=== PATIENT | male | born 1955 | race Two or more races ===

== ENCOUNTER 2017-04-28 11:39 | Inpatient (IN) | payer MEDICAID ==
[~2017-04-28] VITALS: Ht 180.3 cm; Wt 109.8 kg
--- NOTE | 2017-04-28 11:40 | NUR ---
PT BIBRA FROM BOARD AND CARE TO ER BED 11 FOR POSSIBLE FOOT ULCER INFECTION. PT IS C/O MIONIMAL PAIN. STATES DRESSING WOUND ON ITS OWN. 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 PER PARAMEDICS, OVER 300+ GOWNED AND PLACED ON MONITOR. NAD NOTED. AWAITING MD CARBAJAL.
--- NOTE | 2017-04-28 11:57 | NUR ---
DR RUGGIERO AT BEDSIDE FOR EVAL.
[2017-04-28] MEDS ORDERED: IV NS 0.9% 1,000 ML BAG IV ONE (12:00)
--- NOTE | 2017-04-28 12:07 | NUR ---
IV LINE STARTED BLOOD DRAWN AND SENT TO LAB.
[2017-04-28 12:10] LABS: EOSINOPHILS # (AUTO) 0.2 /CMM (0.0-0.7)
[2017-04-28 12:13] LABS: BASOPHILS # (AUTO) 0.4 /CMM (0.0-0.2); BASOPHILS % (AUTO) 1.5 % (0.0-2.0); EOSINOPHILS % (AUTO) 0.8 % (0.0-6.0); HEMATOCRIT 37 % (39-51); HEMOGLOBIN 12.4 g/dL (13.5-17.5); LYMPHOCYTES # (AUTO) 1.7 /CMM (0.8-4.8); LYMPHOCYTES % (AUTO) 6.6 % (20.0-44.0); MEAN CORPUSCULAR HEMOGLOBIN 28 PG (26.0-33.0); MEAN CORPUSCULAR HGB CONC 33 g/dl (31.0-36.0); MEAN CORPUSCULAR VOLUME 85 fL (80-96); MONOCYTES # (AUTO) 0.5 /CMM (0.1-1.30); MONOCYTES % (AUTO) 1.9 % (2.0-12.0); NEUTROPHILS # (AUTO) 22.2 /CMM (1.8-8.9); NEUTROPHILS % (AUTO) 89.2 % (43.0-81.0); PLATELET COUNT (AUTO) 593 /CMM (150-450); RDW COEFFICIENT OF VARIATION 12.9 (11.5-15.0)
--- NOTE | 2017-04-28 12:13 | NUR ---
RADIOLOGY AT BEDSIDE FOR CHEST AND L FOOT XRAY.
[2017-04-28 12:24] LABS: INR 1.1 (0.87-1.13); PROTHROMBIN TIME 11.5 SECS (9.5-12.7)
[2017-04-28 12:26] LABS: ALANINE AMINOTRANSFERASE 13 U/L (12-78); ALKALINE PHOSPHATASE 179 U/L (46-116); ASPARTATE AMINOTRANSFERASE 11 U/L (15-37); BILIRUBIN,DIRECT 0.3 mg/dL (0.0-0.2); BILIRUBIN,TOTAL 0.6 mg/dL (0.2-1.0); CALCIUM, SERUM 8.6 mg/dL (8.5-10.1); CARBON DIOXIDE 23 mmol/L (21-32); CHLORIDE 97 mmol/L (98-107); CREATININE 1.1 mg/dL (0.6-1.3); POTASSIUM 3.8 mmol/L (3.5-5.1); SODIUM SERUM 132 mmol/L (136-145); TOTAL PROTEIN, SERUM 8.8 g/dL (6.4-8.2); UREA NITROGEN, BLOOD 12 mg/dL (7-18)
[2017-04-28 12:28] LABS: GLUCOSE 387 mg/dL (74-106); TROPONIN I 0.395 ng/mL (0.00-0.056)
--- NOTE | 2017-04-28 12:29 | NUR ---
PAGED DR HANNA FOR ADMISSION.
[2017-04-28] MEDS ORDERED: VANCOMYCIN 1 GM in IV D5W 250 ML IV ONE (12:30)
[2017-04-28] MEDS ORDERED: CEFTRIAXONE 1GM BAG (ER ONLY) 50 ML IV ONE ×2 (12:30→12:40)
[2017-04-28] MEDS ORDERED: INSULIN REGULAR, HUMAN 100 UNIT/ML 10 ML VIAL ONE (12:40)
[2017-04-28] MEDS ORDERED: INSULIN REGULAR, HUMAN 100 UNIT/ML 10 ML VIAL IV ONE (13:00)
[2017-04-28] MEDS ORDERED: ASPIRIN 325 MG TABLET PO ONE (13:00)
[2017-04-28 13:19] LABS: BAND % (MANUAL) 1 % (0.0-5.0); EOSINOPHILS % (MANUAL) 1 % (0-4); LYMPHOCYTES % (MANUAL) 8 % (16-48); MONOCYTES % (MANUAL) 4 % (0-11.0); NEUTROPHILS % (MANUAL) 86 (42-76)
--- NOTE | 2017-04-28 13:39 | NUR ---
REPORT GIVEN TO YISSEL. PT AWAITING TRANSFER TO FLOOR.
[2017-04-28] MEDS ORDERED: METF500T4 PO (13:41)
[2017-04-28] MEDS ORDERED: HYDR12.5 PO (13:41)
--- NOTE | 2017-04-28 13:50 | NUR ---
CASH APPLICATIONS COORDINATOR NOTES RECEIVED PT FROM E.R. STAFF, PT AWAKE, ALERT AND ORIENTED, NO COMPLAINT OF PAIN, ASSISTED TO BED, MADE COMFORTABLE, ROOM SET UP ORIENTATION PROVIDED TO PT, VERBALIZED UNDERSTANDING, CALL LIGHT PLACED WITHIN REACH, WITH LEFT FOOT WOUND, DRESSING DRY AND INTACT, VITAL SIGNS TAKEN AND RECORDED, AWAITING ADMITTING ORDERS FROM MD.
[2017-04-28 14:00] VITALS: BP 150/92
[2017-04-28] MEDS ORDERED: IV 1/2NS 1000 ML 1,000 ML IV PRN (14:32)
[2017-04-28] MEDS ORDERED: ONDANSETRON HCL/PF 4 MG/2 ML VIAL IVP PRN (15:00)
[2017-04-28] MEDS ORDERED: HYDROCODONE/APAP 5/325MG 1 EACH TABLET PO PRN (15:00)
[2017-04-28] MEDS ORDERED: ZOLPIDEM TARTRATE 5 MG TABLET PO PRN (15:00)
[2017-04-28] MEDS ORDERED: MAG HYDROX/AL HYDROX/SIMETH 30 ML UDC PO PRN (15:00)
[2017-04-28] MEDS ORDERED: Z GUARD REMEDY 2 OZ OINT TP PRN (15:00)
[2017-04-28] MEDS ORDERED: DEXTROSE 50%-WATER 50 ML DISP.SYRIN IV PRN (15:00)
[2017-04-28] MEDS: BLOOD SUGAR DIAGNOSTIC 1 EACH STRIP IN SCH ×3 (15:09→21:03)
[2017-04-28] MEDS ORDERED: FEE PK DOSING 1 MIN EA MC ONE (15:36)
[2017-04-28 16:00] VITALS: BP 151/73
[2017-04-28] MEDS: DOCUSATE SODIUM 100 MG CAPSULE PO SCH ×2 (17:18→17:39)
[2017-04-28] MEDS: METFORMIN 500 MG TABLET PO SCH (17:19)
[2017-04-28] MEDS: IV 1/2NS 1000 ML 1,000 ML IV PRN (17:28)
[2017-04-28] MEDS: METOPROLOL TARTRATE 25 MG TABLET PO SCH ×2 (17:48→20:47)
[2017-04-28] MEDS: ASPIRIN 81 MG TAB.CHEW PO SCH (17:49)
--- NOTE | 2017-04-28 19:03 | NUR ---
DIRECT CARE STAFFER NOTES PT IN BED, AWAKE, ALERT AND ORIENTED, NO COMPLAINT OF PAIN OR ANY DISCOMFORT, BREATHING PATTERN NORMAL, SEEN BY DR. HANNA, PLAN OF CARE DISCUSSED WITH PT, DRESSING CHANGE DONE TO LEFT FOOT, NOTED WITH ELEVATED TROPONIN LEVEL THIS AFTERNOON, DR. HANNA INFORMED, ORDERS GIVEN AND CARRIED OUT, PT TO BE SEEN BY COSTUME DRAPER, PT COOPERATIVE AND COMPLIANT WITH CARE, NEEDS ATTENDED.
--- NOTE | 2017-04-28 19:50 | NUR ---
RN INITIAL NOTES: RECEIVED REPORT FROM YISSEL RIOS. PT IN BED, AWAKE, A/O X3 COOPERATIVE ON RA RESPIRATION EVEN AND UNLABORED, DENIES ANY PAIN OR DISCOMFORT AT THIS TIME. PT HAS RIGHT AC ANAYA ACCESS PATENT AND FLUSHING WELL, INFUSING WITH 1/2 NS AT 125ML/HR, IV ACCESS FREE FROM REDNESS OR INFILTRATION, LEFT FOOT DRESSING IN PLACED, OFFLOADED ON PILLOWS, HAS FOUL SMELLING ODOR, CURRENTLY ON SINUS RHYTHM WITH 1ST DEGREE AV BLOCK AND BBB HR 76, PT DENIES ANY CHEST PAIN OR DISCOMFORT. SAFETY PRECAUTIONS FOR FALL INITAITED CALL LIGHT IN REACH, WILL CONTINUE TO MONITOR
[2017-04-28 20:00] VITALS: BP 146/76
--- NOTE | 2017-04-28 20:00 | NUR ---
LEFT FOOT ASSESSMENT: PT DENIES ANY NUMBNESS OR TINGLING SENSATION ON LEFT LEG, DRESSING C/D/I, BUT WITH VERY FOUL SMELLING ODOR. OFFLOADED ON PILLOWS. PEDAL PULSES PALPABLE.
[2017-04-28] MEDS: ENOXAPARIN SODIUM 60 MG/0.6 ML DISP.SYRIN SQ SCH (20:48)
[2017-04-28] MEDS: *INSULIN REGULAR(HUMULIN R)HUM 100 UNIT/ML VIAL SQ PRN (21:04)
--- NOTE | 2017-04-28 21:04 | NUR ---
BLOOD SUGAR CHECK: CHECKED PT'S BLOOD SUGAR AND REVEAL 71, NO INSULIN GIVEN PER SLIDING SCALE. GIVEN PT SNACK SUCH JELLO AND CRANBERRY JUICE. WILL MONITOR PT FOR ANY S/S OF HYPO GLYCEMIA OR HYPERGLYCEMIA
--- NOTE | 2017-04-28 22:10 | NUR ---
RN NOTES: RELAYED TO DR CRANDALL REGARDING RESULT OF STAT EKG, PT'S ASYMPTOMATIC, DENIES ANY CHEST PAIN VSS, PER MD TO CONTINUE MONITORING THE PT.
[2017-04-29] VITALS: BP 132/75
[2017-04-29] MEDS: PIPERACILLIN /TAZOBACTAM 3.375 G in IV D5W 50 ML IV SCH ×5 (00:12→23:26)
[2017-04-29] MEDS: VANCOMYCIN 1.25 GM in IV D5W 500 ML IV SCH ×2 (01:23→14:22)
[2017-04-29] MEDS: IV 1/2NS 1000 ML 1,000 ML IV PRN (03:46)
[2017-04-29 04:00] VITALS: BP 139/72
--- NOTE | 2017-04-29 05:03 | NUR ---
WOUND CARE: NOTED BLOOD ON PT'S LEFT FOOT DRESSING, PT USED THE BATHROOM AND PUT PRESSURE ON LEFT FOOT, LEFT FOOT WOUND CLEANSED WITH NS PAT DRY OIL EMULSION APPLIED SO IT;S NOT GI=OING TO STICK IN THE DRESSING, COVERED WITH KERLIX, OFFLOADED ON PILLOW, AND ENCOURAGE PT NOT TO PUT WEIGHT ON LEFT FOOT, OR MUCH POSSIBLE USE URINAL, PT AGREE
[2017-04-29] MEDS: BLOOD SUGAR DIAGNOSTIC 1 EACH STRIP IN SCH ×4 (06:40→21:43)
[2017-04-29] MEDS: INSULIN REGULAR, HUMAN 100 UNIT/ML 3 ML VIAL SQ PRN (06:42)
--- NOTE | 2017-04-29 06:43 | NUR ---
ACCU CHECK: BLOOD SUGAR CHECK AT 0600AM AND REVEAL 198, HOWEVER PT REQUESTED TO CHECK THE BLOOD SUGAR AGAIN AT THIS TIME, IT REVEALS 181, 4UNITS OF INSULIN GIVEN PER SLIDING SCALE, WILL MONITOR PT FOR ANY S/S OF HYPOGLYCEMIA
--- NOTE | 2017-04-29 06:52 | NUR ---
RN CLOSING NOTES: PT IN BED, AWAKE, REMAINS ON RA RESPIRATION EVEN AND UNLABORED, REMAINS ON SINUS RHYTHM WITH 1ST DEGREE AV BLOCK, BBB AND INVERTED T WAVE HR 69 DENIES ANY PAIN OR DISCOMFORT. RIGHT AC IV ACCESS REMAINS PATENT AND FLUSHING WELL, INFUSING WITH 1/2 NS AT 125ML/HR. ALSO LEFT FOOT WOUND COVERED WITH DRESSING, DRESSING C/D/I, OFFLOADED ON PILLOWS. PT DENIES ANY NUMBNESS TINGLING SENSATION ON LEFT FOOT. PEDAL PULSES PATENT AND PALPABLE. OFFLOADED ON PILLOWS. VS REMAINS STABLE, NEEDS ATTENDED, SAFETY PRECAUTIONS FOR FALL REMAINS ENGAGED, CALL LIGHT IN REACH, WILL ENDORSE TO DAY RN FOR KRISTIE.
[2017-04-29 07:10] VITALS: BP 143/76
[2017-04-29 07:52] LABS: BASOPHILS # (AUTO) 0.2 /CMM (0.0-0.2); BASOPHILS % (AUTO) 0.8 % (0.0-2.0); EOSINOPHILS # (AUTO) 0.3 /CMM (0.0-0.7); EOSINOPHILS % (AUTO) 1.2 % (0.0-6.0); HEMATOCRIT 36 % (39-51); HEMOGLOBIN 11.7 g/dL (13.5-17.5); LYMPHOCYTES # (AUTO) 2.1 /CMM (0.8-4.8); LYMPHOCYTES % (AUTO) 9.1 % (20.0-44.0); MEAN CORPUSCULAR HEMOGLOBIN 28 PG (26.0-33.0); MEAN CORPUSCULAR HGB CONC 33 g/dl (31.0-36.0); MEAN CORPUSCULAR VOLUME 86 fL (80-96); MONOCYTES # (AUTO) 0.8 /CMM (0.1-1.30); MONOCYTES % (AUTO) 3.6 % (2.0-12.0); NEUTROPHILS % (AUTO) 85.3 % (43.0-81.0); PLATELET COUNT (AUTO) 557 /CMM (150-450); RDW COEFFICIENT OF VARIATION 14.1 (11.5-15.0); RED BLOOD CELL COUNT(AUTO) 4.14 MIL/uL (4.5-6.0); WHITE BLOOD COUNT (AUTO) 23.5 K/uL (4.3-11.0)
--- NOTE | 2017-04-29 08:20 | NUR ---
ms rn received on bed,awake,alert,oriented x4,not in any form of distress, respiration even and unlabored,no sob noted.denies pain at this time,all needs attended.
[2017-04-29 08:37] LABS: ALBUMIN 1.8 g/dL (3.4-5.0); BILIRUBIN,TOTAL 0.5 mg/dL (0.2-1.0); CALCIUM, SERUM 8.7 mg/dL (8.5-10.1); CREATININE 0.9 mg/dL (0.6-1.3); PHOSPHORUS 2.7 mg/dL (2.5-4.9); POTASSIUM 4.1 mmol/L (3.5-5.1); TOTAL PROTEIN, SERUM 7.9 g/dL (6.4-8.2)
[2017-04-29] MEDS ORDERED: METOPROLOL TARTRATE 25 MG TABLET PO SCH (09:00)
--- NOTE | 2017-04-29 10:00 | NUR ---
ms rn was seen by wound doctor, did bedside left foot debridement, tolerated well. will monitor patient.
[2017-04-29] MEDS: METFORMIN 500 MG TABLET PO SCH ×2 (10:05→17:03)
[2017-04-29] MEDS: ASPIRIN 81 MG TAB.CHEW PO SCH (10:06)
[2017-04-29] MEDS: METOPROLOL TARTRATE 25 MG TABLET PO SCH ×2 (10:06→21:44)
[2017-04-29] MEDS: DOCUSATE SODIUM 100 MG CAPSULE PO SCH ×2 (10:06→17:03)
[2017-04-29] MEDS: ENOXAPARIN SODIUM 60 MG/0.6 ML DISP.SYRIN SQ SCH ×2 (10:08→21:45)
--- NOTE | 2017-04-29 10:56 | NUR ---
WOUND CARE CONSULT: PT BEING SEEN BY MACHINE OPERATOR HAY STACKER AT THIS TIME. DEFER TO MACHINE OPERATOR HAY STACKER FOR WOUND TREATMENT PLAN. CURRENT KARI SCORE IS 21. PT STATES IS AMBULATORY AND CONTINENT. WILL SEE PRN.
[2017-04-29] MEDS ORDERED: CEFTRIAXONE 1 G in IV D5W 50 ML IV SCH (12:00)
--- NOTE | 2017-04-29 12:00 | NUR ---
ms rn blood sugar-163 - refused coverage (2 units), will monitor bs.
--- NOTE | 2017-04-29 14:30 | NUR ---
ms rn was seen by dr. dakotah driver/ orders made and carried out.
[2017-04-29 16:00] VITALS: BP 140/70
[2017-04-29] MEDS ORDERED: FUROSEMIDE 20 MG/2 ML VIAL IV ONE (16:00)
--- NOTE | 2017-04-29 17:50 | NUR ---
ms rn bs - 168 - refused coverage,claiming he already took metformin.
--- NOTE | 2017-04-29 18:16 | NUR ---
ms rn on bed,no distress noted, will endorse to specialty sales representative for continuity of care.
--- NOTE | 2017-04-29 19:33 | NUR ---
RN INITIAL NOTES: RECEIVED REPORT FROM SHILPI RIOS. PT IN BED, AWAKE, A/O X3 COOPERATIVE ON RA RESPIRATION EVEN AND UNLABORED, DENIES ANY PAIN OR DISCOMFORT AT THIS TIME. PT HAS RIGHT AC IV ACCESS PATENT AND FLUSHING WELL, INFUSING WITH VANCOMYCIN AT 250ML/HR, IV ACCESS FREE FROM REDNESS OR INFILTRATION, S/P LEFT FOOT WOUND DEBRIDEMENT 04/[address] ANDERSON. LEFT FOOT DRESSING IN PLACED, C/D/I, OFFLOADED ON PILLOWS, TROPONIN STILL ELEVATED DR MANCILLA AWARE, PT DENIES ANY CHEST PAIN OR DISCOMFORT AT THIS TIME. SAFETY PRECAUTIONS FOR FALL INITIATED CALL LIGHT IN REACH, WILL CONTINUE TO MONITOR
[2017-04-29 20:00] VITALS: BP 154/83
--- NOTE | 2017-04-29 20:07 | NUR ---
RN NOTES: MRI CHECKLIST COMPLETED, PT HAS ORDER FOR MRI LEFT FOOT
[2017-04-29 21:00] VITALS: BP 148/77
[2017-04-29] MEDS: ACETAMINOPHEN 325 MG TABLET PO PRN (21:43)
[2017-04-29] MEDS: ATORVASTATIN 40 MG TABLET PO SCH (21:44)
[2017-04-29] MEDS: *INSULIN REGULAR(HUMULIN R)HUM 100 UNIT/ML VIAL SQ PRN (21:44)
--- NOTE | 2017-04-29 21:46 | NUR ---
ACCU CHECK AND TYLENOL: CHECKED PT'S BLOOD SUGAR AND REVEAL 148, PT REFUSED FOR INSULIN HE STATED HE DOESNT WANT IT, ALSO PT C/O 3/10 PAIN ON HIS LEFT FOOT REQUESTING FOR TYLENOL, PRN TYLENOL 650 MG TAB PO ADMINISTERED TOP THE PT AT THIS TIME. WILL CONTINUE TO MONITOR
[2017-04-30] MEDS: VANCOMYCIN 1.25 GM in IV D5W 500 ML IV SCH ×2 (01:02→14:20)
[2017-04-30] MEDS: PIPERACILLIN /TAZOBACTAM 3.375 G in IV D5W 50 ML IV SCH ×3 (05:10→19:07)
[2017-04-30] MEDS: BLOOD SUGAR DIAGNOSTIC 1 EACH STRIP IN SCH ×4 (06:09→22:13)
[2017-04-30] MEDS: ACETAMINOPHEN 325 MG TABLET PO PRN (06:09)
[2017-04-30] MEDS: INSULIN REGULAR, HUMAN 100 UNIT/ML 3 ML VIAL SQ PRN ×3 (06:10→22:20)
--- NOTE | 2017-04-30 06:11 | NUR ---
ACCU CHECK: PT INSISTED ON CHECKING BLOOD SUGAR NOW BECAUSE HE STATED HE WILL TAKE MEDICATION AND WILL EAT SOME SNACK BECAUSE HE'S HUNGRY, BLOOD SUGAR IS 149, HE ALSO REFUSED FOR INSULIN COVERAGE, EDUCATION PROVIDED TO THE PT
--- NOTE | 2017-04-30 06:12 | NUR ---
PRN TYLENOL: TYLENOL 650 MG TAB PO ADMINISTERED TO THE PT FOR C/O OF 3/10 FOOT PAIN, PT REQUESTED TYLENOL FOR PAIN MANAGEMENT
--- NOTE | 2017-04-30 06:50 | NUR ---
RN CLOSING NOTES: PT IN BED, AWAKE, REMAINS ON RA RESPIRATION EVEN AND UNLABORED, DENIES ANY PAIN OR DISCOMFORT. RIGHT AC IV ACCESS REMAINS PATENT AND FLUSHING WELL,ON HL. LEFT FOOT WOUND COVERED WITH DRESSING, DRESSING WITH SOME BLOOD STAINED, OFFLOADED ON PILLOWS. PT DENIES ANY NUMBNESS TINGLING SENSATION ON LEFT FOOT. VS REMAINS STABLE, NEEDS ATTENDED, SAFETY PRECAUTIONS FOR FALL REMAINS ENGAGED, CALL LIGHT IN REACH, WILL ENDORSE TO DAY RN FOR KRISTIE.
--- NOTE | 2017-04-30 07:05 | NUR ---
RN MS NOTES PATIENT ALERT AND ORIENTED, BREATHING EVEN AND UNLABORED, DENIES PAIN AT THIS TIME, NO S/SX OF HYPO OR HYPERGLYCEMIA NOTED, LEFT FOOT WOUND DRESSING C/D/I, NEEDS ATTENDED AND ANTICIPATED, SAFETY MEASURES IN PLACED, CALL LIGHT WITHIN REACH, WILL CONTINUE TO MONITOR.
[2017-04-30 07:23] LABS: CALCIUM, SERUM 8.8 mg/dL (8.5-10.1); POTASSIUM 4.1 mmol/L (3.5-5.1)
[2017-04-30 08:00] VITALS: BP 166/90
--- NOTE | 2017-04-30 09:00 | NUR ---
RN MS NOTES TREATMENT RENDERED ORDERED, DRESSING CHANGED BY DR. ANDERSON. AM CARE RENDERED.
[2017-04-30] MEDS: METFORMIN 500 MG TABLET PO SCH ×2 (09:15→17:38)
[2017-04-30] MEDS: ASPIRIN 81 MG TAB.CHEW PO SCH (09:15)
[2017-04-30] MEDS: METOPROLOL TARTRATE 25 MG TABLET PO SCH ×2 (09:15→21:22)
[2017-04-30] MEDS: DOCUSATE SODIUM 100 MG CAPSULE PO SCH ×2 (09:15→17:38)
[2017-04-30] MEDS: DAKINS HALF STRENGTH (0.25%) 480 ML BOTTLE TOP SCH (09:19)
[2017-04-30] MEDS: ENOXAPARIN SODIUM 60 MG/0.6 ML DISP.SYRIN SQ SCH ×2 (09:23→21:25)
[2017-04-30] MEDS: LISINOPRIL (10MG) 10 MG TABLET PO SCH (14:24)
[2017-04-30 16:00] VITALS: BP 158/89
[2017-04-30] MEDS: LACTOBACILLUS RHAMNOSUS GG 1 EACH CAP.SPRINK PO SCH (17:38)
--- NOTE | 2017-04-30 19:57 | NUR ---
RN MS NOTES PATIENT ALERT AND ORIENTED X4, IN NO DISTRESS, WOUND TREATMENT DONE, DRESSING C/D/I, PATIENT ABLE TO TRANSFER HIMSELF FROM BED TO CHAIR, ALL DUE MEDICATIONS PROVIDED, DENIES PAIN AND DISCOMFORT, ALL NEEDS ATTENDED AND MET, NO S/SX OF HYPO/HYPERGLYCEMIA, CALL LIGHT WITHIN REACH, SAFETY MEASURES IN PLACED, WILL ENDORSE TO PATHOLOGIST FOR KRISTIE.
[2017-04-30 20:00] VITALS: BP 147/80
--- NOTE | 2017-04-30 20:00 | NUR ---
RN NOTES RECEIVED PATIENT IN BED, ALERT AND ORIENTED X4, CALM, NO SOB, ON ROOM AIR, SPO2 94%, DENIES ANY PAIN AT THIS TIME, RIGHT AC SALINE LOCK IS ON KVO, LEFT FOOT ULCER SECURED WITH DRESSING, NOTED MODERATE BLEEDING, DRESSING WILL NEED TO BE CHANGED, NEEDS ATTENDED, CALL LIGHT WITHIN REACH.
[2017-04-30] MEDS: ATORVASTATIN 40 MG TABLET PO SCH (22:13)
--- NOTE | 2017-04-30 22:49 | NUR ---
RN NOTES WOUND CARE PERFORMED TO LEFT FOOT, TOLERATED WELL, OFFLOADED. GIVEN NORCO 5/325 MG PO FOR PAIN OF 6/10. NEEDS ATTENDED, CALL LIGHT WITHIN REACH,
[2017-05-01] MEDS: PIPERACILLIN /TAZOBACTAM 3.375 G in IV D5W 50 ML IV SCH ×3 (00:36→12:07)
[2017-05-01] MEDS: VANCOMYCIN 1.25 GM in IV D5W 500 ML IV SCH ×2 (02:18→15:05)
--- NOTE | 2017-05-01 06:30 | NUR ---
RN NOTES PATIENT IN BED, AWAKE AND ALERT, NO SOB, NO RESPIRATORY DISTRESS, NO COMPLAIN OF PAIN, LEFT AC PERIPHERAL LINE IS PATENT AND INFUSING WELL, NO ADVERSE SIDE EFFECTS TO MEDICATION, COMPLIANT WITH TREATMENT AND MEDICATIONS, CHANGED DRESSING TO LEFT FOOT WOUND, OFFLOADED, ALL DUE MEDICATIONS GIVEN, CALL LIGHT WITHIN REACH.
[2017-05-01] MEDS: BLOOD SUGAR DIAGNOSTIC 1 EACH STRIP IN SCH ×4 (06:44→21:58)
[2017-05-01] MEDS: INSULIN REGULAR, HUMAN 100 UNIT/ML 3 ML VIAL SQ PRN ×3 (06:50→17:29)
[2017-05-01 07:57] LABS: BASOPHILS # (AUTO) 0.1 /CMM (0.0-0.2); BASOPHILS % (AUTO) 0.5 % (0.0-2.0); EOSINOPHILS # (AUTO) 0.5 /CMM (0.0-0.7); EOSINOPHILS % (AUTO) 2.8 % (0.0-6.0); HEMATOCRIT 39 % (39-51); HEMOGLOBIN 12.9 g/dL (13.5-17.5); LYMPHOCYTES # (AUTO) 3.1 /CMM (0.8-4.8); LYMPHOCYTES % (AUTO) 17.5 % (20.0-44.0); MEAN CORPUSCULAR HEMOGLOBIN 28 PG (26.0-33.0); MEAN CORPUSCULAR HGB CONC 33 g/dl (31.0-36.0); MEAN CORPUSCULAR VOLUME 85 fL (80-96); MONOCYTES # (AUTO) 0.7 /CMM (0.1-1.30); MONOCYTES % (AUTO) 3.7 % (2.0-12.0); NEUTROPHILS # (AUTO) 13.5 /CMM (1.8-8.9); NEUTROPHILS % (AUTO) 75.5 % (43.0-81.0); PLATELET COUNT (AUTO) 651 /CMM (150-450); RDW COEFFICIENT OF VARIATION 14.1 (11.5-15.0); RED BLOOD CELL COUNT(AUTO) 4.53 MIL/uL (4.5-6.0); WHITE BLOOD COUNT (AUTO) 17.9 K/uL (4.3-11.0)
[2017-05-01 08:00] VITALS: BP 152/81
[2017-05-01 08:18] LABS: CALCIUM, SERUM 9.3 mg/dL (8.5-10.1); MAGNESIUM 2.1 mg/dL (1.8-2.4); PHOSPHORUS 3.4 mg/dL (2.5-4.9); POTASSIUM 4.7 mmol/L (3.5-5.1)
[2017-05-01] MEDS: METFORMIN 500 MG TABLET PO SCH ×2 (08:36→17:13)
[2017-05-01] MEDS: ASPIRIN 81 MG TAB.CHEW PO SCH (08:36)
[2017-05-01] MEDS: METOPROLOL TARTRATE 25 MG TABLET PO SCH ×2 (08:37→21:58)
[2017-05-01] MEDS: LACTOBACILLUS RHAMNOSUS GG 1 EACH CAP.SPRINK PO SCH ×2 (08:37→17:13)
[2017-05-01] MEDS: LISINOPRIL (10MG) 10 MG TABLET PO SCH (08:37)
[2017-05-01] MEDS: DOCUSATE SODIUM 100 MG CAPSULE PO SCH ×2 (08:37→17:13)
[2017-05-01] MEDS: ENOXAPARIN SODIUM 60 MG/0.6 ML DISP.SYRIN SQ SCH (08:40)
--- NOTE | 2017-05-01 09:30 | NUR ---
m/s process checker: dpm f/u seen and tx done to left foot wound by dr. jimenez at this time, shane. well. instructed to call for assistance. will continue to monitor.
[2017-05-01] MEDS: DAKINS HALF STRENGTH (0.25%) 480 ML BOTTLE TOP SCH (09:57)
[2017-05-01] MEDS: CLOPIDOGREL BISULFATE 75 MG TABLET PO SCH (11:45)
--- NOTE | 2017-05-01 11:45 | NUR ---
m/s chef's assistant: md visit seen and examined by dr. claire at this time and updated plan of care. for picc line placement before d'c per md and pt verbalized understanding.
[2017-05-01 16:00] VITALS: BP 144/74
--- NOTE | 2017-05-01 18:45 | NUR ---
m/s truck crane operator: notes pt resting comfortable in bed with no distress noted. needs attended. awaiting for ampicillin ivpb med, f/u made and spoke to enio (pharmacist) about it. instructed to call for assistance. will continue to monitor.
--- NOTE | 2017-05-01 19:20 | NUR ---
RN OPEN NOTES RECEIVED PATIENT AWAKE IN BED. A/O X4. NO SIGNS OF DISTRESS OR DISCOMFORT. BREATHING EVEN AND UNLABORED. IV ACCESS IN L HAND WITH VANCO CURRENTLY INFUSING, PATENT AND INTACT, NO SIGNS OF REDNESS OR INFILTRATION. DRESSING ON L FOOT C/D/I. DENIES ANY PAIN AT THIS TIME. BED IN LOW LOCKED POSITION WITH SIDE RAILS X2. CALL LIGHT WITHIN REACH. WILL CONTINUE TO MONITOR.
[2017-05-01 20:00] VITALS: BP 154/74
[2017-05-01] MEDS: AMPICILLIN SODIUM 2 GM in IV NS 0.9% 100 ML IV SCH (20:00)
[2017-05-01 20:20] VITALS: BP 154/74
[2017-05-01] MEDS: METRONIDAZOLE 500 MG TABLET PO SCH (21:57)
[2017-05-01] MEDS: ATORVASTATIN 40 MG TABLET PO SCH (21:59)
[2017-05-02] MEDS: AMPICILLIN SODIUM 2 GM in IV NS 0.9% 100 ML IV SCH ×5 (00:33→23:43)
[2017-05-02] MEDS: METRONIDAZOLE 500 MG TABLET PO SCH ×3 (05:56→21:07)
[2017-05-02] MEDS: BLOOD SUGAR DIAGNOSTIC 1 EACH STRIP IN SCH ×4 (06:37→18:13)
[2017-05-02] MEDS: INSULIN REGULAR, HUMAN 100 UNIT/ML 3 ML VIAL SQ PRN ×3 (06:40→18:14)
--- NOTE | 2017-05-02 07:43 | NUR ---
RN CLOSING NOTES PATIENT AWAKE IN BED. A/O X4. NO SIGNS OF DISTRESS OR DISCOMFORT. BREATHING EVEN AND UNLABORED. IV ACCESS IN L HAND PATENT AND INTACT, NO SIGNS OF REDNESS OR INFILTRATION. DRESSING ON L FOOT C/D/I. DENIES ANY PAIN AT THIS TIME. ALL NEEDS MET. NO SIGNIFICANT CHANGES THROUGH THE NIGHT. BED IN LOW LOCKED POSITION WITH SIDE RAILS X2. CALL LIGHT WITHIN REACH. ENDORSED TO AM SHIFT FOR KRISTIE.
[2017-05-02 07:47] LABS: CALCIUM, SERUM 8.9 mg/dL (8.5-10.1); POTASSIUM 4.2 mmol/L (3.5-5.1)
--- NOTE | 2017-05-02 07:53 | NUR ---
RN NOTES RECEIVED PT. PT IS AWAKE AND RESTING IN BED, A/OX4. NO S/S OF DISTRESS OR SOB. NO C/O PAIN AT THIS TIME. IV ACCESS LOCATED ON LEFT HAND 22G, CURRENTLY SL. SAFETY MEASURES IN PLACE, CALL LIGHT WITHIN REACH. WILL CONTINUE TO MONITOR.
[2017-05-02 08:00] VITALS: BP 155/87
[2017-05-02] MEDS: CLOPIDOGREL BISULFATE 75 MG TABLET PO SCH (08:40)
[2017-05-02] MEDS: ASPIRIN 81 MG TAB.CHEW PO SCH (08:40)
[2017-05-02] MEDS: DOCUSATE SODIUM 100 MG CAPSULE PO SCH ×2 (08:40→17:15)
[2017-05-02] MEDS: LACTOBACILLUS RHAMNOSUS GG 1 EACH CAP.SPRINK PO SCH ×2 (08:40→17:13)
[2017-05-02] MEDS: METFORMIN 500 MG TABLET PO SCH ×2 (08:40→17:13)
[2017-05-02] MEDS: LISINOPRIL (10MG) 10 MG TABLET PO SCH ×2 (08:41→17:15)
[2017-05-02] MEDS: METOPROLOL TARTRATE 25 MG TABLET PO SCH ×2 (08:41→21:07)
[2017-05-02] MEDS: DAKINS HALF STRENGTH (0.25%) 480 ML BOTTLE TOP SCH (09:00)
[2017-05-02 16:00] VITALS: BP 162/80
--- NOTE | 2017-05-02 19:25 | NUR ---
MS RN OPENING NOTES: RECEIVED PT IN BED AND IS SLEEPING AT THIS TIME. NO S/S OF DISTRESS OR SOB NOTED. CALL LIGHT WITHIN PT'S REACH. PT HAS IV ON L HAND 22G AND IS PATENT AND INTACT. BED KEPT IN LOW, LOCKED POSITION, AND SIDE RAILS X 2UP. WILL CONTINUE TO MONITOR PT.
--- NOTE | 2017-05-02 19:52 | NUR ---
RN CLOSING NOTES PATIENT IN BED SLEEPING. NO S/S OF DISTRESS OR SOB. DRESSING CHANGED PERFORMED FOR LEFT LOWER EXTREMITY. ALL NEEDS ANTICIPATED AND MET. SAFETY MEASURES IN PLACE, CALL LIGHT IN REACH. WILL ENDORSE TO BELL TIER FOR KRISTIE.
[2017-05-02 20:00] VITALS: BP 172/82
[2017-05-02] MEDS: ATORVASTATIN 40 MG TABLET PO SCH (21:07)
[2017-05-02 22:12] VITALS: BP 124/80
[2017-05-03] MEDS: METRONIDAZOLE 500 MG TABLET PO SCH ×3 (04:56→20:04)
[2017-05-03] MEDS: AMPICILLIN SODIUM 2 GM in IV NS 0.9% 100 ML IV SCH ×4 (05:00→23:02)
[2017-05-03] MEDS: BLOOD SUGAR DIAGNOSTIC 1 EACH STRIP IN SCH ×4 (06:15→21:53)
[2017-05-03] MEDS: INSULIN REGULAR, HUMAN 100 UNIT/ML 3 ML VIAL SQ PRN (07:06)
--- NOTE | 2017-05-03 07:10 | NUR ---
MS RN NOTES: BLOOD SUGAR WAS 165 THIS AM. 4 UNITS OF INSULIN WAS COVERED. WILL CONTINUE TO MONITOR PT.
--- NOTE | 2017-05-03 07:30 | NUR ---
MS RN CLOSING NOTES: ALL NEEDS WERE ATTENDED AND ANTICIPATED FOR. PT DID NOT WANT DRESSING CHANGED. HE VERBALIZED THAT IT IS STILL CLEAN AND PREFERS TO HAVE IT DONE AT A LATER TIME. NO S/S OF DISTRESS OR SOB NOTED AT THIS TIME. CALL LIGHT WITHIN PT'S REACH. PT HAS IV ON L HAND 22G AND IS PATENT AND INTACT. PT IS CURRENTLY H/L. WAS ABLE TO GET PT'S SIGNATURE TO CONSENT TO GET MEDICAL RECORDS FROM OTHER HOSPITAL. ENDORSED TO AM NURSE TO FAX IT OVER. BED KEPT IN LOW, LOCKED POSITION, AND SIDE RAILS X 2UP. ENDORSED TO AM NURSE FOR KRISTIE.
[2017-05-03 08:00] VITALS: BP 173/80
--- NOTE | 2017-05-03 08:17 | NUR ---
RN NOTES RECEIVED PT. PT IS STABLE AND AWAKE IN BEDSIDE CHAIR. A/OX3. NO S/S OF DISTRESS OR SOB. NO C/O PAIN AT THIS TIME. LEFT LE WOUND DRESSING APPEARS CLEAN. PT IS ON RA WITH O2 SAT ABOVE 95%. IV ACCESS ON LEFT HAND 22G, SL. WILL ADDRESS ALL PT NEEDS. SAFETY MEASURES IN PLACE, CALL LIGHT WITHIN REACH. WILL CONTINUE TO MONITOR.
[2017-05-03 08:22] LABS: CALCIUM, SERUM 9.3 mg/dL (8.5-10.1); CREATININE 0.9 mg/dL (0.6-1.3); POTASSIUM 4.3 mmol/L (3.5-5.1)
[2017-05-03] MEDS: LACTOBACILLUS RHAMNOSUS GG 1 EACH CAP.SPRINK PO SCH ×2 (08:57→17:25)
[2017-05-03] MEDS: CLOPIDOGREL BISULFATE 75 MG TABLET PO SCH (08:57)
[2017-05-03] MEDS: DOCUSATE SODIUM 100 MG CAPSULE PO SCH ×2 (08:57→17:24)
[2017-05-03] MEDS: DAKINS HALF STRENGTH (0.25%) 480 ML BOTTLE TOP SCH (08:57)
[2017-05-03] MEDS: ASPIRIN 81 MG TAB.CHEW PO SCH (08:57)
[2017-05-03] MEDS: METFORMIN 500 MG TABLET PO SCH ×2 (08:57→17:24)
[2017-05-03] MEDS: METOPROLOL TARTRATE 25 MG TABLET PO SCH ×2 (09:01→20:04)
[2017-05-03] MEDS: LISINOPRIL (10MG) 10 MG TABLET PO SCH ×2 (09:01→17:24)
[2017-05-03] MEDS: *INSULIN REGULAR(HUMULIN R)HUM 100 UNIT/ML VIAL SQ PRN ×3 (11:37→22:11)
[2017-05-03 16:00] VITALS: BP 142/78
--- NOTE | 2017-05-03 18:41 | NUR ---
RN CLOSING NOTES PT IN BED RESTING. A/OX3. NO S/S OF DISTRESS OR SOB AT THIS TIME. LE WOUND DRESSING CHANGE PERFORMED. RECEIVED CALL FROM DAUGHTER, JOSEF, REQUESTING TO SPEAK WITH MD AND FOR PSYCH CONSULT. DAUGHTER INSISTS THAT PT IS NON COMPLIANT WITH MEDICATION REGIMEN WHEN AT HOME, LEADING TO EXACERBATION OF SCHIZOPHRENIA SYMPTOMS. ANTICIPATED AND MET ALL PT NEEDS. SAFETY MEASURES IN PLACE. CALL LIGHT WITHIN REACH. WILL ENDORSE TO HEAT TREAT SUPERVISOR FOR KRISTIE. Addendum: 05/03/17 at 1846 by BLUE HARRISON DAUGHTER: JOSEF SCHROEDER
--- NOTE | 2017-05-03 19:05 | NUR ---
MS RN OPENING NOTES: RECEIVED PT SITTING UP IN CHAIR. PT IS A/OX 3-4. PT HAS IV ON L HAND #22G AND IS PATENT AND INTACT. PT IS CURRENTLY H/L. NO S/S OF DISTRESS NOTED AT THIS TIME. NO SOB OR PAIN VERBALIZED. CALL LIGHT WITHIN PT'S REACH. BED KEPT IN LOW, LOCKED POSITION, AND SIDE RAILS X 2 UP. BED KEPT IN LOW, LOCKED POSITION, AND SIDE RAILS X 2 UP. WILL CONTINUE TO MONITOR PT.
[2017-05-03 20:00] VITALS: BP 141/73
[2017-05-03] MEDS: ATORVASTATIN 40 MG TABLET PO SCH (21:53)
--- NOTE | 2017-05-03 22:14 | NUR ---
MS RN NOTES: BLOOD SUGAR WAS 134. 2 UNITS OF INSULIN WAS ADMINISTERED. WILL CONTINUE TO MONITOR PT.
[2017-05-04] MEDS: METRONIDAZOLE 500 MG TABLET PO SCH ×3 (05:05→20:09)
[2017-05-04] MEDS: AMPICILLIN SODIUM 2 GM in IV NS 0.9% 100 ML IV SCH ×4 (05:05→23:00)
[2017-05-04] MEDS: BLOOD SUGAR DIAGNOSTIC 1 EACH STRIP IN SCH ×4 (06:33→21:32)
[2017-05-04] MEDS: INSULIN REGULAR, HUMAN 100 UNIT/ML 3 ML VIAL SQ PRN ×2 (06:45→11:55)
--- NOTE | 2017-05-04 06:48 | NUR ---
MS RN NOTES: BLOOD SUGAR THIS AM WAS 157. 2 UNITS OF INSULIN WAS COVERED. WILL CONTINUE TO MONITOR PT.
--- NOTE | 2017-05-04 07:05 | NUR ---
MS RN CLOSING NOTES: ALL NEEDS WERE ATTENDED AND ANTICIPATED FOR .DRESSING ON L FOOT PERFORMED THIS AM. PT IS RESTING IN BED. PS IS A/OX3-4. PT HAS IV ON L HAND #22G AND IS PATENT AND INTACT. PT IS CURRENTLY H/L. NO S/S OF DISTRESS NOTED AT THIS TIME. NO SOB OR PAIN VERBALIZED. CALL LIGHT WITHIN PT'S REACH. BED KEPT IN LOW, LOCKED POSITION, AND SIDE RAILS X 2 UP. BED KEPT IN LOW, LOCKED POSITION, AND SIDE RAILS X 2 UP. ENDORSED TO AM NURSE FOR KRISTIE.
[2017-05-04 07:16] LABS: MAGNESIUM 1.8 mg/dL (1.8-2.4); PHOSPHORUS 3.2 mg/dL (2.5-4.9); POTASSIUM 4.7 mmol/L (3.5-5.1)
[2017-05-04 07:54] LABS: BASOPHILS % (AUTO) 0.2 % (0.0-2.0); EOSINOPHILS # (AUTO) 0.3 /CMM (0.0-0.7); EOSINOPHILS % (AUTO) 1.8 % (0.0-6.0); HEMATOCRIT 39 % (39-51); HEMOGLOBIN 12.9 g/dL (13.5-17.5); LYMPHOCYTES # (AUTO) 3.2 /CMM (0.8-4.8); LYMPHOCYTES % (AUTO) 20.2 % (20.0-44.0); MEAN CORPUSCULAR HEMOGLOBIN 28 PG (26.0-33.0); MEAN CORPUSCULAR HGB CONC 33 g/dl (31.0-36.0); MEAN CORPUSCULAR VOLUME 86 fL (80-96); MONOCYTES # (AUTO) 0.7 /CMM (0.1-1.30); MONOCYTES % (AUTO) 4.2 % (2.0-12.0); NEUTROPHILS # (AUTO) 11.5 /CMM (1.8-8.9); NEUTROPHILS % (AUTO) 73.6 % (43.0-81.0); PLATELET COUNT (AUTO) 578 /CMM (150-450); RDW COEFFICIENT OF VARIATION 14.8 (11.5-15.0); RED BLOOD CELL COUNT(AUTO) 4.57 MIL/uL (4.5-6.0); WHITE BLOOD COUNT (AUTO) 15.7 K/uL (4.3-11.0)
[2017-05-04 08:00] VITALS: BP 155/82
[2017-05-04] MEDS: LACTOBACILLUS RHAMNOSUS GG 1 EACH CAP.SPRINK PO SCH ×2 (08:24→16:38)
[2017-05-04] MEDS: METOPROLOL TARTRATE 25 MG TABLET PO SCH ×2 (08:25→20:09)
[2017-05-04] MEDS: LISINOPRIL (10MG) 10 MG TABLET PO SCH ×2 (08:25→16:38)
[2017-05-04] MEDS: ASPIRIN 81 MG TAB.CHEW PO SCH (08:25)
[2017-05-04] MEDS: METFORMIN 500 MG TABLET PO SCH ×2 (08:25→16:37)
[2017-05-04] MEDS: CLOPIDOGREL BISULFATE 75 MG TABLET PO SCH (08:25)
[2017-05-04] MEDS: DOCUSATE SODIUM 100 MG CAPSULE PO SCH ×2 (08:27→16:38)
[2017-05-04] MEDS: DAKINS HALF STRENGTH (0.25%) 480 ML BOTTLE TOP SCH (08:27)
--- NOTE | 2017-05-04 08:30 | NUR ---
MS RN OPENING NOTE PATIENT IS ALERT AND ORIENTED x4. NO PAIN AT THIS TIME. NO SOB OR DISTRESS NOTED. ON ROOM AIR, O2 SAT AT 97%. CALL LIGHT WITHIN REACH. SAFETY MEASURES IMPLEMENTED. ABLE TO COMMUNICATE. BRP AMBULATES WITH ASSISTANCE. HAS LEFT FOOT WOUND THAT WILL REQUIRE TREATMENT ON MY SHIFT. DIABETIC DIET. COMPLIANT WITH MEDICATIONS AND TREATMENT. PER RNFA NURSE WILL REQUIRE PICC LINE INSERTION FOR 6 WEEK COURSE ANTIBIOTICS. PATIENT DECLINES CARDIAC CATH. BLOOD SUGAR MONITORING TO BE DONE. WILL CONTINUE TO MONITOR THROUGHOUT SHIFT
--- NOTE | 2017-05-04 12:17 | NUR ---
MS RN NOTE BLOOD SUGAR CHECKED- 194. INSULIN GIVEN -4 UNITS.
[2017-05-04 16:00] VITALS: BP 140/79
--- NOTE | 2017-05-04 18:48 | NUR ---
MS RN CLOSING NOTE PATIENT IS ALERT AND ORIENTED x4. NO PAIN AT THIS TIME. NO SOB OR DISTRESS NOTED. CALL LIGHT WITHIN REACH AT ALL TIMES. SAFETY MEASURES IMPLEMENTED. ABLE TO COMMUNICATE NEEDS. WOUND TREATMENT DONE. ALL DUE MEDICATIONS GIVEN ORDERED. ALL NURSING CARE NEEDS ATTENDED TO. BLOOD SUGAR MONITORED THROUGHOUT SHIFT, LAST SUGAR 105 NO INSULIN NEEDED. AWAITING PSYCH CONSULT WITH DR. FLOYD. WILL ENDORSE TO AED TRAINER FOR KRISTIE
--- NOTE | 2017-05-04 19:22 | NUR ---
MS RN OPENING NOTES: RECEIVED PT AND IS A/OX4. PAIN DENIES ANY PAIN AT THIS TIME. NO SOB/DISTRESS NOTED AT THIS TIME. CALL LIGHT WITHIN PT'S REACH. CANE AT REACH WELL. PT RESTING COMFORTABLY. PT HAS IV ON R HAND #22G AND IS PATENT AND INTACT. ENDORSED THAT PT WILL HAVE PSYCH CONSULT TOMORROW. WILL CONTINUE TO MONITOR PT.
[2017-05-04 20:00] VITALS: BP 144/99
[2017-05-04] MEDS: *INSULIN REGULAR(HUMULIN R)HUM 100 UNIT/ML VIAL SQ PRN (21:37)
[2017-05-04] MEDS: ATORVASTATIN 40 MG TABLET PO SCH (21:38)
--- NOTE | 2017-05-04 21:38 | NUR ---
MS RN NOTES: HAD TO MANUALLY ENTER BARCODE SINCE PART OF BARCODE FROM MEDICATION WAS PEELED OFF AND BAR GUN WOULD NOT SCAN FOR LIPITOR 40MG.
--- NOTE | 2017-05-04 21:38 | NUR ---
MS RN NOTES: BLOOD SUGAR WAS 151. 2 UNITS OF INSULIN WAS ADMINISTERED. WILL CONTINUE TO MONITOR PT.
[2017-05-04 22:47] VITALS: BP 147/85
[2017-05-05] MEDS: AMPICILLIN SODIUM 2 GM in IV NS 0.9% 100 ML IV SCH ×4 (05:01→23:10)
[2017-05-05] MEDS: METRONIDAZOLE 500 MG TABLET PO SCH ×3 (05:01→21:04)
[2017-05-05] MEDS: BLOOD SUGAR DIAGNOSTIC 1 EACH STRIP IN SCH ×4 (06:02→21:02)
--- NOTE | 2017-05-05 06:29 | NUR ---
MS RN CLOSING NOTES: ALL NEEDS WERE ATTENDED AND ANTICIPATED FOR. DRESSING ON L WOUND TREATMENT PERFORMED THIS AM. PT IS A/OX 4. PT IS SITTING UP IN BED. PT DENIES ANY PAIN AT THIS TIME. NO S/S OF DISTRESS NOTED AT THIS TIME. NO SOB NOTED AT THIS TIME. CANE AT BEDSIDE WELL. PT HAS IV ON R HAND #22G AND IS PATENT AND INTACT. PT CURRENTLY H/L. BLOOD SUGAR THIS AM WAS 153. 2 UNITS OF INSULIN TO BE ADMINISTERED. CALL LIGHT WITHIN PT'S REACH. BED KEPT IN LOW, LOCKED POSITION, AND SIDE RAILS X 2 UP. WILL ENDORSE TO AM NURSE FOR KRISTIE.
[2017-05-05] MEDS: INSULIN REGULAR, HUMAN 100 UNIT/ML 3 ML VIAL SQ PRN ×3 (06:59→17:16)
--- NOTE | 2017-05-05 07:30 | NUR ---
AM RN NOTE Received patient awake, A/O X3 verbally responsive. No acute distress noted. Resp even and non-labored. IV site intact and patent. Dressing intact on left foot. Will continue to monitor. Call light with in reach.
[2017-05-05 08:00] VITALS: BP 111/77
[2017-05-05] MEDS: LACTOBACILLUS RHAMNOSUS GG 1 EACH CAP.SPRINK PO SCH ×2 (08:30→17:11)
[2017-05-05] MEDS: DOCUSATE SODIUM 100 MG CAPSULE PO SCH ×2 (08:30→17:11)
[2017-05-05] MEDS: CLOPIDOGREL BISULFATE 75 MG TABLET PO SCH (08:30)
[2017-05-05] MEDS: ASPIRIN 81 MG TAB.CHEW PO SCH (08:31)
[2017-05-05] MEDS: LISINOPRIL (10MG) 10 MG TABLET PO SCH ×2 (08:31→17:12)
[2017-05-05] MEDS: METFORMIN 500 MG TABLET PO SCH ×2 (08:31→17:11)
[2017-05-05] MEDS: METOPROLOL TARTRATE 25 MG TABLET PO SCH ×2 (08:31→21:03)
[2017-05-05] MEDS: DAKINS HALF STRENGTH (0.25%) 480 ML BOTTLE TOP SCH (08:32)
--- NOTE | 2017-05-05 15:48 | NUR ---
AM RN NOTE Patient IV site noted with leakage, re-inserted new site on right hand #22 x1 attempt.
[2017-05-05 16:00] VITALS: BP 154/90
--- NOTE | 2017-05-05 18:56 | NUR ---
AM RN NOTE Patient awake, denies any pain or discomfort at this time. All needs met and attended in timely manner. IV site intact and patent. Will endorse care to next shift.
--- NOTE | 2017-05-05 19:35 | NUR ---
MS RN INITIAL NOTES PT IS SITTING UP IN THE CHAIR, A/O X3. NO SIGNS OF SOB OR DISTRESS. BREATHING EVENLY AND UNLABORED ON ROOM AIR. DENIES PAIN AT THIS TIME. DRESSING IN FOOT IS INTACT. CALL LIGHT WITHIN REACH. WILL CONTINUE TO MONITOR.
[2017-05-05 20:00] VITALS: BP 143/73
[2017-05-05] MEDS: ATORVASTATIN 40 MG TABLET PO SCH (21:03)
[2017-05-06] MEDS: METRONIDAZOLE 500 MG TABLET PO SCH ×2 (04:55→12:40)
[2017-05-06] MEDS: AMPICILLIN SODIUM 2 GM in IV NS 0.9% 100 ML IV SCH ×2 (05:00→12:40)
[2017-05-06] MEDS: INSULIN REGULAR, HUMAN 100 UNIT/ML 3 ML VIAL SQ PRN ×2 (06:06→12:42)
[2017-05-06] MEDS: BLOOD SUGAR DIAGNOSTIC 1 EACH STRIP IN SCH ×2 (06:06→12:40)
--- NOTE | 2017-05-06 06:25 | NUR ---
MS RN CLOSING NOTES PT IS IN BED A/O X3 ABLE TO MAKE NEEDS KNOWN. NO SIGNS OF SOB OR DISTRESS. WOUND CARE RENDERED. ALL NEEDS WERE ANTICIPATED AND MET. BED IS IN LOW AND LOCKED POSITION, CALL LIGHT WITHIN REACH. WILL ENDORSE TO DAY SHIFT
--- NOTE | 2017-05-06 07:25 | NUR ---
RN NOTES REPORT RECEIVED AT THE BEDSIDE. PATIENT IS RESTING COMFORTABLY IN BED. NO SOB OR DISTRESS NOTED AT THIS TIME. PATIENT DENIES PAIN. BED IN A LOW POSITION, CALL LIGHT WITHIN PATIENT REACH. WILL CONTINUE TO MONITOR.
[2017-05-06 08:00] VITALS: BP 156/86
[2017-05-06] MEDS: LACTOBACILLUS RHAMNOSUS GG 1 EACH CAP.SPRINK PO SCH ×2 (08:31→16:48)
[2017-05-06] MEDS: METFORMIN 500 MG TABLET PO SCH ×2 (08:31→16:48)
[2017-05-06] MEDS: LISINOPRIL (10MG) 10 MG TABLET PO SCH ×2 (08:32→16:48)
[2017-05-06] MEDS: DOCUSATE SODIUM 100 MG CAPSULE PO SCH ×2 (08:33→16:48)
[2017-05-06] MEDS: METOPROLOL TARTRATE 25 MG TABLET PO SCH (08:33)
[2017-05-06] MEDS: ASPIRIN 81 MG TAB.CHEW PO SCH (08:33)
[2017-05-06] MEDS: CLOPIDOGREL BISULFATE 75 MG TABLET PO SCH (08:33)
[2017-05-06] MEDS: DAKINS HALF STRENGTH (0.25%) 480 ML BOTTLE TOP SCH (08:34)
[2017-05-06 12:35] LABS: BASOPHILS # (AUTO) 0.1 /CMM (0.0-0.2); BASOPHILS % (AUTO) 0.4 % (0.0-2.0); EOSINOPHILS # (AUTO) 0.2 /CMM (0.0-0.7); EOSINOPHILS % (AUTO) 1.1 % (0.0-6.0); HEMATOCRIT 37 % (39-51); HEMOGLOBIN 12.1 g/dL (13.5-17.5); LYMPHOCYTES # (AUTO) 2.6 /CMM (0.8-4.8); LYMPHOCYTES % (AUTO) 15.4 % (20.0-44.0); MEAN CORPUSCULAR HEMOGLOBIN 28 PG (26.0-33.0); MEAN CORPUSCULAR HGB CONC 33 g/dl (31.0-36.0); MEAN CORPUSCULAR VOLUME 87 fL (80-96); MONOCYTES # (AUTO) 0.8 /CMM (0.1-1.30); MONOCYTES % (AUTO) 4.6 % (2.0-12.0); NEUTROPHILS # (AUTO) 13.3 /CMM (1.8-8.9); NEUTROPHILS % (AUTO) 78.5 % (43.0-81.0); PLATELET COUNT (AUTO) 586 /CMM (150-450); RDW COEFFICIENT OF VARIATION 14.5 (11.5-15.0); RED BLOOD CELL COUNT(AUTO) 4.28 MIL/uL (4.5-6.0); WHITE BLOOD COUNT (AUTO) 16.9 K/uL (4.3-11.0)
[2017-05-06 16:00] VITALS: BP 149/76
[2017-05-06 16:48] VITALS: BP 149/76
--- NOTE | 2017-05-06 17:05 | NUR ---
RN NOTES PATIENT TOOK 1700 MEDS, BUT IS REFUSING ACCUCHECK. PATIENT IS DUE FOR DISCHARGE WITHIN THE NEXT HALF HOUR AND STATES HE WILL CHECK HIS SUGAR WHEN HE GETS HOME.
--- NOTE | 2017-05-06 17:44 | NUR ---
LAUNDRY CLERK DISCHARGE INSTRUCTIONS GIVEN TO THE PATIENT AND ABLE TO UNDERSTAND. ALL PAPERWORK SIGNED AND BELONGINGS ACCOUNTED FOR. LIST OF CLINICS PROVIDED TO THE PATIENT FOR FOLLOWUP CARE. PRESCRIPTION GIVEN TO THE PATIENT WITH INSTRUCTIONS ON DOSAGES AND TIMING. PATIENT REFUSED DISCHARGE PICTURES THE DOCTOR CHANGED THE DRESSINGS THIS MORNING AND HE DOES NOT WISH THEM TO BE CHANGED AGAIN. PATIENT REFUSES FLU AND PNEUMONIA VACCINES ON DC. PATIENT LEFT IN STABLE CONDITION, VIA WHEELCHAIR, WITH VAN ATTENDANT TO ASSISTED LIVING. NO SOB OR DISTRESS NOTED AT THIS TIME. PATIENT DENIES PAIN. IV DISCONNECTED AND PRESSURE APPLIED, NO BLEEDING NOTED AT THE SITE.
== END 2017-05-06 17:40 | DRG 710 ==
LOC: ER 11:42 → EDSEX 11:42 → TELE 13:35 → MED 04-29 08:21
PROVIDERS: ADMIT Internal Medicine; ATTEND Internal Medicine
PROC: 0QBP0ZZ Excision of Left Metatarsal, Open Approach (ICD-10-PCS; principal; 2017-04-29)
DX: A41.9 Sepsis, unspecified organism (principal); I21.4 Non-ST elevation (NSTEMI) myocardial infarction; I50.31 Acute diastolic (congestive) heart failure; A48.0 Gas gangrene; I45.3 Trifascicular block; E11.42 Type 2 diabetes mellitus with diabetic polyneuropathy; M86.172 Other acute osteomyelitis, left ankle and foot; E11.69 Type 2 diabetes mellitus with other specified complication; E11.621 Type 2 diabetes mellitus with foot ulcer; E11.65 Type 2 diabetes mellitus with hyperglycemia; E66.01 Morbid (severe) obesity due to excess calories; E78.5 Hyperlipidemia, unspecified; F20.9 Schizophrenia, unspecified; I25.10 Atherosclerotic heart disease of native coronary artery without angina pectoris; Z91.19 Patient's noncompliance with other medical treatment and regimen; L97.529 Non-pressure chronic ulcer of other part of left foot with unspecified severity; Z68.33 Body mass index [BMI] 33.0-33.9, adult; M89.772 Major osseous defect, left ankle and foot; I11.0 Hypertensive heart disease with heart failure; Z79.84 Long term (current) use of oral hypoglycemic drugs
CPT/HCPCS: 36415; 71010-TC; 73630-TC; 73718-TC; 80048-TC; 80053-TC; 80061-TC; 80076-TC; 80202-TC; 82962-TC; 83605-TC; 83735-TC; 84100-TC; 84484-TC; 85025-TC; 85730-TC; 87040-TC; 87070-TC; 87081-TC; 87186-TC; 93307-TC; A4217; A4606; A6253; A6402; A6403; A6407; J0290; J0696; J1650; J1815; J1940; J2543; J3370; J3490; J7030; J7050; J7060; Z7610

== ENCOUNTER 2017-07-14 17:34 | Inpatient (IN) | payer MEDICAID, OTHER ==
[~2017-07-14] VITALS: Ht 180.3 cm; Wt 112.2 kg
[~2017-07-14 17:34] MED LIST: HYDR12.5 PO; METF500T4 PO
[2017-07-14 18:12] LABS: BASOPHILS # (AUTO) 0.3 /CMM (0.0-0.2); BASOPHILS % (AUTO) 1.6 % (0.0-2.0); EOSINOPHILS # (AUTO) 0.1 /CMM (0.0-0.7); EOSINOPHILS % (AUTO) 0.7 % (0.0-6.0); HEMATOCRIT 38 % (39-51); HEMOGLOBIN 12.5 g/dL (13.5-17.5); LYMPHOCYTES # (AUTO) 2.8 /CMM (0.8-4.8); LYMPHOCYTES % (AUTO) 17.4 % (20.0-44.0); MEAN CORPUSCULAR HEMOGLOBIN 28 PG (26.0-33.0); MEAN CORPUSCULAR HGB CONC 33 g/dl (31.0-36.0); MEAN CORPUSCULAR VOLUME 84 fL (80-96); MONOCYTES # (AUTO) 0.9 /CMM (0.1-1.30); MONOCYTES % (AUTO) 5.4 % (2.0-12.0); NEUTROPHILS # (AUTO) 11.9 /CMM (1.8-8.9); NEUTROPHILS % (AUTO) 74.9 % (43.0-81.0); PLATELET COUNT (AUTO) 441 /CMM (150-450); RDW COEFFICIENT OF VARIATION 13.2 (11.5-15.0); RED BLOOD CELL COUNT(AUTO) 4.53 MIL/uL (4.5-6.0)
[2017-07-14 18:26] LABS: CALCIUM, SERUM 8.7 mg/dL (8.5-10.1); CREATININE 1.1 mg/dL (0.6-1.3); INR 1.09 (0.87-1.13); POTASSIUM 4.1 mmol/L (3.5-5.1); PROTHROMBIN TIME 11.3 SECS (9.5-12.7)
[2017-07-14] MEDS ORDERED: IV NS 0.9% 1,000 ML BAG IV ONE (18:30)
[2017-07-14] MEDS ORDERED: VANCOMYCIN 1 GM in IV D5W 250 ML IV ONE (18:30)
[2017-07-14] MEDS ORDERED: PIPERACILLIN /TAZOBACTAM 3.375 G in IV D5W 50 ML IV ONE (18:30)
[2017-07-14] MEDS ORDERED: INSULIN REGULAR, HUMAN 100 UNIT/ML 10 ML VIAL SQ ONE (18:30)
[2017-07-14 18:35] LABS: C-REACTIVE PROTEIN 8.2 mg/dL (0.0-0.9)
[2017-07-14] MEDS ORDERED: INSULIN REGULAR, HUMAN 100 UNIT/ML 10 ML VIAL ONE (18:37)
[2017-07-14 19:06] LABS: TROPONIN I 0.034 ng/mL (0.00-0.056)
[2017-07-14 20:00] VITALS: BP 156/96
[2017-07-14 20:35] VITALS: BP 156/96
[2017-07-14] MEDS ORDERED: DEXTROSE 50%-WATER 50 ML DISP.SYRIN IV PRN (21:00)
[2017-07-14] MEDS ORDERED: ACETAMINOPHEN 325 MG TABLET PO PRN (21:00)
[2017-07-14] MEDS ORDERED: ONDANSETRON HCL/PF 4 MG/2 ML VIAL IVP PRN (21:00)
[2017-07-14] MEDS ORDERED: Z GUARD REMEDY 2 OZ OINT TP PRN (21:00)
[2017-07-14] MEDS ORDERED: MAG HYDROX/AL HYDROX/SIMETH 30 ML UDC PO PRN (21:00)
[2017-07-14] MEDS ORDERED: HYDROCODONE/APAP 5/325MG 1 EACH TABLET PO PRN (21:00)
[2017-07-14] MEDS ORDERED: MAGNESIUM HYDROXIDE 30 ML UDC PO PRN (21:00)
[2017-07-14] MEDS ORDERED: FEE PK DOSING 1 MIN EA MC ONE (21:07)
[2017-07-14] MEDS: BLOOD SUGAR DIAGNOSTIC 1 EACH STRIP IN SCH (22:13)
[2017-07-14] MEDS: INSULIN REGULAR, HUMAN 100 UNIT/ML 3 ML VIAL SQ PRN (22:13)
[2017-07-14] MEDS: IV NS 0.9% 1,000 ML IV PRN (22:21)
[2017-07-14] MEDS: PIPERACILLIN /TAZOBACTAM 3.375 G in IV D5W 50 ML IV SCH (23:48)
[2017-07-15] MEDS: PIPERACILLIN /TAZOBACTAM 3.375 G in IV D5W 50 ML IV SCH ×3 (06:10→17:20)
[2017-07-15] MEDS: BLOOD SUGAR DIAGNOSTIC 1 EACH STRIP IN SCH ×4 (06:31→22:20)
[2017-07-15] MEDS: INSULIN REGULAR, HUMAN 100 UNIT/ML 3 ML VIAL SQ PRN ×3 (06:32→22:22)
[2017-07-15] MEDS ORDERED: VANCOMYCIN 1.25 GM in IV D5W 500 ML IV SCH (07:00)
[2017-07-15 07:18] LABS: BASOPHILS # (AUTO) 0.1 /CMM (0.0-0.2); BASOPHILS % (AUTO) 0.4 % (0.0-2.0); EOSINOPHILS # (AUTO) 0.3 /CMM (0.0-0.7); EOSINOPHILS % (AUTO) 2.3 % (0.0-6.0); HEMATOCRIT 34 % (39-51); HEMOGLOBIN 11.4 g/dL (13.5-17.5); LYMPHOCYTES # (AUTO) 2.8 /CMM (0.8-4.8); LYMPHOCYTES % (AUTO) 20.6 % (20.0-44.0); MEAN CORPUSCULAR HEMOGLOBIN 28 PG (26.0-33.0); MEAN CORPUSCULAR HGB CONC 33 g/dl (31.0-36.0); MEAN CORPUSCULAR VOLUME 85 fL (80-96); MONOCYTES # (AUTO) 0.9 /CMM (0.1-1.30); MONOCYTES % (AUTO) 6.6 % (2.0-12.0); NEUTROPHILS # (AUTO) 9.4 /CMM (1.8-8.9); NEUTROPHILS % (AUTO) 70.1 % (43.0-81.0); PLATELET COUNT (AUTO) 374 /CMM (150-450); RDW COEFFICIENT OF VARIATION 14.3 (11.5-15.0); RED BLOOD CELL COUNT(AUTO) 4.06 MIL/uL (4.5-6.0); WHITE BLOOD COUNT (AUTO) 13.4 K/uL (4.3-11.0)
[2017-07-15 07:47] LABS: TROPONIN I 0.044 ng/mL (0.00-0.056)
[2017-07-15 07:56] LABS: ALBUMIN 2.3 g/dL (3.4-5.0); BILIRUBIN,TOTAL 0.4 mg/dL (0.2-1.0); CALCIUM, SERUM 8.7 mg/dL (8.5-10.1); CREATININE 0.9 mg/dL (0.6-1.3); MAGNESIUM 1.8 mg/dL (1.8-2.4); PHOSPHORUS 3.2 mg/dL (2.5-4.9); POTASSIUM 3.5 mmol/L (3.5-5.1); TOTAL PROTEIN, SERUM 7.3 g/dL (6.4-8.2)
[2017-07-15 08:00] VITALS: BP_SYST 156; BP_SYST 164; BP_DIAS 96; BP_DIAS 97
[2017-07-15 08:04] LABS: THYROID STIMULATING HORMONE 2.556 uIU/mL (0.358-3.74)
[2017-07-15] MEDS: METFORMIN 500 MG TABLET PO SCH ×2 (09:56→17:17)
[2017-07-15 10:14] VITALS: BP 162/97
[2017-07-15 16:00] VITALS: BP_SYST 144; BP_SYST 167; BP_DIAS 81; BP_DIAS 97
[2017-07-15] MEDS: LACTOBACILLUS RHAMNOSUS GG 1 EACH CAP.SPRINK PO SCH (17:17)
[2017-07-15] MEDS: VANCOMYCIN 1.25 GM in IV D5W 500 ML IV SCH (18:09)
[2017-07-15 20:00] VITALS: BP_SYST 157; BP_SYST 158; BP_DIAS 88; BP_DIAS 91
[2017-07-16] MEDS: PIPERACILLIN /TAZOBACTAM 3.375 G in IV D5W 50 ML IV SCH ×5 (00:01→23:39)
[2017-07-16] MEDS: IV NS 0.9% 1,000 ML IV PRN (05:27)
[2017-07-16] MEDS: VANCOMYCIN 1.25 GM in IV D5W 500 ML IV SCH ×2 (06:06→18:20)
[2017-07-16] MEDS: BLOOD SUGAR DIAGNOSTIC 1 EACH STRIP IN SCH ×4 (06:16→21:06)
[2017-07-16] MEDS: INSULIN REGULAR, HUMAN 100 UNIT/ML 3 ML VIAL SQ PRN ×4 (06:18→21:13)
[2017-07-16 07:17] LABS: BASOPHILS # (AUTO) 0.1 /CMM (0.0-0.2); BASOPHILS % (AUTO) 0.5 % (0.0-2.0); EOSINOPHILS # (AUTO) 0.4 /CMM (0.0-0.7); EOSINOPHILS % (AUTO) 3.9 % (0.0-6.0); HEMATOCRIT 34 % (39-51); HEMOGLOBIN 11.2 g/dL (13.5-17.5); LYMPHOCYTES # (AUTO) 2.8 /CMM (0.8-4.8); LYMPHOCYTES % (AUTO) 25.4 % (20.0-44.0); MEAN CORPUSCULAR HEMOGLOBIN 28 PG (26.0-33.0); MEAN CORPUSCULAR HGB CONC 33 g/dl (31.0-36.0); MEAN CORPUSCULAR VOLUME 85 fL (80-96); MONOCYTES # (AUTO) 0.6 /CMM (0.1-1.30); MONOCYTES % (AUTO) 5.2 % (2.0-12.0); NEUTROPHILS # (AUTO) 7.1 /CMM (1.8-8.9); PLATELET COUNT (AUTO) 397 /CMM (150-450); RDW COEFFICIENT OF VARIATION 14.1 (11.5-15.0); RED BLOOD CELL COUNT(AUTO) 4.02 MIL/uL (4.5-6.0)
[2017-07-16 07:18] LABS: CALCIUM, SERUM 8.7 mg/dL (8.5-10.1); POTASSIUM 3.9 mmol/L (3.5-5.1)
[2017-07-16 07:59] VITALS: BP 158/95
[2017-07-16 08:00] VITALS: BP 117/69
[2017-07-16] MEDS: LACTOBACILLUS RHAMNOSUS GG 1 EACH CAP.SPRINK PO SCH ×2 (08:40→17:27)
[2017-07-16] MEDS: METFORMIN 500 MG TABLET PO SCH ×2 (08:40→17:27)
[2017-07-16] MEDS: DAKINS HALF STRENGTH (0.25%) 480 ML BOTTLE TOP SCH (08:41)
[2017-07-16] MEDS: HYDROCHLOROTHIAZIDE 25 MG TABLET PO SCH (10:22)
[2017-07-16 16:00] VITALS: BP 157/90
[2017-07-16 20:00] VITALS: BP 145/79
[2017-07-16] MEDS: INSULIN DETEMIR 100 UNIT/ML CARTRIDGE SQ SCH (21:14)
[2017-07-16] MEDS ORDERED: INSULIN DETEMIR 100 UNIT/ML CARTRIDGE SQ SCH (22:00)
[2017-07-17] MEDS: IV NS 0.9% 1,000 ML IV PRN ×2 (03:11→21:16)
[2017-07-17] MEDS: PIPERACILLIN /TAZOBACTAM 3.375 G in IV D5W 50 ML IV SCH ×4 (05:23→23:33)
[2017-07-17] MEDS: BLOOD SUGAR DIAGNOSTIC 1 EACH STRIP IN SCH ×4 (06:09→21:20)
[2017-07-17] MEDS: VANCOMYCIN 1.25 GM in IV D5W 500 ML IV SCH ×2 (06:09→19:43)
[2017-07-17] MEDS: INSULIN REGULAR, HUMAN 100 UNIT/ML 3 ML VIAL SQ PRN ×4 (06:44→21:26)
[2017-07-17 07:54] LABS: BASOPHILS % (AUTO) 0.3 % (0.0-2.0); EOSINOPHILS # (AUTO) 0.4 /CMM (0.0-0.7); EOSINOPHILS % (AUTO) 3.4 % (0.0-6.0); HEMATOCRIT 38 % (39-51); HEMOGLOBIN 12.4 g/dL (13.5-17.5); LYMPHOCYTES # (AUTO) 2.9 /CMM (0.8-4.8); LYMPHOCYTES % (AUTO) 25.8 % (20.0-44.0); MEAN CORPUSCULAR HEMOGLOBIN 28 PG (26.0-33.0); MEAN CORPUSCULAR HGB CONC 33 g/dl (31.0-36.0); MEAN CORPUSCULAR VOLUME 85 fL (80-96); MONOCYTES # (AUTO) 0.5 /CMM (0.1-1.30); MONOCYTES % (AUTO) 4.5 % (2.0-12.0); NEUTROPHILS # (AUTO) 7.5 /CMM (1.8-8.9); PLATELET COUNT (AUTO) 444 /CMM (150-450); RDW COEFFICIENT OF VARIATION 14.3 (11.5-15.0); WHITE BLOOD COUNT (AUTO) 11.4 K/uL (4.3-11.0)
[2017-07-17 08:00] VITALS: BP 161/98
[2017-07-17 08:22] LABS: CALCIUM, SERUM 9.3 mg/dL (8.5-10.1)
[2017-07-17] MEDS: HYDROCHLOROTHIAZIDE 25 MG TABLET PO SCH (08:44)
[2017-07-17] MEDS: LACTOBACILLUS RHAMNOSUS GG 1 EACH CAP.SPRINK PO SCH ×2 (08:44→17:26)
[2017-07-17] MEDS: METFORMIN 500 MG TABLET PO SCH ×2 (08:44→17:26)
[2017-07-17] MEDS: DAKINS HALF STRENGTH (0.25%) 480 ML BOTTLE TOP SCH (13:16)
[2017-07-17 16:00] VITALS: BP 147/96
[2017-07-17 20:00] VITALS: BP 152/96
[2017-07-17 20:11] VITALS: BP 152/96
[2017-07-17] MEDS: INSULIN DETEMIR 100 UNIT/ML CARTRIDGE SQ SCH (21:24)
[2017-07-18] MEDS: PIPERACILLIN /TAZOBACTAM 3.375 G in IV D5W 50 ML IV SCH (05:56)
[2017-07-18] MEDS: VANCOMYCIN 1.25 GM in IV D5W 500 ML IV SCH (06:50)
[2017-07-18] MEDS: BLOOD SUGAR DIAGNOSTIC 1 EACH STRIP IN SCH ×4 (06:50→21:15)
[2017-07-18] MEDS: INSULIN REGULAR, HUMAN 100 UNIT/ML 3 ML VIAL SQ PRN ×4 (06:52→21:39)
[2017-07-18 07:16] LABS: CALCIUM, SERUM 9.2 mg/dL (8.5-10.1); CREATININE 1.1 mg/dL (0.6-1.3)
[2017-07-18 08:00] VITALS: BP 176/100
[2017-07-18] MEDS: METFORMIN 500 MG TABLET PO SCH ×2 (08:10→17:34)
[2017-07-18] MEDS: LACTOBACILLUS RHAMNOSUS GG 1 EACH CAP.SPRINK PO SCH ×2 (08:11→17:34)
[2017-07-18] MEDS: HYDROCHLOROTHIAZIDE 25 MG TABLET PO SCH (08:11)
[2017-07-18] MEDS: DAKINS HALF STRENGTH (0.25%) 480 ML BOTTLE TOP SCH (08:12)
[2017-07-18] MEDS: VITAMIN E 56.7 GM JAR TP SCH (12:12)
[2017-07-18] MEDS: CEFTRIAXONE 1 G in IV D5W 50 ML IV SCH (13:00)
[2017-07-18 20:00] VITALS: BP 150/78
[2017-07-18] MEDS: IV NS 0.9% 1,000 ML IV PRN (21:16)
[2017-07-18] MEDS: INSULIN DETEMIR 100 UNIT/ML CARTRIDGE SQ SCH (21:35)
[2017-07-18] MEDS ORDERED: INSULIN REGULAR, HUMAN 100 UNIT/ML 10 ML VIAL ONE (22:51)
[2017-07-19] MEDS: BLOOD SUGAR DIAGNOSTIC 1 EACH STRIP IN SCH ×4 (06:11→21:01)
[2017-07-19] MEDS: INSULIN REGULAR, HUMAN 100 UNIT/ML 3 ML VIAL SQ PRN ×4 (06:14→21:05)
[2017-07-19 07:33] LABS: CALCIUM, SERUM 9.6 mg/dL (8.5-10.1)
[2017-07-19 08:00] VITALS: BP 153/97
[2017-07-19] MEDS: HYDROCHLOROTHIAZIDE 25 MG TABLET PO SCH (08:47)
[2017-07-19] MEDS: METFORMIN 500 MG TABLET PO SCH ×2 (08:47→16:24)
[2017-07-19] MEDS: VITAMIN E 56.7 GM JAR TP SCH (08:47)
[2017-07-19] MEDS: LACTOBACILLUS RHAMNOSUS GG 1 EACH CAP.SPRINK PO SCH ×2 (08:47→16:24)
[2017-07-19] MEDS: DAKINS HALF STRENGTH (0.25%) 480 ML BOTTLE TOP SCH (08:48)
[2017-07-19] MEDS: CEFTRIAXONE 1 G in IV D5W 50 ML IV SCH (12:27)
[2017-07-19 16:00] VITALS: BP 148/90
[2017-07-19 20:00] VITALS: BP 141/72
[2017-07-19 20:09] VITALS: BP 141/72
[2017-07-19] MEDS: INSULIN DETEMIR 100 UNIT/ML CARTRIDGE SQ SCH (21:03)
[2017-07-19] MEDS: IV NS 0.9% 1,000 ML IV PRN (21:05)
[2017-07-20] MEDS: BLOOD SUGAR DIAGNOSTIC 1 EACH STRIP IN SCH ×3 (06:35→18:06)
[2017-07-20] MEDS: INSULIN REGULAR, HUMAN 100 UNIT/ML 3 ML VIAL SQ PRN ×3 (06:36→18:08)
[2017-07-20 06:42] LABS: CALCIUM, SERUM 9.2 mg/dL (8.5-10.1); POTASSIUM 3.8 mmol/L (3.5-5.1)
[2017-07-20 08:00] VITALS: BP 166/96
[2017-07-20] MEDS: VITAMIN E 56.7 GM JAR TP SCH (09:00)
[2017-07-20] MEDS: METFORMIN 500 MG TABLET PO SCH ×2 (09:38→18:06)
[2017-07-20] MEDS: LACTOBACILLUS RHAMNOSUS GG 1 EACH CAP.SPRINK PO SCH ×2 (09:38→18:06)
[2017-07-20 09:39] VITALS: BP 166/96
[2017-07-20] MEDS: HYDROCHLOROTHIAZIDE 25 MG TABLET PO SCH (09:39)
[2017-07-20] MEDS: DAKINS HALF STRENGTH (0.25%) 480 ML BOTTLE TOP SCH (09:41)
[2017-07-20] MEDS: CEFTRIAXONE 1 G in IV D5W 50 ML IV SCH (13:55)
[2017-07-20] MEDS: IV NS 0.9% 1,000 ML IV PRN (13:56)
== END 2017-07-20 18:45 | DRG 710 ==
LOC: ER 17:40 → MED 19:07
PROVIDERS: ADMIT Nurse Practitioner Acute Care; ATTEND Nurse Practitioner Acute Care
PROC: 0QBP0ZZ Excision of Left Metatarsal, Open Approach (ICD-10-PCS; principal; 2017-07-15)
PROC: 05H633Z Insertion of Infusion Device into Left Subclavian Vein, Percutaneous Approach (ICD-10-PCS; 2017-07-20)
DX: A41.9 Sepsis, unspecified organism (principal); I11.0 Hypertensive heart disease with heart failure; E11.42 Type 2 diabetes mellitus with diabetic polyneuropathy; I50.32 Chronic diastolic (congestive) heart failure; E11.621 Type 2 diabetes mellitus with foot ulcer; E11.65 Type 2 diabetes mellitus with hyperglycemia; E11.69 Type 2 diabetes mellitus with other specified complication; D63.8 Anemia in other chronic diseases classified elsewhere; E78.5 Hyperlipidemia, unspecified; I25.10 Atherosclerotic heart disease of native coronary artery without angina pectoris; D72.829 Elevated white blood cell count, unspecified; E66.9 Obesity, unspecified; Z68.34 Body mass index [BMI] 34.0-34.9, adult; E11.51 Type 2 diabetes mellitus with diabetic peripheral angiopathy without gangrene; Z79.84 Long term (current) use of oral hypoglycemic drugs; L97.528 Non-pressure chronic ulcer of other part of left foot with other specified severity; M86.8X7 Other osteomyelitis, ankle and foot; L60.8 Other nail disorders; L60.3 Nail dystrophy; E87.1 Hypo-osmolality and hyponatremia; B96.4 Proteus (mirabilis) (morganii) as the cause of diseases classified elsewhere; B95.1 Streptococcus, group B, as the cause of diseases classified elsewhere; I25.2 Old myocardial infarction
CPT/HCPCS: 36415; 71010-TC; 73630-TC; 80048-TC; 80053-TC; 80061-TC; 80202-TC; 82962-TC; 83605-TC; 83735-TC; 84100-TC; 84443-TC; 84484-TC; 85025-TC; 85730-TC; 86140-TC; 87040-TC; 87070-TC; 87186-TC; A4217; A4606; A6402; A6403; J0696; J1815; J2543; J3370; J7030; J7060; Z7610

== ENCOUNTER 2017-07-23 13:07 | Inpatient (IN) | payer OTHER ==
[~2017-07-23] VITALS: Ht 180.3 cm; Wt 100.2 kg
[2017-07-23] MEDS ORDERED: GELATIN SPONGE,ABSORBABLE 1 EA SPONGE TP ONE (13:09)
[2017-07-23] MEDS ORDERED: THROMBIN (BOVINE) 5,000 UNITS VIAL TP ONE (13:09)
--- NOTE | 2017-07-23 13:45 | NUR ---
BIB SELF C/O BLEEDING TO R LOWER EXTREMITY WHILE SITTING ON THE PATIO, DENIES ANY INJURY, NAD NOTED, VSS, RESP EVEN AND UNLABORED, PT PUT ON MONITOR, WAITING FOR MD SOLOMON.
--- NOTE | 2017-07-23 14:16 | NUR ---
CALLED NURSING SUP REQUESTING A MS BED.
[2017-07-23] MEDS ORDERED: CEFT1VIA15 IV (14:44)
[2017-07-23] MEDS ORDERED: HYDR-552 PO (14:44)
[2017-07-23 15:01] LABS: BASOPHILS # (AUTO) 0.1 /CMM (0.0-0.2); BASOPHILS % (AUTO) 0.8 % (0.0-2.0); EOSINOPHILS # (AUTO) 0.1 /CMM (0.0-0.7); EOSINOPHILS % (AUTO) 0.7 % (0.0-6.0); HEMATOCRIT 37 % (39-51); HEMOGLOBIN 11.9 g/dL (13.5-17.5); LYMPHOCYTES # (AUTO) 2.5 /CMM (0.8-4.8); LYMPHOCYTES % (AUTO) 17.8 % (20.0-44.0); MEAN CORPUSCULAR HEMOGLOBIN 27 PG (26.0-33.0); MEAN CORPUSCULAR HGB CONC 33 g/dl (31.0-36.0); MEAN CORPUSCULAR VOLUME 85 fL (80-96); MONOCYTES # (AUTO) 0.6 /CMM (0.1-1.30); MONOCYTES % (AUTO) 4.7 % (2.0-12.0); NEUTROPHILS # (AUTO) 10.6 /CMM (1.8-8.9); PLATELET COUNT (AUTO) 420 /CMM (150-450); RDW COEFFICIENT OF VARIATION 14.6 (11.5-15.0); RED BLOOD CELL COUNT(AUTO) 4.33 MIL/uL (4.5-6.0); WHITE BLOOD COUNT (AUTO) 13.9 K/uL (4.3-11.0)
--- NOTE | 2017-07-23 15:07 | NUR ---
WOUND CULTURE SENT TO LAB
--- NOTE | 2017-07-23 15:10 | NUR ---
CALLED [employer], PREFORM MACHINE OPERATOR WAS PAGED.
[2017-07-23 15:12] LABS: CALCIUM, SERUM 9.1 mg/dL (8.5-10.1); CREATININE 1.1 mg/dL (0.6-1.3); POTASSIUM 3.9 mmol/L (3.5-5.1)
--- NOTE | 2017-07-23 15:15 | NUR ---
UPDATED BED 312-1 MS
[2017-07-23 15:17] LABS: BILIRUBIN,DIRECT 0.2 mg/dL (0.0-0.2); BILIRUBIN,TOTAL 0.5 mg/dL (0.2-1.0); TOTAL PROTEIN, SERUM 8.5 g/dL (6.4-8.2)
[2017-07-23 15:20] LABS: INR 1.03 (0.87-1.13); PROTHROMBIN TIME 10.7 SECS (9.5-12.7)
--- NOTE | 2017-07-23 15:32 | NUR ---
REPORT GIVEN TO JYOTI
[2017-07-23 16:30] VITALS: BP 170/105
--- NOTE | 2017-07-23 16:30 | NUR ---
COMMERCIAL MANAGER RECEIVED PT. IN BED, A&OX4. REPORT WAS GIVEN VIA PHONE BY BLANCA LOONEY. PT. HAS NO S/S OF ACUTE DISTRESS. PT.'S BP WAS HIGH AND MD WAS NOTIFIED. BLOOD PRESSURE MEDICATION WAS ORDERED. WILL CONTINUE TO ASSESS AND MONITOR.
[2017-07-23] MEDS ORDERED: CEFTRIAXONE SODIUM 1 GM IV SCH (17:30)
[2017-07-23] MEDS ORDERED: HYDROCODONE/APAP 5/325MG 1 EACH TABLET PO PRN ×2 (17:30)
[2017-07-23] MEDS ORDERED: ACETAMINOPHEN 325 MG TABLET PO PRN (17:30)
[2017-07-23] MEDS ORDERED: LINEZOLID RTU BAG 600 MG in PREMIX 1 EA IV SCH (17:30)
[2017-07-23] MEDS ORDERED: ONDANSETRON HCL/PF 4 MG/2 ML VIAL IVP PRN (17:30)
[2017-07-23] MEDS ORDERED: MAGNESIUM HYDROXIDE 30 ML UDC PO PRN (17:30)
[2017-07-23] MEDS ORDERED: MAG HYDROX/AL HYDROX/SIMETH 30 ML UDC PO PRN (17:30)
[2017-07-23] MEDS ORDERED: Z GUARD REMEDY 2 OZ OINT TP PRN (17:30)
[2017-07-23] MEDS: METFORMIN 500 MG TABLET PO SCH (18:09)
[2017-07-23] MEDS: IV NS 0.9% 1,000 ML IV PRN (18:13)
--- NOTE | 2017-07-23 19:00 | NUR ---
PT.'S BP WAS HIGH, MD WAS NOTIFIED, AND AN ORDER FOR BLOOD PRESSURE MEDICATION WAS GIVEN.
[2017-07-23] MEDS: CEFTRIAXONE 1 G in IV D5W 50 ML IV SCH (19:17)
[2017-07-23] MEDS: HYDROCHLOROTHIAZIDE 25 MG TABLET PO SCH (19:18)
--- NOTE | 2017-07-23 19:40 | NUR ---
MS RN OPENING NOTES RECEIVED PATIENT RESTING IN BED, A & O X 4. NO SOB,NO C/O PAIN, NO ACUTE CHANGES NOTED. HAS DRESSING TO LLE DUE TO DIABETIC FOOT ULCER. MIDLINE TO YUNIOR, INTACT PATENT, RUNNING WITH 75ML/HR. BED IN LOW LOCKED POSITION, CALL LIGHT WITHIN REACH. INFORMED PT TO CALL FOR HELP WHENEVER NEEDED, VERBALIZED UNDERSTANDING. WILL MONITOR CLOSELY.
--- NOTE | 2017-07-23 19:45 | NUR ---
RN CLOSING NOTES PT. IS IN BED AWAKE, A&OX4. BREATHING UNLABORED AND EVENLY ON ROOM AIR. NO S/S OF ACUTE DISTRESS. IV ANTIBIOTICS RUNNING AT 100 ML/HR. PICTURES WERE TAKEN OF PT.'S WOUNDS AND PLACED IN CHART. PT.'S S/P LEFT FOOT GREAT TOE DEBRIDEMENT FROM EMERGENCY DEPT. PT. DENIES PAIN. BED IS IN LOWEST AND LOCKED POSITION. 2 SIDE RAILS UP, AND INSTRUCTED PT. TO USE CALL LIGHT FOR ASSISTANCE. WILL ENDORSE REPORT TO NURSE.
[2017-07-23] MEDS ORDERED: LEVOFLOXACIN 500 MG /D5W 100ML 500 MG in PREMIX 1 EA IV SCH (20:00)
[2017-07-23 20:10] VITALS: BP 164/97
[2017-07-23 20:20] VITALS: BP 142/89
[2017-07-23] MEDS ORDERED: ZOLPIDEM TARTRATE 5 MG TABLET PO PRN (22:00)
--- NOTE | 2017-07-24 01:00 | NUR ---
MS RN NOTES PT HAS BEEN SLEEPING COMFORTABLY, NO C/O PAIN NOTED TO LOWER EXTREMITIES OR ANY OTHER PART OF THE BODY. MONITORING CLOSELY.
[2017-07-24 05:31] VITALS: BP 142/89
[2017-07-24] MEDS: IV NS 0.9% 1,000 ML IV PRN ×2 (06:14→23:55)
--- NOTE | 2017-07-24 06:42 | NUR ---
MS RN CLOSING NOTES PATIENT SLEPT INTERMITTENTLY @ NIGHT. NO C/O PAIN, NO SOB, NO ACUTE DISTRESS NOTED. AMBULATORY WITH WALKER/CANE FOR BRP. MIDLINE ACCESS TO YUNIOR RUNNING WITH NS @ 75 ML/HR, INTACT PATENT. SLIGHT BLEEDING NOTED ON LEFT FOOT DRESSING, REINFORCED THE DRESSING. HAD SNACK @ NIGHT. LEFT FOOT DEBRIDEMENT CONSENT OBTAINED & PLACED IN CHART. SAFETY MEASURES IN PLACE. BED IN LOW, LOCKED POSITION. CALL LIGHT WITHIN REACH. WILL ENDORSE TO AM RN FOR CONTINUITY OF CARE.
[2017-07-24 06:46] LABS: BASOPHILS % (AUTO) 0.4 % (0.0-2.0); EOSINOPHILS # (AUTO) 0.3 /CMM (0.0-0.7); EOSINOPHILS % (AUTO) 3.1 % (0.0-6.0); HEMATOCRIT 34 % (39-51); HEMOGLOBIN 11.1 g/dL (13.5-17.5); LYMPHOCYTES # (AUTO) 2.8 /CMM (0.8-4.8); LYMPHOCYTES % (AUTO) 26.4 % (20.0-44.0); MEAN CORPUSCULAR HEMOGLOBIN 28 PG (26.0-33.0); MEAN CORPUSCULAR HGB CONC 33 g/dl (31.0-36.0); MEAN CORPUSCULAR VOLUME 84 fL (80-96); MONOCYTES # (AUTO) 0.8 /CMM (0.1-1.30); MONOCYTES % (AUTO) 7.2 % (2.0-12.0); NEUTROPHILS # (AUTO) 6.7 /CMM (1.8-8.9); NEUTROPHILS % (AUTO) 62.9 % (43.0-81.0); PLATELET COUNT (AUTO) 374 /CMM (150-450); RDW COEFFICIENT OF VARIATION 13.9 (11.5-15.0); RED BLOOD CELL COUNT(AUTO) 4.01 MIL/uL (4.5-6.0); WHITE BLOOD COUNT (AUTO) 10.6 K/uL (4.3-11.0)
[2017-07-24 07:01] LABS: CALCIUM, SERUM 8.9 mg/dL (8.5-10.1); MAGNESIUM 1.9 mg/dL (1.8-2.4); PHOSPHORUS 2.5 mg/dL (2.5-4.9); POTASSIUM 3.7 mmol/L (3.5-5.1)
--- NOTE | 2017-07-24 07:30 | NUR ---
MS RN OPENING NOTES RECEIVED PATIENT AWAKE IN BED IN NO ACUTE SIGNS OF DISTRESS. A /O X 4. VERBALLY RESPONSIVE, NO C/O PAIN OR DISCOMFORTS AT THIS TIME. ON ROOM AIR, RESPIRATIONS EVEN AND UNLABORED. DRESSING TO LLE INTACT, DRY AND CLEAN. MIDLINE TO YUNIOR, INTACT PATENT WITH NS @75ML/HR INFUSING WELL. BED IN LOW AND LOCKED POSITION. CALL LIGHT WITHIN REACH. WILL CONTINUE TO MONITOR PT ACCORDINGLY.
[2017-07-24 08:00] VITALS: BP 149/106
[2017-07-24] MEDS: METFORMIN 500 MG TABLET PO SCH ×2 (08:19→16:45)
[2017-07-24] MEDS: DAKINS HALF STRENGTH (0.25%) 480 ML BOTTLE TOP SCH (08:22)
[2017-07-24] MEDS: HYDROCHLOROTHIAZIDE 25 MG TABLET PO SCH (08:22)
[2017-07-24] MEDS ORDERED: HYDROCHLOROTHIAZIDE 25 MG TABLET PO SCH (09:00)
[2017-07-24] MEDS ORDERED: HYDROGEN PEROXIDE 480 ML BOTTLE TP PRN (09:00)
[2017-07-24] MEDS ORDERED: DEXTROSE 50%-WATER 50 ML DISP.SYRIN IV PRN (12:00)
[2017-07-24] MEDS: INSULIN REGULAR, HUMAN 100 UNIT/ML 3 ML VIAL SQ PRN ×2 (12:21→17:34)
[2017-07-24] MEDS: BLOOD SUGAR DIAGNOSTIC 1 EACH STRIP IN SCH ×3 (12:22→21:25)
[2017-07-24 16:00] VITALS: BP 152/98
[2017-07-24] MEDS: CEFTRIAXONE 1 G in IV D5W 50 ML IV SCH (17:34)
--- NOTE | 2017-07-24 18:57 | NUR ---
MS RN CLOSING NOTES PATIENT AWAKE AND RESTING @ MODERATE HIGH BACKREST IN BED. A /O X 4, SAME ABLE TO MAKE NEEDS KNOWN. DIABETIC STATUS CLOSELY MONITORED DURING THE DAY, NO S/S OF HYPO/HYPERGLYCEMIA . ON ROOM AIR, BREATHING EVEN WITH NO SOB NOTED. MIDLINE TO YUNIOR, INTACT PATENT WITH NS @75ML/HR INFUSING WELL. DRESSING TO LLE INTACT, DRY AND CLEAN. KEPT BED IN LOW AND LOCKED POSITION. CALL LIGHT WITHIN REACH. ALL NEEDS AND CARE ATTENDED WELL. WILL ENDORSED TO MOLDER MACHINE TENDER NURSE FOR KRISTIE. .
--- NOTE | 2017-07-24 19:05 | NUR ---
MS RN OPENING NOTES: RECEIVED PT AND IS ASLEEP IN BED AT THIS TIME. PT IS EASILY AROUSABLE TO NAME AND TOUCH. PT IS A/OX4. PT HAS YUNIOR MIDLINE AND IS CURRENTLY BEING INFUSED WITH NS AT 75ML/HR. CALL LIGHT WITHIN PT'S REACH. BED KEPT IN LOW, LOCKED POSITION, AND SIDE RAILS X2 UP. NOTED DRESSINGON LLE AND IS CLEAN AND DRY. WILL CONTINUE TO MONITOR PT.
[2017-07-24 20:00] VITALS: BP 148/104
[2017-07-24] MEDS: *INSULIN REGULAR(HUMULIN R)HUM 100 UNIT/ML VIAL SQ PRN (21:29)
--- NOTE | 2017-07-24 21:30 | NUR ---
MS RN NOTES: PT DENIES ANY PAIN AT THIS TIME. INFORMED PT THAT HIS BP WAS ELEVATED BUT STILL DENIES ANY PAIN. WILL CONTINUE TO MONITOR PT.
--- NOTE | 2017-07-24 21:30 | NUR ---
MS RN NOTES: BLOOD SUGAR WAS 119. NO INSULIN COVERAGE. WILL CONTINUE TO MONITOR.
--- NOTE | 2017-07-25 05:54 | NUR ---
MS RN NOTES: PT WAS OFFERED TO HAVE HIS L FOOT WOUND TREATMENT. PT IS SAYING THAT IT IS NOT SOILED FROM THE LOOKS OF IT. NO BLEEDING NOTED THROUGH BANDAGE. PT WOULD LIKE IT TO BE DONE LATER ON DURING THE DAY.
[2017-07-25] MEDS: BLOOD SUGAR DIAGNOSTIC 1 EACH STRIP IN SCH ×4 (06:05→20:57)
[2017-07-25] MEDS: INSULIN REGULAR, HUMAN 100 UNIT/ML 3 ML VIAL SQ PRN ×3 (06:30→17:40)
--- NOTE | 2017-07-25 06:31 | NUR ---
MS RN NOTES: BLOOD SUGAR THIS AM WAS 200. 4 UNITS OF INSULIN REGULAR IS TO BE ADMINISTERED. WILL CONTINUE TO MONITOR PT.
--- NOTE | 2017-07-25 06:40 | NUR ---
MS RN CLOSING NOTES: ALL NEEDS WERE ATTENDED AND ANTICIPATED FOR. PT IS ASLEEP IN BED AT THIS TIME. PT IS A/OX4. PT IS EASILY AROUSABLE TO NAME AND TOUCH. PT HAS YUNIOR MIDLINE AND IS CURRENTLY BEING INFUSED WITH NS AT 75ML/HR. CALL LIGHT WITHIN PT'S REACH. BED KEPT IN LOW, LOCKED POSITION, AND SIDE RAILS X2 UP. NOTED DRESSING ON LLE AND IS CLEAN AND DRY. PT DOES NOT WANT IT TO BE CHANGED AT THIS TIME. WILL ENDORSE TO AM NURSE FOR KRISTIE.
--- NOTE | 2017-07-25 07:35 | NUR ---
RN OPENING NOTES RECEIVED PT. IN BED AWAKE, A&OX4. BREATHING UNLABORED, AND EVENLY ON ROOM AIR. NO S/S OF ACUTE DISTRESS. PT. DENIES PAIN. IV FLUIDS RUNNING AT 75 ML/HR. URINAL AT BEDSIDE HAS CLEAR AND YELLOW URINE WITH 480 CC OUTPUT. BED IS IN LOWEST, AND LOCKED POSITION. 2 SIDE RAILS UP, AND INSTRUCTED PT. TO USE CALL LIGHT WITHIN REACH FOR ASSISTANCE. ALL NEEDS MET. WILL CONTINUE TO ASSESS AND MONITOR.
[2017-07-25 08:00] VITALS: BP 173/106
[2017-07-25] MEDS: HYDROCHLOROTHIAZIDE 25 MG TABLET PO SCH (08:21)
[2017-07-25] MEDS: METFORMIN 500 MG TABLET PO SCH ×2 (08:21→16:57)
[2017-07-25] MEDS: DAKINS HALF STRENGTH (0.25%) 480 ML BOTTLE TOP SCH (08:22)
[2017-07-25 16:00] VITALS: BP 154/84
--- NOTE | 2017-07-25 16:29 | NUR ---
RN NOTES CHANGED LEFT FOOT WOUND DRESSING WITHOUT COMPLICATIONS PER MD WOUND CARE ORDERS. PT. TOLERATED PROCEDURE WELL.
[2017-07-25] MEDS: CEFTRIAXONE 1 G in IV D5W 50 ML IV SCH (17:18)
[2017-07-25] MEDS: IV NS 0.9% 1,000 ML IV PRN (17:18)
--- NOTE | 2017-07-25 19:38 | NUR ---
RN CLOSING NOTES PT. SITTING UP IN CHAIR, AWAKE, A&OX4. BREATHING UNLABORED, AND EVENLY ON ROOM AIR. NO S/S OF ACUTE DISTRESS. IV FLUIDS RUNNING AT 75 ML/HR. URINAL AT BEDSIDE HAS CLEAR AND YELLOW URINE WITH 400 CC OUTPUT. BED IS IN LOWEST, AND LOCKED POSITION. 2 SIDE RAILS UP, AND INSTRUCTED PT. TO USE CALL LIGHT WITHIN REACH FOR ASSISTANCE. ALL NEEDS MET. WILL ENDORSE REPORT TO NURSE.
[2017-07-25 20:00] VITALS: BP 152/88
--- NOTE | 2017-07-25 20:00 | NUR ---
ms/rn opening notes patient sitting in the chair, iv on YUNIOR patent w/ no s/s of infiltration, IV NS running at 75 ml/hr. Alert, oriented x3, able to verbalize needs, cooperative to care, denies any pain. call lights within reach, bed in lock position, provide fluids, received endoresement form am rn for scar.
[2017-07-25] MEDS: *INSULIN REGULAR(HUMULIN R)HUM 100 UNIT/ML VIAL SQ PRN (22:15)
[2017-07-26] MEDS: IV NS 0.9% 1,000 ML IV PRN (04:59)
[2017-07-26] MEDS: BLOOD SUGAR DIAGNOSTIC 1 EACH STRIP IN SCH ×4 (06:29→22:12)
[2017-07-26] MEDS: INSULIN REGULAR, HUMAN 100 UNIT/ML 3 ML VIAL SQ PRN ×2 (06:32→12:48)
--- NOTE | 2017-07-26 07:08 | NUR ---
312-1 MS/RN NOTES PATIENT ALERT, ORIENTED X3, ABLE TO VERBALIZE NEEDS, COOPERATIVE TO CARE, RESPIRATIONS EVEN AND UNLABORED, INDEPENDENT TO CARE WITH SUPERVISION, MONITORING FOR HYPO/HYPERGLYCEMIA, DENIES PAIN, IV HYDRATION AND IV SITE W/ NO S/S OF INFILTRATION IN THE YUNIOR MIDLINE. WILL ENDORSE TO AM RN FOR KRISTIE.
--- NOTE | 2017-07-26 07:35 | NUR ---
RN OPENING NOTES RECEIVED PT. SITTING UP IN CHAIR, A&OX4. BREATHING UNLABORED, AND EVENLY ON ROOM AIR. NO S/S OF ACUTE DISTRESS. PT. DENIES PAIN. IV FLUIDS RUNNING AT 75 ML/HR. URINAL AT BEDSIDE. CANE NEAR BEDSIDE. BED IS IN LOWEST, AND LOCKED POSITION. 2 SIDE RAILS UP, AND INSTRUCTED PT. TO USE CALL LIGHT WITHIN REACH FOR ASSISTANCE. ALL NEEDS MET. WILL CONTINUE TO ASSESS AND MONITOR.
[2017-07-26 08:00] VITALS: BP 163/94
[2017-07-26] MEDS: HYDROCHLOROTHIAZIDE 25 MG TABLET PO SCH (08:35)
[2017-07-26] MEDS: METFORMIN 500 MG TABLET PO SCH ×2 (08:35→16:54)
[2017-07-26] MEDS: DAKINS HALF STRENGTH (0.25%) 480 ML BOTTLE TOP SCH (08:37)
[2017-07-26 16:00] VITALS: BP 136/71
[2017-07-26] MEDS: CEFTRIAXONE 1 G in IV D5W 50 ML IV SCH (17:35)
--- NOTE | 2017-07-26 19:52 | NUR ---
RN CLOSING NOTES PT. SITTING UP IN CHAIR, A&OX4. BREATHING UNLABORED, AND EVENLY ON ROOM AIR. NO S/S OF ACUTE DISTRESS. IV FLUIDS RUNNING AT 75 ML/HR. URINAL AT BEDSIDE. CANE NEAR BEDSIDE. BED IS IN LOWEST, AND LOCKED POSITION. 2 SIDE RAILS UP, AND INSTRUCTED PT. TO USE CALL LIGHT WITHIN REACH FOR ASSISTANCE. ALL NEEDS MET. WILL ENDORSE REPORT TO NURSE.
[2017-07-26 20:00] VITALS: BP_SYST 146; BP_SYST 165; BP_DIAS 79; BP_DIAS 87
--- NOTE | 2017-07-26 21:00 | NUR ---
RN NOTES RECEIVE REPORT FROM NIGHT RN, A/O X4, IN BED RESTING COMFORTABLY PT IN STABLE CONDITION, NO S/S OF DISTRESS. SAFETY MEASURES ARE IN PLACE, CALL LIGHT IS IN REACH. WILL CONTINUE TO MONITOR.
[2017-07-26] MEDS: *INSULIN REGULAR(HUMULIN R)HUM 100 UNIT/ML VIAL SQ PRN (22:16)
[2017-07-27] MEDS: IV NS 0.9% 1,000 ML IV PRN (03:41)
[2017-07-27] MEDS: BLOOD SUGAR DIAGNOSTIC 1 EACH STRIP IN SCH ×3 (05:28→16:51)
[2017-07-27] MEDS: INSULIN REGULAR, HUMAN 100 UNIT/ML 3 ML VIAL SQ PRN ×3 (05:29→16:53)
--- NOTE | 2017-07-27 06:31 | NUR ---
MS RN CLOSING NOTES COMFORTABLY ASLEEP IN BED AND EASILY AWAKEN, TOLERATING ROOM AIR 97% RESPIRATIONS EVEN AND UNLABORED. NOT IN S/S DISTRESS. KEPT CLEAN AND DRY AND COMFORTABLE, GOOD SKIN CARE PROVIDED. ALL NURSING CARE RENDERED. NEEDS ATTENDED AND ANTICIPATED, FREQUENT VISUAL CHECK DONE FOR SAFETY EVERY 2 HOURS. ON LOW BED AT ALL TIMES TO ENSURE SAFETY. SAFE HAZARD FREE ENVIRONMENT PROVIDED. CALL LIGHT WITHIN EASY TO REACH. WILL ENDORSE NEXT SHIFT CONTINUITY OF CARE. NO COMPLAINS OF PAIN
--- NOTE | 2017-07-27 07:34 | NUR ---
MS RN: OPENING NOTE RECEIVED PT A/OX4. ON MS. NO DISTRESS NOTED. NO SOB NOTED. ON ROOM AIR SATING AT 97%. AMBULATES WITH ASSISTANCE. USES URINAL. L FOOT DIABETIC WOUND DRESSING INTACT. ON CCHO DIET. YUNIOR MIDLINE RUNNING NS AT 75ML/HR. SITE CLEAR AND PATENT. DRESSING INTACT. RESTING COMFORTABLY IN BED. CALL LIGHT WITHIN REACH.
[2017-07-27 08:00] VITALS: BP 170/89
[2017-07-27] MEDS: METFORMIN 500 MG TABLET PO SCH ×2 (08:19→16:51)
[2017-07-27] MEDS: HYDROCHLOROTHIAZIDE 25 MG TABLET PO SCH (08:19)
[2017-07-27] MEDS: DAKINS HALF STRENGTH (0.25%) 480 ML BOTTLE TOP SCH (08:20)
[2017-07-27 08:58] VITALS: BP 170/84
[2017-07-27] MEDS ORDERED: LOSARTAN POTASSIUM 25 MG TABLET PO SCH (09:00)
[2017-07-27] MEDS ORDERED: AMLODIPINE BESYLATE 10 MG TABLET PO SCH (09:00)
[2017-07-27] MEDS: CEFTRIAXONE 1 G in IV D5W 50 ML IV SCH (17:00)
--- NOTE | 2017-07-27 18:56 | NUR ---
MS RN: DISCHARGE NOTE PT TOOK ALL MEDICATIONS ON TIME. NO ADVERSE REACTIONS NOTED. NO PAIN NOTED. NO SOB NOTED. WOUND DRESSING CHANGED. DRESSING INTACT. L UA MIDLINE INTACT. LEAVING FACILITY TO [facility] FOR HOME HEALTH AND IV ATB INFUSION. MIDLINE PATENT. INSULIN GIVEN PER SLIDING SCALE. ALL DISCHARGE INFORMATION PROVIDED TO PT. ALL DISCHARGE INSTRUCTIONS SIGNED BY PT. ALL VALUABLES ACCOUNTED FOR. EFT FACILITY VIA TAXI.
== END 2017-07-27 18:45 | disposition home health service (06) | DRG 314 ==
LOC: ER 13:08 → MEDSG2 14:41 → MED 15:17
PROVIDERS: ADMIT Internal Medicine; ATTEND Internal Medicine
PROC: 0QBP0ZZ Excision of Left Metatarsal, Open Approach (ICD-10-PCS; principal; 2017-07-23)
DX: E11.69 Type 2 diabetes mellitus with other specified complication (principal); M86.8X7 Other osteomyelitis, ankle and foot; E11.621 Type 2 diabetes mellitus with foot ulcer; I11.0 Hypertensive heart disease with heart failure; I50.32 Chronic diastolic (congestive) heart failure; E11.42 Type 2 diabetes mellitus with diabetic polyneuropathy; E11.65 Type 2 diabetes mellitus with hyperglycemia; D63.8 Anemia in other chronic diseases classified elsewhere; I25.10 Atherosclerotic heart disease of native coronary artery without angina pectoris; L97.529 Non-pressure chronic ulcer of other part of left foot with unspecified severity; Z79.84 Long term (current) use of oral hypoglycemic drugs; I25.2 Old myocardial infarction; L60.3 Nail dystrophy; E78.5 Hyperlipidemia, unspecified; E11.51 Type 2 diabetes mellitus with diabetic peripheral angiopathy without gangrene; E66.9 Obesity, unspecified; Z68.30 Body mass index [BMI] 30.0-30.9, adult; L60.8 Other nail disorders; M84.475A Pathological fracture, left foot, initial encounter for fracture
CPT/HCPCS: 36415; 71010-TC; 73630-TC; 80048-TC; 80076-TC; 82962-TC; 83605-TC; 83735-TC; 84100-TC; 85025-TC; 85730-TC; 87040-TC; 87070-TC; 87081-TC; A4216; A4606; A6402; A6403; J0696; J1815; J1956; J2020; J7030; J7060; Z7610

== ENCOUNTER 2017-10-07 16:33 | Emergency (ER) | payer OTHER ==
[~2017-10-07] VITALS: Ht 180.3 cm; Wt 113.4 kg
[~2017-10-07 16:33] MED LIST changes: +CEFT1VIA15 IV; +HYDR-552 PO
--- NOTE | 2017-10-07 17:40 | NUR ---
PT CAME IN WITH C/O CONSTIPATION X 2 DAYS AND OPEN WOUNDS ON BLE. SEEN BY PA FOR EVAL. SAFETY AND COMFORT MEASURES PROVIDED. WILL MONITOR.
[2017-10-07] MEDS ORDERED: SORBITOL SOLUTION 30 ML ONE (17:49)
--- NOTE | 2017-10-07 17:51 | NUR ---
SCREEN ROOM OPERATOR AT FOR BLOOD DRAW.
[2017-10-07 17:58] LABS: BASOPHILS # (AUTO) 0.6 /CMM (0.0-0.2); BASOPHILS % (AUTO) 4.4 % (0.0-2.0); EOSINOPHILS # (AUTO) 0.1 /CMM (0.0-0.7); EOSINOPHILS % (AUTO) 0.7 % (0.0-6.0); HEMATOCRIT 43 % (39-51); HEMOGLOBIN 13.6 g/dL (13.5-17.5); LYMPHOCYTES # (AUTO) 1.6 /CMM (0.8-4.8); LYMPHOCYTES % (AUTO) 11.9 % (20.0-44.0); MEAN CORPUSCULAR HEMOGLOBIN 25 PG (26.0-33.0); MEAN CORPUSCULAR HGB CONC 32 g/dl (31.0-36.0); MEAN CORPUSCULAR VOLUME 78 fL (80-96); MONOCYTES % (AUTO) 7.1 % (2.0-12.0); NEUTROPHILS # (AUTO) 10.1 /CMM (1.8-8.9); NEUTROPHILS % (AUTO) 75.9 % (43.0-81.0); PLATELET COUNT (AUTO) 335 /CMM (150-450); RDW COEFFICIENT OF VARIATION 15.4 (11.5-15.0); WHITE BLOOD COUNT (AUTO) 13.4 K/uL (4.3-11.0)
[2017-10-07] MEDS ORDERED: SORBITOL SOLUTION 30 ML PO ONE (18:00)
[2017-10-07 18:13] LABS: CALCIUM, SERUM 8.4 mg/dL (8.5-10.1); CREATININE 1.4 mg/dL (0.6-1.3); POTASSIUM 4.2 mmol/L (3.5-5.1)
--- NOTE | 2017-10-07 18:25 | NUR ---
MICHELLE SALAZAR DAUGHTER JOSEF
[2017-10-07 18:29] LABS: ALBUMIN 2.3 g/dL (3.4-5.0); BILIRUBIN,TOTAL 0.4 mg/dL (0.2-1.0)
--- NOTE | 2017-10-07 18:50 | NUR ---
CREATININE 1.4, CT ABDOMEN WITH CONTRAST CANCELLED VERBALLY BY DR CAIN, RADIOLOGY AND LIN TORRES INFORMED
[2017-10-07] MEDS ORDERED: FUROSEMIDE 40 MG/4 ML VIAL ONE (18:54)
[2017-10-07] MEDS ORDERED: ASPIRIN 81 MG TAB.CHEW ONE (18:54)
[2017-10-07] MEDS ORDERED: FUROSEMIDE 40 MG/4 ML VIAL IV ONE (19:00)
[2017-10-07] MEDS ORDERED: ASPIRIN 81 MG TAB.CHEW PO ONE (19:00)
--- NOTE | 2017-10-07 19:03 | NUR ---
RECEIVED REPORT FROM BLANCA GANDHI FOR KRISTIE.
--- NOTE | 2017-10-07 19:03 | NUR ---
CALLED , TRANSFERRED CALL TO BRIAN CEBALLOS.
--- NOTE | 2017-10-07 19:15 | NUR ---
IV ACCESS STARTED. MEDICATED ORDERED.
[2017-10-07] MEDS ORDERED: LOSA25TA13 PO (19:17)
[2017-10-07] MEDS ORDERED: ATEN25TA PO (19:17)
[2017-10-07] MEDS ORDERED: SIMV20TA6 PO (19:17)
[2017-10-07] MEDS ORDERED: ASPI-1152 PO (19:17)
[2017-10-07] MEDS ORDERED: GLIM4TAB2 PO (19:20)
--- NOTE | 2017-10-07 19:38 | NUR ---
URINE COLLECTED. CALLED LAB FOR VISUAL EFFECTS EDITOR.
--- NOTE | 2017-10-07 19:55 | NUR ---
TELE 327-2 FOR NEW ONSET CHF, ADMITTING.
[2017-10-07 19:56] LABS: APPEARANCE,URINE Cloudy (CLEAR); BILIRUBIN,URINE Negative (NEGATIVE); BLOOD, URINE Moderate Ery/uL (NEGATIVE); COLOR,URINE Yellow (YELLOW); KETONES,URINE Negative (NEGATIVE); LEUKOCYTE ESTERASE ,URINE Small (NEGATIVE); NITRITE, URINE Negative (NEGATIVE); PROTEIN,URINE >=300 mg/dl (NEGATIVE); UGLUCOSE 100 MG/DL mg/dL (NEGATIVE); UROBILINOGEN,URINE 0.2 EU/dL (0.2)
--- NOTE | 2017-10-07 19:59 | NUR ---
REPORT GIVEN TO BLANCA AVILES FOR KRISTIE.
--- NOTE | 2017-10-07 19:59 | NUR ---
Salvador wilkinson in ED - 10/07/17 at 1959 by BERNABE REPORT GIVEN TO BLANCA AVILES FOR KRISTIE.
[2017-10-07 20:01] LABS: BACTERIA,URINE Few /HPF (None Seen); WBC,URINE 51-80 /HPF (0-3)
[2017-10-07 20:02] LABS: SQUAMOUS EPITHELIAL CELL,UR Few /HPF (None Seen); URINE AMORPHOUS URATE Moderate /HPF (None Seen)
[2017-10-07 20:03] LABS: MUCUS,URINE Few /LPF (None Seen)
[2017-10-07] MEDS ORDERED: CIPROFLOXACIN HCL 500 MG TABLET ONE (20:14)
[2017-10-07] MEDS ORDERED: CIPROFLOXACIN HCL 500 MG TABLET PO ONE (20:30)
--- NOTE | 2017-10-07 20:35 | NUR ---
PT TRANSFERRED PER ACLS PROTOCOL. OKAY PER PAC PRUSHA TO TRANSFER PT TO ADMITTING UNIT
--- NOTE | 2017-10-07 21:11 | NUR ---
PT TO ER BED 2. CONNECTED TO MONITOR. PENDING TRANSFER COURT WILKINSON CM.
--- NOTE | 2017-10-07 22:42 | NUR ---
TRANSFER TO [facility] 223-A [phone] ETA PENDING
--- NOTE | 2017-10-07 22:48 | NUR ---
REPORT GIVEN STEVE FROM [facility] FOR BED 223-A
--- NOTE | 2017-10-08 | NUR ---
HORSE GROOMER LIN AWARE PT WITH EPIDOSE OF BM
--- NOTE | 2017-10-08 00:11 | NUR ---
INFORMED PT CURRENTY BP. NNO AT THIS TIME.
[2017-10-08] MEDS ORDERED: ATENOLOL 50 MG TABLET PO ONE (00:30)
[2017-10-08] MEDS ORDERED: ATENOLOL 50 MG TABLET ONE (00:50)
--- NOTE | 2017-10-08 02:35 | NUR ---
ETA 4AM VIA AMBULANCE.
--- NOTE | 2017-10-08 02:46 | NUR ---
PT AWARE OF AMBULANZ CONDUCTOR SLEEPING CAR TIME. INFORMED RN FROM [facility] ETA FOR TRANSFER
[2017-10-08 03:22] VITALS: BP 153/94
--- NOTE | 2017-10-08 03:23 | NUR ---
REPORT GIVEN TO EMT FROM [facility]. EMT WITH ALL TRANSFER DOC. IV INTACT AND PATENT. NO S/S INFECTION OR INFILTRATION NOTED. PT AWARE OF TRANSFER. VSS. PT WITH ALL PERSONAL BELONGINGS. PT TO BE TRANSFERRED VIA [facility] TO [facility]. PER EMT TOOK OVER CARE.
== END 2017-10-08 03:58 | disposition other institution (70) ==
LOC: ER 16:52
DX: I11.0 Hypertensive heart disease with heart failure (principal); I50.9 Heart failure, unspecified; E11.621 Type 2 diabetes mellitus with foot ulcer; K59.00 Constipation, unspecified; N39.0 Urinary tract infection, site not specified; I87.8 Other specified disorders of veins; Z88.6 Allergy status to analgesic agent; Z79.82 Long term (current) use of aspirin; Z79.84 Long term (current) use of oral hypoglycemic drugs
CPT/HCPCS: 36415; 71045; 80053; 81001; 83690; 83880; 84484; 85025; 87040; 87081; 87086; 93005; 96374; 99285; A4606; A6402; A6403; J1940; Z7610; 81000-TC

== ENCOUNTER 2017-11-05 14:30 | Emergency (ER) | payer OTHER ==
[~2017-11-05] VITALS: Ht 180.3 cm; Wt 146.5 kg
[~2017-11-05 14:30] MED LIST changes: +ASPI-1152 PO; +ATEN25TA PO; -CEFT1VIA15 IV; +GLIM4TAB2 PO; -HYDR-552 PO; -HYDR12.5 PO; +LOSA25TA13 PO; -METF500T4 PO; +SIMV20TA6 PO
--- NOTE | 2017-11-05 14:45 | NUR ---
PT BB SELF FROM HOME C/O ABDOMINAL DISTENSION, CONSTIPATION X 2 DAYS. ABD TENDERNESS AND DISTENTION NOTED. PT STATES LAST BM IN THE MORNING WITH "VERY LITTLE CAME OUT". PT STATES HES ABLE TO URINATE, -PAIN OR BURNING SENSATION. PT DENIES PAIN. PT IS AAOX4. RESP EVEN AND UNLABORED. NO S/S OF ACUTE DISTRESS NOTED. VSS. PT SAFETY AND COMFORT MEASURES IN PLACE. PT PLACED ON MONITOR AND POX. BRIAN QUIROZ BEDSIDE FOR EVAL.
[2017-11-05 15:23] LABS: BASOPHILS # (AUTO) 0.1 /CMM (0.0-0.2); HEMOGLOBIN 13.6 g/dL (13.5-17.5); WHITE BLOOD COUNT (AUTO) 10.1 K/uL (4.3-11.0)
[2017-11-05 15:25] LABS: BASOPHILS % (AUTO) 1.3 % (0.0-2.0); EOSINOPHILS % (AUTO) 1.3 % (0.0-6.0); HEMATOCRIT 43 % (39-51); LYMPHOCYTES # (AUTO) 1.5 /CMM (0.8-4.8); LYMPHOCYTES % (AUTO) 14.8 % (20.0-44.0); MEAN CORPUSCULAR HGB CONC 31 g/dl (31.0-36.0); MEAN CORPUSCULAR VOLUME 76 fL (80-96); MONOCYTES # (AUTO) 0.7 /CMM (0.1-1.30); MONOCYTES % (AUTO) 7.2 % (2.0-12.0); NEUTROPHILS # (AUTO) 7.7 /CMM (1.8-8.9); NEUTROPHILS % (AUTO) 75.4 % (43.0-81.0); PLATELET COUNT (AUTO) 334 /CMM (150-450); RDW COEFFICIENT OF VARIATION 16.6 (11.5-15.0); RED BLOOD CELL COUNT(AUTO) 5.73 MIL/uL (4.5-6.0)
[2017-11-05 15:33] LABS: CALCIUM, SERUM 8.7 mg/dL (8.5-10.1); CREATININE 1.2 mg/dL (0.6-1.3); POTASSIUM 4.5 mmol/L (3.5-5.1)
[2017-11-05 15:36] LABS: INR 1.18 (0.85-1.15)
[2017-11-05 15:42] LABS: TROPONIN I 0.027 ng/mL (0.00-0.056)
[2017-11-05 15:50] LABS: ALBUMIN 2.4 g/dL (3.4-5.0); BILIRUBIN,DIRECT 0.3 mg/dL (0.0-0.2); BILIRUBIN,TOTAL 0.6 mg/dL (0.2-1.0); TOTAL PROTEIN, SERUM 7.4 g/dL (6.4-8.2)
--- NOTE | 2017-11-05 15:54 | NUR ---
URINAL GIVEN TO PT TO COLLECT URINE SAMPLE.
[2017-11-05 16:34] LABS: APPEARANCE,URINE Clear (CLEAR); BILIRUBIN,URINE SMALL (NEGATIVE); BLOOD, URINE Moderate Ery/uL (NEGATIVE); COLOR,URINE Yellow (YELLOW); KETONES,URINE Negative (NEGATIVE); LEUKOCYTE ESTERASE ,URINE Negative (NEGATIVE); NITRITE, URINE Negative (NEGATIVE); PH,URINE 5.5 (5.0-8.0); PROTEIN,URINE >=300 mg/dl (NEGATIVE); UGLUCOSE 100 MG/DL mg/dL (NEGATIVE); UROBILINOGEN,URINE 0.2 EU/dL (0.2)
[2017-11-05] MEDS ORDERED: ASPIRIN 81 MG TAB.CHEW ONE (16:38)
[2017-11-05] MEDS ORDERED: FUROSEMIDE 40 MG/4 ML VIAL ONE (16:38)
--- NOTE | 2017-11-05 16:46 | NUR ---
PT TO CT
--- NOTE | 2017-11-05 16:54 | NUR ---
PT BACK TO ER ROOM 2
[2017-11-05] MEDS ORDERED: FUROSEMIDE 40 MG/4 ML VIAL IV ONE (17:00)
[2017-11-05] MEDS ORDERED: ASPIRIN 81 MG TAB.CHEW PO ONE (17:00)
[2017-11-05 17:10] LABS: BACTERIA,URINE Rare /HPF (None Seen); SQUAMOUS EPITHELIAL CELL,UR Few /HPF (None Seen); WBC,URINE 0-2 /HPF (0-3)
[2017-11-05] MEDS ORDERED: METF-440 PO (17:47)
--- NOTE | 2017-11-05 18:51 | NUR ---
SPOKE WITH DIRECTOR CAREER SERVICES HAL REGARDING PT'S TRANSFER INFORMATION. [phone]
[2017-11-05] MEDS ORDERED: DOCUSATE SODIUM LIQ 100 MG/10 ML UDC NG ONE (19:30)
[2017-11-05] MEDS ORDERED: DOCUSATE SODIUM 100 MG CAPSULE PO ONE (20:12)
--- NOTE | 2017-11-05 21:12 | NUR ---
[facility] CALLED PATIENT WILL BE TRASNFERRED TO [facility]. ROOM 205-A NUMBER TO GIVE REPORT ACCEPTING DR GEN LOVE ETA [phone]
[2017-11-05] MEDS ORDERED: hydrALAZINE HCL IV 20 MG VIAL ONE (21:20)
[2017-11-05] MEDS ORDERED: hydrALAZINE HCL IV 20 MG VIAL IV ONE (21:30)
--- NOTE | 2017-11-05 21:58 | NUR ---
REPORT GIVEN TO BLANCA JON FOR KRISTIE.
[2017-11-05 23:22] VITALS: BP 160/99
--- NOTE | 2017-11-05 23:22 | NUR ---
transport bedside to take pt to [place].
--- NOTE | 2017-11-05 23:22 | NUR ---
Patient Tranfers to outside Facility Physician: DR BLEVINS Location:[facility]
== END 2017-11-05 23:40 | disposition short-term general hospital (02) ==
LOC: ER 14:33
DX: I11.0 Hypertensive heart disease with heart failure (principal); I50.9 Heart failure, unspecified; K59.00 Constipation, unspecified; R79.89 Other specified abnormal findings of blood chemistry; E11.621 Type 2 diabetes mellitus with foot ulcer; I48.91 Unspecified atrial fibrillation; K40.90 Unilateral inguinal hernia, without obstruction or gangrene, not specified as recurrent; Z79.82 Long term (current) use of aspirin; Z88.6 Allergy status to analgesic agent
CPT/HCPCS: 36415; 71045; 74176; 80048; 80076; 81001; 82962; 83690; 83880; 84484 ×2; 85025; 85730; 93005 ×2; 96374; 96375; 99285; A4606; J0360; J1940; Z7610; 81000-TC

== ENCOUNTER 2017-11-26 13:13 | Emergency (ER) | payer OTHER ==
[~2017-11-26] VITALS: Ht 180.3 cm; Wt 135.6 kg
[~2017-11-26 13:13] MED LIST changes: -GLIM4TAB2 PO; +METF-440 PO
--- NOTE | 2017-11-26 13:20 | NUR ---
[id number] FROM HOME FOR INCREASED SWELLING FROM ABD TO TESTICLES X 2 WEEKS, DENIES ANY PAIN, NAD NOTED, VSS, RESP EVEN AND UNLABORED, PT WAS PUT ON MONITOR. WAITING FOR MD CARBAJAL.
--- NOTE | 2017-11-26 14:10 | NUR ---
CALLED PHARMACY FOR CLINDAMYCIN
[2017-11-26 14:23] LABS: LYMPHOCYTES # (AUTO) 1.6 /CMM (0.8-4.8)
[2017-11-26 14:27] LABS: MEAN CORPUSCULAR VOLUME 76 fL (80-96)
[2017-11-26 14:30] LABS: BASOPHILS # (AUTO) 0.2 /CMM (0.0-0.2); BASOPHILS % (AUTO) 1.5 % (0.0-2.0); EOSINOPHILS % (AUTO) 0.7 % (0.0-6.0); HEMATOCRIT 40 % (39-51); HEMOGLOBIN 13.1 g/dL (13.5-17.5); LYMPHOCYTES % (AUTO) 15.2 % (20.0-44.0); MEAN CORPUSCULAR HGB CONC 33 g/dl (31.0-36.0); MONOCYTES # (AUTO) 0.8 /CMM (0.1-1.30); MONOCYTES % (AUTO) 7.4 % (2.0-12.0); NEUTROPHILS # (AUTO) 7.8 /CMM (1.8-8.9); NEUTROPHILS % (AUTO) 75.2 % (43.0-81.0); PLATELET COUNT (AUTO) 399 /CMM (150-450); RDW COEFFICIENT OF VARIATION 18.5 (11.5-15.0); RED BLOOD CELL COUNT(AUTO) 5.32 MIL/uL (4.5-6.0); WHITE BLOOD COUNT (AUTO) 10.5 K/uL (4.3-11.0)
[2017-11-26 14:32] LABS: CALCIUM, SERUM 8.3 mg/dL (8.5-10.1); CREATININE 1.2 mg/dL (0.6-1.3); POTASSIUM 4.2 mmol/L (3.5-5.1)
[2017-11-26 14:38] LABS: ALBUMIN 2.3 g/dL (3.4-5.0); BILIRUBIN,TOTAL 0.8 mg/dL (0.2-1.0)
[2017-11-26] MEDS: CLINDAMYCIN 600 MG in IV D5W 100 ML IV ONE (14:50)
--- NOTE | 2017-11-26 17:43 | NUR ---
WAITING FOR TRANSPORT. ETA [phone]
[2017-11-26 18:02] LABS: APPEARANCE,URINE Clear (CLEAR); BILIRUBIN,URINE Negative (NEGATIVE); BLOOD, URINE Trace-intact Ery/uL (NEGATIVE); COLOR,URINE Yellow (YELLOW); KETONES,URINE Negative (NEGATIVE); LEUKOCYTE ESTERASE ,URINE Negative (NEGATIVE); NITRITE, URINE Negative (NEGATIVE); PH,URINE 5.5 (5.0-8.0); PROTEIN,URINE 100 mg/dl (NEGATIVE); UGLUCOSE Negative (NEGATIVE); UROBILINOGEN,URINE 0.2 EU/dL (0.2)
[2017-11-26 18:07] LABS: BACTERIA,URINE Rare /HPF (None Seen); SQUAMOUS EPITHELIAL CELL,UR Few /HPF (None Seen); WBC,URINE 0-2 /HPF (0-3)
--- NOTE | 2017-11-26 18:58 | NUR ---
SNACKS GIVEN TO PT.
[2017-11-26 20:49] VITALS: BP 143/89
--- NOTE | 2017-11-26 20:49 | NUR ---
Patient discharged to home in stable condition. Written and verbal after care instructions given. Patient verbalizes understanding of instruction.
== END 2017-11-26 20:54 ==
LOC: ER 13:14
DX: N49.2 Inflammatory disorders of scrotum (principal); B35.6 Tinea cruris; E11.9 Type 2 diabetes mellitus without complications; I10 Essential (primary) hypertension; Z88.8 Allergy status to other drugs, medicaments and biological substances; Z79.82 Long term (current) use of aspirin
CPT/HCPCS: 36415; 76870-TC; 80053-TC; 81000-TC; 85025-TC; A4606; J3490; J7060; Z7610

== ENCOUNTER 2017-11-27 01:50 | Emergency (ER) | payer OTHER ==
[~2017-11-27] VITALS: Ht 177.8 cm; Wt 142.0 kg
[2017-11-27 02:00] VITALS: BP 178/94
== END 2017-11-27 03:26 | disposition home or self-care (01) ==
LOC: ER 01:51
DX: N43.3 Hydrocele, unspecified (principal); N49.2 Inflammatory disorders of scrotum; B35.6 Tinea cruris; E11.621 Type 2 diabetes mellitus with foot ulcer; I10 Essential (primary) hypertension; Z79.82 Long term (current) use of aspirin; Z88.6 Allergy status to analgesic agent
CPT/HCPCS: A4606; Z7610

== ENCOUNTER 2017-12-24 01:13 | Emergency (ER) | payer OTHER ==
[~2017-12-24] VITALS: Ht 180.3 cm; Wt 134.7 kg
--- NOTE | 2017-12-24 01:13 | NUR ---
[id number] FR ASSISTED LIVING FOR C/O LUE W/ LT PARIETAL HEAD PAIN S/P GLF. NO KO. VSS NAD A/OX4. WILL CONTINUE TO MONITOR FOR ANY CHANGES DURING THE SHIFT.
[2017-12-24] MEDS ORDERED: ONDANSETRON 4 MG TAB.RAPDIS ONE (01:40)
[2017-12-24] MEDS ORDERED: HYDROCODONE/APAP 10/325MG 1 EA TABLET ONE (01:40)
--- NOTE | 2017-12-24 01:43 | NUR ---
GRANITE SETTER AT BEDSIDE
--- NOTE | 2017-12-24 01:43 | NUR ---
BLOOD SENT TO LAB BY SURVEY ANALYST
[2017-12-24 01:58] LABS: BASOPHILS % (AUTO) 0.3 % (0.0-2.0); EOSINOPHILS % (AUTO) 1.7 % (0.0-6.0); HEMATOCRIT 41 % (39-51); HEMOGLOBIN 12.9 g/dL (13.5-17.5); LYMPHOCYTES # (AUTO) 1.1 /CMM (0.8-4.8); LYMPHOCYTES % (AUTO) 13.8 % (20.0-44.0); MEAN CORPUSCULAR HGB CONC 32 g/dl (31.0-36.0); MEAN CORPUSCULAR VOLUME 78 fL (80-96); MONOCYTES # (AUTO) 0.9 /CMM (0.1-1.30); MONOCYTES % (AUTO) 11.8 % (2.0-12.0); NEUTROPHILS # (AUTO) 5.7 /CMM (1.8-8.9); NEUTROPHILS % (AUTO) 72.4 % (43.0-81.0); PLATELET COUNT (AUTO) 338 /CMM (150-450); RED BLOOD CELL COUNT(AUTO) 5.25 MIL/uL (4.5-6.0); WHITE BLOOD COUNT (AUTO) 7.9 K/uL (4.3-11.0)
[2017-12-24] MEDS ORDERED: ONDANSETRON 4 MG TAB.RAPDIS SL ONE (02:00)
[2017-12-24] MEDS ORDERED: HYDROCODONE/APAP 10/325MG 1 EA TABLET PO ONE (02:00)
[2017-12-24 02:09] LABS: CALCIUM, SERUM 8.2 mg/dL (8.5-10.1); CREATININE 1.1 mg/dL (0.6-1.3); POTASSIUM 3.9 mmol/L (3.5-5.1)
--- NOTE | 2017-12-24 03:28 | NUR ---
REPORT GIVEN TO EMS TRANSPORT
[2017-12-24 03:37] VITALS: BP 138/86
== END 2017-12-24 03:37 ==
LOC: ER 02:41
DX: M25.512 Pain in left shoulder (principal); R19.7 Diarrhea, unspecified; E11.621 Type 2 diabetes mellitus with foot ulcer; E78.5 Hyperlipidemia, unspecified; I11.0 Hypertensive heart disease with heart failure; I50.9 Heart failure, unspecified; Z79.82 Long term (current) use of aspirin; Z88.6 Allergy status to analgesic agent
CPT/HCPCS: 36415; 73030; 80048; 85025; 99285; A4606; Q0162; Z7610

== ENCOUNTER 2021-10-25 16:47 | Inpatient (IN) | payer MEDICARE, OTHER ==
[~2021-10-25] VITALS: Ht 180.3 cm; Wt 122.9 kg
[~2021-10-25 16:47] MED LIST changes: -ASPI-1152 PO; +ASPI-1420 PO; -LOSA25TA13 PO; +LOSA25TA27 PO; +SIMV-46 PO; -SIMV20TA6 PO
[2021-10-25] MEDS ORDERED: VANCOMYCIN 1 GM in IV D5W 250 ML IV ONE (17:30)
[2021-10-25] MEDS ORDERED: PIPERACILLIN /TAZOBACTAM 3.375 G in IV D5W 50 ML IV ONE (17:30)
--- NOTE | 2021-10-25 17:30 | NUR ---
MAURO FROM [facility] FOR KAYLEIGH LE SWELLING & REDNESS. PLACED ON BED. TACHYPNEIC RR-33 ON OXYGEN SATURATING AT 99% WITH 3LIT. OXYGEN. AT BED SIDE
--- NOTE | 2021-10-25 17:45 | NUR ---
BLOOD DRAWN AND SENT TO LAB.
--- NOTE | 2021-10-25 18:01 | NUR ---
ULTRASOUND AT BEDSIDE
[2021-10-25 18:04] LABS: BASOPHILS # (AUTO) 0.3 K/uL (0.0-0.2); BASOPHILS % (AUTO) 0.8 % (0.0-2.0); EOSINOPHILS % (AUTO) 0.7 % (0.0-6.0); HEMATOCRIT 46 % (39-51); HEMOGLOBIN 14.6 g/dL (13.5-17.5); LYMPHOCYTES # (AUTO) 0.4 K/uL (0.8-4.8); MEAN CORPUSCULAR HGB CONC 32 g/dl (31.0-36.0); MEAN CORPUSCULAR VOLUME 89 fL (80-96); MONOCYTES # (AUTO) 0.3 K/uL (0.1-1.30); MONOCYTES % (AUTO) 0.7 % (2.0-12.0); NEUTROPHILS # (AUTO) 37.3 K/uL (1.8-8.9); NEUTROPHILS % (AUTO) 96.8 % (43.0-81.0); PLATELET COUNT (AUTO) 236 K/uL (150-450); RED BLOOD CELL COUNT(AUTO) 5.19 MIL/uL (4.5-6.0)
[2021-10-25 18:12] LABS: WHITE BLOOD COUNT (AUTO) 38.5 K/uL (4.3-11.0)
--- NOTE | 2021-10-25 18:20 | NUR ---
CRITICAL LAB. RESULT WBC-38.5 MD AWARE
--- NOTE | 2021-10-25 18:33 | NUR ---
X RAY AT BEDSIDE
--- NOTE | 2021-10-25 18:44 | NUR ---
RAPID COVID TEST COLLECTED AND SENT
[2021-10-25 18:53] LABS: BAND % (MANUAL) 7 % (0.0-5.0); LYMPHOCYTES % (MANUAL) 4 % (16-48); MONOCYTES % (MANUAL) 1 % (0-11.0); NEUTROPHILS % (MANUAL) 88 (42-76)
[2021-10-25] MEDS ORDERED: IV NS 0.9% 1,000 ML IV ONE (19:30)
[2021-10-25 19:52] LABS: ALANINE AMINOTRANSFERASE 18 U/L (12-78); ALKALINE PHOSPHATASE 252 U/L (46-116); ASPARTATE AMINOTRANSFERASE 17 U/L (15-37); BILIRUBIN,DIRECT 1.2 mg/dL (0.0-0.2); CALCIUM, SERUM 6.2 mg/dL (8.5-10.1); CARBON DIOXIDE 23 mmol/L (21-32); CHLORIDE 94 mmol/L (98-107); POTASSIUM 3.8 mmol/L (3.5-5.1); SODIUM SERUM 127 mmol/L (136-145); TOTAL PROTEIN, SERUM 7.8 g/dL (6.4-8.2); UREA NITROGEN, BLOOD 67 mg/dL (7-18)
[2021-10-25 20:01] LABS: GLUCOSE 559 mg/dL (74-106)
--- NOTE | 2021-10-25 20:26 | NUR ---
DR. AGUILAR OM THE PHONE WITH DR. LÓPEZ
[2021-10-25] MEDS ORDERED: INSULIN REGULAR, HUMAN 100 UNIT/ML 10 ML VIAL SQ ONE (20:30)
--- NOTE | 2021-10-25 20:43 | NUR ---
LACTIC ACID 4.7. NOTIFIED AJ DOMINGUEZ
[2021-10-25] MEDS ORDERED: IV NS 0.9% 1,000 ML IV PRN (21:00)
[2021-10-25] MEDS ORDERED: ONDANSETRON HCL/PF 4 MG/2 ML VIAL IVP PRN (21:00)
[2021-10-25] MEDS ORDERED: DEXTROSE 50%-WATER 50 ML DISP.SYRIN IV PRN (21:00)
--- NOTE | 2021-10-25 21:02 | NUR ---
PT REFUSED INSULIN. DR LÓPEZ AWARE
--- NOTE | 2021-10-25 21:31 | NUR ---
MRSA SWAB COLLECTED, SENT TO LAB
[2021-10-25] MEDS: BLOOD SUGAR DIAGNOSTIC 1 EACH STRIP IN SCH (22:00)
--- NOTE | 2021-10-25 23:04 | NUR ---
ACCUCHECK RESULTED 351 MG/DL, PT REFUSED INSULIN COVERAGE. AWARE
--- NOTE | 2021-10-25 23:47 | NUR ---
ROOM 105
[2021-10-26] MEDS ORDERED: ENOXAPARIN SODIUM 60 MG/0.6 ML DISP.SYRIN SQ ONE (00:30)
[2021-10-26] MEDS ORDERED: PIPERACILLIN /TAZOBACTAM 3.375 G VIAL IV ONE ×2 (00:34→03:14)
--- NOTE | 2021-10-26 00:45 | NUR ---
REPORT GIVEN TO WILLIAM RIOS FOR KRISTIE
--- NOTE | 2021-10-26 00:50 | NUR ---
PT TRANSFERRED TO TELE 105 VIA ACLS PROTOCOL
[2021-10-26] MEDS: ZOSYN IVPB 3.375 G in IV D5W 50ml IV SCH ×4 (01:26→17:50)
[2021-10-26 02:22] VITALS: BP 129/68
[2021-10-26] MEDS: ACETAMINOPHEN 325 MG TABLET PO PRN (03:59)
[2021-10-26 04:00] VITALS: BP 116/62
--- NOTE | 2021-10-26 06:24 | NUR ---
Admitted from ED with complaints of BLE redness secondary to cellulitis, dx of NSTEMI and cellulitis, alert/oriented x4, 4LPM via NC, 97%, no complain of pain at this time. Telemetry reading, Afib, with PVCs and BBBs. Lungs are diminished, abdomen rounded and obese, non-distended. Multiple decubs, Stage 3 sacral, right thigh MASD, right heel black blister or hematoma, BLE redness, right is bigger than left. Left plantar foot diabetic wound, photos taken and in chart, wound care consult ordered. Received vancomycin in ED, given Zosyn x2 in unit. Hx of DM, elevated BG on moderate sliding scale. BG at 0600 352 mg/DL will receive insulin 20 units SQ. Per US BLE, negative DVT
[2021-10-26] MEDS: INSULIN REGULAR, HUMAN 100 UNIT/ML 3 ML VIAL SQ PRN ×4 (06:34→22:39)
[2021-10-26] MEDS: BLOOD SUGAR DIAGNOSTIC 1 EACH STRIP IN SCH ×4 (06:36→22:35)
--- NOTE | 2021-10-26 06:51 | NUR ---
RN NOTES TROPONIN TREDNING DOWN, LATEST TROPONIN HS 676, PREVIOUS TROPONIN HS 690. PATIENT ON TELEMETRY, AFIB, WITH PVCs, BBB. TEMPERATURE AT 0400 IS 100F, GIVEN TYLENOL 650 MG PO, LATEST TEMPERATURE 98.2F.
--- NOTE | 2021-10-26 07:01 | NUR ---
RN NOTES BLOOD CULTURE GRAM STAIN, GRAM (+) COCCI IN CHAINS
[2021-10-26] MEDS ORDERED: APIX2.5T PO (07:23)
[2021-10-26] MEDS ORDERED: BUME1TAB8 PO (07:23)
[2021-10-26] MEDS ORDERED: ACID1TAB12 PO (07:23)
[2021-10-26] MEDS ORDERED: VITA-354 PO (07:23)
[2021-10-26] MEDS ORDERED: SENN-175 PO (07:23)
[2021-10-26] MEDS ORDERED: ASCO500C17 PO (07:23)
[2021-10-26] MEDS ORDERED: METO25TA4 PO (07:23)
[2021-10-26] MEDS ORDERED: CLOP75TA15 PO (07:23)
[2021-10-26] MEDS ORDERED: SPIR50TA5 PO (07:23)
[2021-10-26] MEDS ORDERED: MULT-439 PO (07:23)
--- NOTE | 2021-10-26 07:28 | NUR ---
RN OPENING NOTE PATIENT AWAKE AND ALERT RESTING IN BED. PT IS A/0X4. PT SHOWS AFIB, BBB IN THE 80'S ON TELE. PT HAS L WRIST 20G PIV INTACT AND PATENT RUNNING NS @50ML/HR. PATIENT IS INCONTINENT WITH DIAPER. PT BREATHING IS EVEN AND UNLABORED ON 4LO2 VIA NC TOLERATING WELL WITH 97% O2SAT. ALL SAFETY MEASURES NOTED AND ACCOUNTED FOR. BED IN LOWEST POSITION WITH WHEELS LOCKED IN PLACE AND CALL LIGHT WITHIN REACH. WILL CONTINUE TO MONITOR.
[2021-10-26 07:55] LABS: BASOPHILS % (AUTO) 0.1 % (0.0-2.0); EOSINOPHILS % (AUTO) 1.7 % (0.0-6.0); HEMATOCRIT 42 % (39-51); HEMOGLOBIN 13.4 g/dL (13.5-17.5); LYMPHOCYTES # (AUTO) 0.3 K/uL (0.8-4.8); LYMPHOCYTES % (AUTO) 1.1 % (20.0-44.0); MEAN CORPUSCULAR HGB CONC 32 g/dl (31.0-36.0); MEAN CORPUSCULAR VOLUME 92 fL (80-96); MONOCYTES # (AUTO) 0.5 K/uL (0.1-1.30); MONOCYTES % (AUTO) 1.5 % (2.0-12.0); NEUTROPHILS # (AUTO) 29.6 K/uL (1.8-8.9); NEUTROPHILS % (AUTO) 95.6 % (43.0-81.0); PLATELET COUNT (AUTO) 178 K/uL (150-450); RED BLOOD CELL COUNT(AUTO) 4.62 MIL/uL (4.5-6.0)
[2021-10-26 07:59] LABS: WHITE BLOOD COUNT (AUTO) 30.9 K/uL (4.3-11.0)
[2021-10-26 08:00] VITALS: BP 111/60
[2021-10-26] MEDS: PANTOPRAZOLE 40 MG TABLET.DR PO SCH (09:10)
[2021-10-26] MEDS: ENOXAPARIN SODIUM 120 MG/0.8 ML DISP.SYRIN SQ SCH ×2 (09:14→21:21)
[2021-10-26 12:00] VITALS: BP 93/54
[2021-10-26 12:06] LABS: CALCIUM, SERUM 7.4 mg/dL (8.5-10.1); CARBON DIOXIDE 19 mmol/L (21-32); CHLORIDE 88 mmol/L (98-107); CREATININE 2.1 mg/dL (0.6-1.3); MAGNESIUM 1.8 mg/dL (1.8-2.4); PHOSPHORUS 2.5 mg/dL (2.5-4.9); POTASSIUM 3.2 mmol/L (3.5-5.1); SODIUM SERUM 129 mmol/L (136-145); UREA NITROGEN, BLOOD 56 mg/dL (7-18)
[2021-10-26 12:29] LABS: GLUCOSE 571 mg/dL (74-106)
[2021-10-26] MEDS: FUROSEMIDE 20 MG/2 ML VIAL IV SCH ×2 (12:58→17:00)
[2021-10-26] MEDS: POTASSIUM CL. PREMIX PERIPHER. 50 ML IV SCH ×3 (14:27→16:49)
[2021-10-26 16:00] VITALS: BP 110/63
[2021-10-26] MEDS: VANCOMYCIN 1.25 GM in IV D5W 250 ML IV SCH (18:33)
--- NOTE | 2021-10-26 18:39 | NUR ---
RN CLOSING NOTE PATIENT REMAINED STABLE THROUGHOUT SHIFT. PATIENT AWAKE AND ALERT RESTING IN BED. PT IS A/0X4. PT SHOWS AFIB, BBB IN THE 70'S-80'S ON TELE. PT HAS L WRIST 20G PIV INTACT AND PATENT. PATIENT IS INCONTINENT WITH DIAPER. PT BREATHING IS EVEN AND UNLABORED ON 4LO2 VIA NC TOLERATING WELL WITH 95% O2SAT. ALL SAFETY MEASURES NOTED AND ACCOUNTED FOR. BED IN LOWEST POSITION WITH WHEELS LOCKED IN PLACE AND CALL LIGHT WITHIN REACH. WILL ENDORSE TO HYDRAULIC CHAIR ASSEMBLER RN.
--- NOTE | 2021-10-26 19:10 | NUR ---
RN OPENING NOTES RECEIVED PATIENT ON BED, AWAKE, VERBALLY RESPONSIVE, A/O X 4. ON NASAL CANULA @ 4 LPM SATING AT 97%. RESPIRATORY EVEN AND UNLABORED, NO SOB NOTED. REMAIN AFEBRILE. NO S/S OF DISTRESS NOTED. NOTED WITH LEFT WRIST IV LINE #20, INTACT PATENT, FLUSHED WITH NS. NO INFILTRATION NOTED AT SITE. SAFETY MEASURE PROVIDED. BED IN LOWEST POSITION, LOCKED. BED ALARM ARMED. CONTINUE TO MONITOR.
[2021-10-26 20:00] VITALS: BP 100/51
[2021-10-26 20:19] LABS: CHOLESTEROL 76 mg/dL (<200); LDL 65 mg/dL (0-99); TRIGLYCERIDES 78 mg/dL (30-150)
[2021-10-26 20:33] LABS: HDL CHOLESTEROL < 10 mg/dL (40-60)
[2021-10-27] VITALS: BP 115/49
[2021-10-27] MEDS: ZOSYN IVPB 3.375 G in IV D5W 50ml IV SCH ×5 (00:10→23:17)
[2021-10-27] MEDS: ACETAMINOPHEN 325 MG TABLET PO PRN ×2 (01:32→20:51)
[2021-10-27 04:00] VITALS: BP 121/56
[2021-10-27 06:11] LABS: BASOPHILS % (AUTO) 0.1 % (0.0-2.0); EOSINOPHILS % (AUTO) 0.4 % (0.0-6.0); HEMATOCRIT 43 % (39-51); HEMOGLOBIN 13.8 g/dL (13.5-17.5); LYMPHOCYTES # (AUTO) 0.9 K/uL (0.8-4.8); MEAN CORPUSCULAR HGB CONC 32 g/dl (31.0-36.0); MEAN CORPUSCULAR VOLUME 90 fL (80-96); MONOCYTES # (AUTO) 0.7 K/uL (0.1-1.30); MONOCYTES % (AUTO) 2.2 % (2.0-12.0); NEUTROPHILS # (AUTO) 29.5 K/uL (1.8-8.9); NEUTROPHILS % (AUTO) 94.3 % (43.0-81.0); PLATELET COUNT (AUTO) 157 K/uL (150-450); RED BLOOD CELL COUNT(AUTO) 4.82 MIL/uL (4.5-6.0)
[2021-10-27 06:16] LABS: WHITE BLOOD COUNT (AUTO) 31.3 K/uL (4.3-11.0)
[2021-10-27 06:40] LABS: CALCIUM, SERUM 7.9 mg/dL (8.5-10.1); CREATININE 2.1 mg/dL (0.6-1.3); POTASSIUM 3.6 mmol/L (3.5-5.1)
[2021-10-27 07:07] LABS: BILIRUBIN,URINE SMALL (NEGATIVE); COLOR,URINE ORANGE (YELLOW); LEUKOCYTE ESTERASE ,URINE NEGATIVE (NEGATIVE); NITRITE, URINE NEGATIVE (NEGATIVE); PROTEIN,URINE TRACE mg/dl (NEGATIVE); UGLUCOSE NEGATIVE (NEGATIVE)
[2021-10-27 07:20] LABS: RBC,URINE 0-2 /HPF (0-2)
[2021-10-27 07:21] LABS: BACTERIA,URINE Many /HPF (None Seen); SQUAMOUS EPITHELIAL CELL,UR Few /HPF (None Seen); URINE AMORPHOUS URATE Many /HPF (None Seen)
--- NOTE | 2021-10-27 07:22 | NUR ---
RN CLOSING NOTES PATIENT REMAIN STABLE THROUGH OUT THE SHIFT. RESPIRATORY EVEN AND UNLABORED, NO SOB NOTED. REMAIN AFEBRILE. NO S/S OF DISTRESS NOTED. ALL DUE MEDS GIVEN ORDERED. SAFETY MEASURE PROVIDED. BED IN LOWEST POSITION, LOCKED. BED ALARM ARMED. ENDORSED TO NEXT SHIFT
--- NOTE | 2021-10-27 07:27 | NUR ---
RN OPENING NOTES RECEIVED PATIENT ON BED, AWAKE, VERBALLY RESPONSIVE, A/O X 4. ON NASAL CANULA @ 2 LPM SATING AT 95%. RESPIRATORY EVEN AND UNLABORED, NO SOB NOTED. REMAIN AFEBRILE. NO S/S OF DISTRESS NOTED. NOTED WITH LEFT WRIST IV LINE #20, INTACT PATENT, FLUSHED WITH NS. NO INFILTRATION NOTED AT SITE. SAFETY MEASURE PROVIDED. BED IN LOWEST POSITION, LOCKED. BED ALARM ARMED. WILL CONTINUE TO MONITOR THROUGHOUT SHIFT.
[2021-10-27] MEDS: PANTOPRAZOLE 40 MG TABLET.DR PO SCH (07:37)
[2021-10-27 08:00] VITALS: BP 99/54
[2021-10-27] MEDS: BLOOD SUGAR DIAGNOSTIC 1 EACH STRIP IN SCH ×4 (08:02→22:39)
[2021-10-27] MEDS: ENOXAPARIN SODIUM 120 MG/0.8 ML DISP.SYRIN SQ SCH ×2 (09:02→20:50)
[2021-10-27] MEDS: FUROSEMIDE 20 MG/2 ML VIAL IV SCH ×2 (09:02→16:58)
[2021-10-27 12:00] VITALS: BP 93/59
[2021-10-27] MEDS: INSULIN REGULAR, HUMAN 100 UNIT/ML 3 ML VIAL SQ PRN ×3 (12:18→23:06)
[2021-10-27 16:00] VITALS: BP 104/61
[2021-10-27] MEDS: VANCOMYCIN 1.25 GM in IV D5W 250 ML IV SCH (18:08)
--- NOTE | 2021-10-27 18:32 | NUR ---
RN CLOSING NOTES PT IS IN BED RESTING, A/O X4, ON 4L VIA NC AND SATING <95%. IV ACCES ON L WRIST 20G FLUSHING WELL AND INTACT. NO S/S OF RESP. DISTRESS OR C/O PAIN AT THIS TIME. PT TOLERATED ALL TREATMENTS AND INTERVENTIONS WELL. ALL SAFETY MEASURES IN PLACE, BED IN LOWEST LOCKED POSITION, SR UP X 2, CALL LIGHT WITHIN REACH. WILL ENDORSE TO SHIRT LINE OPERATOR NURSE FOR KRISTIE.
--- NOTE | 2021-10-27 19:40 | NUR ---
RN OPENING NOTES RECEIVED PATIENT IN BED, AWAKE, A/O X4, VERBALLY RESPONSIVE. O2 VIA N/C AT 4 LPM AND PT PT TOLERATED WELL. BREATHING EVEN AND UNLABORED. NO SOB NOTED. IV ACCESS ON LEFT WRIST #20G, INTACT AND PATENT. NO S/S OF INFILTRATIONS. NO C/O PAIN OR DISCOMFORT. NO ACUTE DISTRESS. ALL SAFETY MEASURE IN PLACE. BED IN LOWEST POSITION AND LOCKED. BED ALARM ON. SIDE RAILS UP X2, PLACE CALL LIGHT WITH IN REACH. WILL CONTINUE TO MONITOR.
[2021-10-27 20:00] VITALS: BP 129/74
--- NOTE | 2021-10-27 21:00 | NUR ---
RN NOTES: PT C/O RT SHOULDER PAIN 3/10 PAIN SCALE. TYLENOL 325 MG 2 TABS GIVEN AND PT TOLERATED WELL. WILL CONTINUE TO MONITOR
[2021-10-28] VITALS: BP 103/58
[2021-10-28 04:00] VITALS: BP 91/57
[2021-10-28] MEDS: ZOSYN IVPB 3.375 G in IV D5W 50ml IV SCH ×2 (05:17→11:19)
[2021-10-28 06:25] LABS: BASOPHILS % (AUTO) 0.1 % (0.0-2.0); EOSINOPHILS % (AUTO) 0.9 % (0.0-6.0); HEMATOCRIT 41 % (39-51); HEMOGLOBIN 13.6 g/dL (13.5-17.5); LYMPHOCYTES # (AUTO) 0.9 K/uL (0.8-4.8); LYMPHOCYTES % (AUTO) 3.2 % (20.0-44.0); MEAN CORPUSCULAR HGB CONC 33 g/dl (31.0-36.0); MEAN CORPUSCULAR VOLUME 88 fL (80-96); MONOCYTES # (AUTO) 0.7 K/uL (0.1-1.30); MONOCYTES % (AUTO) 2.3 % (2.0-12.0); NEUTROPHILS # (AUTO) 26.9 K/uL (1.8-8.9); NEUTROPHILS % (AUTO) 93.5 % (43.0-81.0); PLATELET COUNT (AUTO) 139 K/uL (150-450); RED BLOOD CELL COUNT(AUTO) 4.67 MIL/uL (4.5-6.0); WHITE BLOOD COUNT (AUTO) 28.7 K/uL (4.3-11.0)
--- NOTE | 2021-10-28 06:46 | NUR ---
RN CLOSING NOTES PATIENT IN BED, AWAKE, A/O X4, VERBALLY RESPONSIVE. O2 VIA N/C AT 4 LPM, O2 SAT 97% AND PT TOLERATED WELL. BREATHING EVEN AND UNLABORED. NO SOB NOTED. IV ACCESS ON LEFT WRIST #20G, INTACT AND PATENT. NO S/S OF INFILTRATIONS. NO C/O PAIN OR DISCOMFORT. NO ACUTE DISTRESS. ALL DUE MEDS GIVEN ORDERED. ALL SAFETY MEASURE IN PLACE. BED IN LOWEST POSITION AND LOCKED. BED ALARM ON. SIDE RAILS UP X2, PLACE CALL LIGHT WITH IN REACH. WILL ENDORSE TO MORNING SHIFT NURSE.
--- NOTE | 2021-10-28 07:20 | NUR ---
RN OPENING NOTES RECEIVED PATIENT ON BED, AWAKE, VERBALLY RESPONSIVE, A/O X 4. ON NASAL CANULA @ 4 LPM SATING AT 98%. BREATHING EVEN AND UNLABORED, NO SOB OR ANY ACUTE DISTRESS NOTED. NOTED WITH LEFT WRIST IV LINE #20, INTACT PATENT, FLUSHED WITH NS, NO INFILTRATION NOTED AT SITE. SAFETY MEASURE PROVIDED. BED IN LOWEST POSITION, LOCKED. BED ALARM ON. WILL CONTINUE TO MONITOR THROUGHOUT SHIFT.
[2021-10-28 07:29] LABS: CALCIUM, SERUM 8.1 mg/dL (8.5-10.1); MAGNESIUM 2.2 mg/dL (1.8-2.4); PHOSPHORUS 3.4 mg/dL (2.5-4.9); POTASSIUM 3.5 mmol/L (3.5-5.1)
[2021-10-28 08:00] VITALS: BP 94/54
[2021-10-28] MEDS: INSULIN REGULAR, HUMAN 100 UNIT/ML 3 ML VIAL SQ PRN ×4 (08:02→21:18)
[2021-10-28] MEDS: BLOOD SUGAR DIAGNOSTIC 1 EACH STRIP IN SCH ×4 (08:11→21:13)
[2021-10-28] MEDS: FUROSEMIDE 20 MG/2 ML VIAL IV SCH ×2 (08:34→16:12)
[2021-10-28] MEDS: PANTOPRAZOLE 40 MG TABLET.DR PO SCH (08:34)
[2021-10-28] MEDS: ENOXAPARIN SODIUM 120 MG/0.8 ML DISP.SYRIN SQ SCH ×2 (08:36→20:28)
--- NOTE | 2021-10-28 10:40 | NUR ---
WOUND CARE CONSULT: PT PRESENTS WITH MULTIPLE SKIN ISSUES INCLUDING LOWER EXTREMITY WOUNDS, RT INNER THIGH REDNESS WITH OPEN, PEELING SKIN AND SACRAL DEEP TISSUE INJURY WHICH IS IN EVOLUTION AND EXTENDS TO BILATERAL BUTTOCKS, ALL PRESENT ON ADMISSION. RECOMMENDATIONS MADE FOR SKIN PROTECTION INCLUDING BARIMAX ETS AIR BED. DISCUSSED WITH NURSING STAFF. SURGICAL CONSULT AND DPM CONSULT CALLED TO DR FOX AND DR HAMPAPUR. VERDUZCO IN AGREEMENT WITH PLAN OF CARE. Addendum: 10/28/21 at 1042 by MINA ESPINO WNDNU Amended: Links added.
[2021-10-28] MEDS ORDERED: Z GUARD REMEDY 4 OZ OINT TP PRN (11:00)
[2021-10-28] MEDS: Z GUARD REMEDY 4 OZ OINT TP SCH (11:19)
--- NOTE | 2021-10-28 11:45 | NUR ---
RN NOTE PATIENT REFUSED TO HAVE BLOOD DRAWN BY VOICE WRITING REPORTER. PATIENT VERBALLY ABUSIVE TO TECH/ STAFF. Addendum: 10/28/21 at 1708 by EMILY NOVA RN wrong patient, wrong documentation.
[2021-10-28 12:00] VITALS: BP 83/53
[2021-10-28 16:00] VITALS: BP 105/59
--- NOTE | 2021-10-28 17:08 | NUR ---
RN NOTES PATIENT WAS TRANSFERRED TO BARIATRIC SPECIAL MATTRESS WITH THE HELP FROM 2 OTHER RN AND NURSING AID STAFF. PATIENT TOLERATED TRANSFER. ALL NEEDS ATTENDED. ALL SAFETY MEASURES IN PLACE. HOB ELEVATED, BED LOCKED AND IN LOWEST POSITION WITH SIDE RAILS UP X 2, CALL LIGHT WITHIN REACH OF PATIENT.
[2021-10-28] MEDS: ACETAMINOPHEN 325 MG TABLET PO PRN (17:14)
--- NOTE | 2021-10-28 18:14 | NUR ---
RN NOTE TECH IN ROOM FOR RUE DUPLEX VENOUS STUDY PROCEDURE AT BEDSIDE.
[2021-10-28] MEDS: IV NS 0.9% 1,000 ML IV SCH (18:35)
--- NOTE | 2021-10-28 18:53 | NUR ---
RN CLOSING NOTES PATIENT REMAINS IN STABLE CONDITION THROUGHOUT SHIFT. PATIENT IN BED, AWAKE, VERBALLY RESPONSIVE, A/O X 4. ON NASAL CANULA @ 4 LPM SATING AT 98%. BREATHING EVEN AND UNLABORED, NO SOB OR ANY ACUTE DISTRESS NOTED. NOTED WITH LEFT WRIST IV LINE #20, INTACT PATENT, FLUSHED WITH NS, NO INFILTRATION NOTED AT SITE. ALL DUE MEDS GIVEN ORDERED.KEPT PATIENT CLEAN DRY AND COMFORTABLE. WOUND CARE RENDERED, TOLERATED WELL. SAFETY MEASURE PROVIDED. BED IN LOWEST POSITION, LOCKED. BED ALARM ON. WILL ENDORSE TO ONCOMING NURSE.
[2021-10-28 20:00] VITALS: BP 104/63
[2021-10-28] MEDS: VANCOMYCIN 1.25 GM in IV D5W 250 ML IV SCH (20:25)
--- NOTE | 2021-10-28 20:55 | NUR ---
in bed alert and orientated X4 good eye contact speech clear special Bareatric bed in use call light within his reach Iv infusing left wrist 02 n/c 4 liters
[2021-10-29] VITALS: BP 107/52
[2021-10-29] MEDS: ACETAMINOPHEN 325 MG TABLET PO PRN ×3 (03:49→21:02)
--- NOTE | 2021-10-29 03:57 | NUR ---
alert and orientated X4 verbalizes his needs incontinent of urine , UA needed unable to obtain Tylenol given for right arm pain duplex venous study done 10/28 Negative for DVT arm /hand swollen elevated on a pillow bath given/complete linen change/ unable to assist in his care total care needed / 4 nurses to turm and reposition. dressing right foot clean and intact ,epilex applied to the buttocks DTI
[2021-10-29 04:00] VITALS: BP 127/79
--- NOTE | 2021-10-29 04:09 | NUR ---
Cllosing Notes: alert and orientated X4 ambulates to the bathroom using his private walker steady on his legs Both legs red / blisters Hands dry peeling /psoriasis on the arms dry and scaely medicated X1 with [place] at 0100 AM for pain and effective cooperative and friendly
[2021-10-29] MEDS: IV NS 0.9% 1,000 ML IV SCH ×3 (04:55→18:30)
[2021-10-29 06:43] LABS: BASOPHILS % (AUTO) 0.1 % (0.0-2.0); HEMATOCRIT 42 % (39-51); HEMOGLOBIN 13.6 g/dL (13.5-17.5); LYMPHOCYTES # (AUTO) 0.9 K/uL (0.8-4.8); LYMPHOCYTES % (AUTO) 3.7 % (20.0-44.0); MEAN CORPUSCULAR HGB CONC 33 g/dl (31.0-36.0); MEAN CORPUSCULAR VOLUME 87 fL (80-96); MONOCYTES # (AUTO) 0.7 K/uL (0.1-1.30); MONOCYTES % (AUTO) 3.1 % (2.0-12.0); NEUTROPHILS # (AUTO) 21.4 K/uL (1.8-8.9); NEUTROPHILS % (AUTO) 92.1 % (43.0-81.0); PLATELET COUNT (AUTO) 140 K/uL (150-450); RED BLOOD CELL COUNT(AUTO) 4.75 MIL/uL (4.5-6.0); WHITE BLOOD COUNT (AUTO) 23.2 K/uL (4.3-11.0)
--- NOTE | 2021-10-29 07:34 | NUR ---
RN OPENING NOTES RECEIVED PATIENT IN BED, AWAKE, A/O X4, VERBALLY RESPONSIVE. O2 VIA N/C AT 4 LPM . BREATHING EVEN AND UNLABORED. NO SOB NOTED. IV ACCESS ON LEFT WRIST #20G, INTACT AND PATENT. NO S/S OF INFILTRATIONS. NO C/O PAIN OR DISCOMFORT. NO ACUTE DISTRESS. ALL SAFETY MEASURE IN PLACE. BED IN LOWEST POSITION AND LOCKED. BED ALARM ON. SIDE RAILS UP X2, PLACE CALL LIGHT WITH IN REACH. WILL CONTINUE TO MONITOR.
[2021-10-29] MEDS: BLOOD SUGAR DIAGNOSTIC 1 EACH STRIP IN SCH ×4 (07:53→22:49)
[2021-10-29] MEDS: PANTOPRAZOLE 40 MG TABLET.DR PO SCH (07:55)
[2021-10-29] MEDS: INSULIN REGULAR, HUMAN 100 UNIT/ML 3 ML VIAL SQ PRN ×4 (07:57→22:48)
[2021-10-29 08:00] VITALS: BP 102/62
[2021-10-29 08:44] LABS: CALCIUM, SERUM 7.8 mg/dL (8.5-10.1); CREATININE 1.6 mg/dL (0.6-1.3); POTASSIUM 3.4 mmol/L (3.5-5.1)
[2021-10-29] MEDS: ENOXAPARIN SODIUM 120 MG/0.8 ML DISP.SYRIN SQ SCH (09:19)
[2021-10-29] MEDS: FUROSEMIDE 20 MG/2 ML VIAL IV SCH ×2 (09:20→16:48)
[2021-10-29] MEDS: Z GUARD REMEDY 4 OZ OINT TP SCH (09:23)
[2021-10-29 12:00] VITALS: BP 116/67
--- NOTE | 2021-10-29 13:00 | NUR ---
legal nurse consultant notes: seen by retail loan originator DR Peace , right foot wound care done, no c/o of pain or discomfort, procedure tolerated well
--- NOTE | 2021-10-29 14:55 | NUR ---
television producer yumiko patient ask for tylenol for gen body pain prior to getting picked up for CT of head, patient went in stable condition
--- NOTE | 2021-10-29 15:00 | NUR ---
architect intern notes: pt in bed alert and orientated X4, respiration is even and unlabored, special Bareatric bed in use call light within his reach, Iv infusing left wrist, bed maintained in low and locked position, will continue to monitor
[2021-10-29 16:00] VITALS: BP 113/65
--- NOTE | 2021-10-29 18:32 | NUR ---
RN closing notes: Patient in bed awake, alert and oriented x 4,respiration is even and labored, continue oxygen via NC,left forearm saline lock intact patent, continue IVF, bed remained in low and locked position, wears diaper,both side rails up for safety, call light within reach, all needs anticipated
[2021-10-29 18:56] LABS: BAND % (MANUAL) 2 % (0.0-5.0); EOSINOPHILS % (MANUAL) 2 % (0-4); LYMPHOCYTES % (MANUAL) 6 % (16-48); MONOCYTES % (MANUAL) 4 % (0-11.0); NEUTROPHILS % (MANUAL) 86 (42-76)
--- NOTE | 2021-10-29 19:30 | NUR ---
RN OPENING NOTES RECEIVED CARE OF PATIENT FROM AM NURSE WHILE PATIENT IN BED, A/O X4, ABLE TO VERBALIZE NEEDS. PATIENT IN NO DISCOMFORT AT THIS TIME, NO PAIN EXPRESSED. PATIENT ON ROOM AIR, BREATHING EVEN AND UNLABORED, NO SOB NOTED, O2 SAT 97%. PATIENT ON TELE MONITOR SHOWING CONTROLLED AFIB, BBB, WITH HR OF 75, NO DISTRESS NOTED ON PATIENT. IV ACCESS ON LEFT WRIST #20G, INTACT AND PATENT. NO S/S OF INFILTRATIONS. ALL SAFETY MEASURE IN PLACE. BED IN LOWEST POSITION AND LOCKED. BED ALARM ON. SIDE RAILS UP X2, CALL LIGHT WITH IN REACH. WILL CONTINUE TO MONITOR.
[2021-10-29 20:00] VITALS: BP 106/50
[2021-10-29] MEDS: VANCOMYCIN 1 GM in IV D5W 250 ML IV SCH (20:24)
[2021-10-30] VITALS: BP 119/56
--- NOTE | 2021-10-30 00:33 | NUR ---
RN NOTES DR. WEST CONTACTED REGARDING PATIENT'S ORDERS FOR LASIX IV 40MG BID AND IV 0.9% NS AT 125CC/HR. PATIENT'S EDEMA IS WORSENING. DR. WEST ORDER TO HOLD IV FLUIDS UNTIL AM AND ENDORSE TO AM NURSE. WILL CONTINUE TO MONITOR PATIENT.
[2021-10-30 01:27] LABS: BILIRUBIN,URINE NEGATIVE (NEGATIVE); COLOR,URINE YELLOW (YELLOW); LEUKOCYTE ESTERASE ,URINE NEGATIVE (NEGATIVE); NITRITE, URINE NEGATIVE (NEGATIVE); PH,URINE 5.5 (5.0-8.0); PROTEIN,URINE NEGATIVE (NEGATIVE); UGLUCOSE NEGATIVE (NEGATIVE); UROBILINOGEN,URINE 0.2 EU/dL (0.2)
[2021-10-30] MEDS: MORPHINE SULFATE INJ 2 MG/ML DISP.SYRIN IV PRN ×2 (01:31→22:02)
[2021-10-30] MEDS: IV NS 0.9% 1,000 ML IV SCH ×3 (02:30→18:48)
[2021-10-30 04:00] VITALS: BP 109/67
[2021-10-30] MEDS: ACETAMINOPHEN 325 MG TABLET PO PRN ×3 (04:27→16:11)
--- NOTE | 2021-10-30 06:32 | NUR ---
RN CLOSING NOTES WILL ENDORSE CARE OF PATIENT WHILE PATIENT IN BED, SLEEPING, WAKES TO NAME. A/O X4. ALL PATIENT NEEDS MET THROUGHOUT SHIFT. NO SIGNIFICANT FINDINGS UPON ALL NURSING ASSESSMENTS. WOUND CARE DONE ORDERED. ALL DUE MEDS GIVEN. SAFETY PRECAUTIONS IMPLEMENTED PER HOSPITAL PROTOCOLS. WILL ENDORSE TO AM NURSE FOR KRISTIE.
[2021-10-30 08:00] VITALS: BP 128/61
--- NOTE | 2021-10-30 08:11 | NUR ---
RN OPENING NOTE PATIENT RECEIVED IN BED, AO X 4, ABLE TO RESPONDS PHYSICAL STIMULI. IN NO ACUTE DISTRESS NOTED. RESPIRATORY EVEN AND UNLABORED ON ROOM. SKIN IS WARM TO TOUCH, KEEP CLEAN/DRY, INTACT IV SITE. KEPT ELEVATED HOB FOR ENSURE AIRWAY AND ASPIRATION PRECAUTION, ALSO LOWEST POSITION OF THE BED, S/R UP X 3 FOR SAFETY. ALL SAFETY PRECAUTION APPLIED. CALL LIGHT WITHIN REACH, WILL CONTINUE TO MONITOR.
[2021-10-30] MEDS: Z GUARD REMEDY 4 OZ OINT TP SCH (09:14)
[2021-10-30] MEDS: PANTOPRAZOLE 40 MG TABLET.DR PO SCH (09:16)
[2021-10-30] MEDS: FUROSEMIDE 20 MG/2 ML VIAL IV SCH ×2 (09:16→16:11)
[2021-10-30] MEDS: INSULIN REGULAR, HUMAN 100 UNIT/ML 3 ML VIAL SQ PRN ×4 (09:18→22:00)
[2021-10-30] MEDS: BLOOD SUGAR DIAGNOSTIC 1 EACH STRIP IN SCH ×4 (09:31→22:02)
[2021-10-30 09:32] LABS: BASOPHILS # (AUTO) 0.2 K/uL (0.0-0.2); BASOPHILS % (AUTO) 0.6 % (0.0-2.0); EOSINOPHILS % (AUTO) 0.6 % (0.0-6.0); HEMATOCRIT 43 % (39-51); HEMOGLOBIN 13.8 g/dL (13.5-17.5); LYMPHOCYTES % (AUTO) 3.8 % (20.0-44.0); MEAN CORPUSCULAR HGB CONC 32 g/dl (31.0-36.0); MEAN CORPUSCULAR VOLUME 89 fL (80-96); MONOCYTES # (AUTO) 0.9 K/uL (0.1-1.30); MONOCYTES % (AUTO) 3.7 % (2.0-12.0); NEUTROPHILS # (AUTO) 22.8 K/uL (1.8-8.9); NEUTROPHILS % (AUTO) 91.3 % (43.0-81.0); PLATELET COUNT (AUTO) 163 K/uL (150-450); RED BLOOD CELL COUNT(AUTO) 4.84 MIL/uL (4.5-6.0)
[2021-10-30 09:45] LABS: CALCIUM, SERUM 7.9 mg/dL (8.5-10.1); CREATININE 1.2 mg/dL (0.6-1.3); POTASSIUM 3.4 mmol/L (3.5-5.1)
[2021-10-30 12:00] VITALS: BP 119/67
[2021-10-30 13:20] LABS: NEUTROPHILS % (MANUAL) 93 (42-76)
[2021-10-30 13:21] LABS: BAND % (MANUAL) 0 % (0.0-5.0); BASOPHILS % (MANUAL) 0 % (0.0-2.0); BLASTS, MANUAL % 0 % (0-0); EOSINOPHILS % (MANUAL) 0 % (0-4); LYMPHOCYTES % (MANUAL) 3 % (16-48); METAMYELOCYTES % 0 % (0-0); MONOCYTES % (MANUAL) 3 % (0-11.0); MYELOCYTES % 0 % (0-0); PROMYELOCYTES % 0 % (0-0); REACTIVE LYMPHOCYTES 1 % (0-0)
[2021-10-30 16:00] VITALS: BP 106/67
--- NOTE | 2021-10-30 18:30 | NUR ---
RN CLOSE NOTE PATIENT IN BED, IN NO ACUTE DISTRESS OBSERVED. RESPIRATION EVEN AND UNLABORED ON ROOM AIR. SKIN IS WARM TO TOUCH KEEP CLEAN//DRY, INTACT IV SITE. KEPT ELEVATED HOB FOR ENSURE AIRWAY AND ASPIRATION PRECAUTION. ALSO LOWEST POSITION OF THE BED FOR SAFETY. CALL LIGHT WITHIN REACH, WILL CONTINUE TO MONITOR.
--- NOTE | 2021-10-30 19:20 | NUR ---
RN OPENING NOTES RECEIVED CARE OF PATIENT FROM AM NURSE WHILE PATIENT IN BED, A/O X4, ABLE TO VERBALIZE NEEDS. PATIENT EXPRESSES DISCOMFORT ON RIGHT ARM AND BILATERAL EXTREMITIES, REPOSITIONED FOR COMFORT. WILL ADMINISTER MORPHINE AND TYLENOL PRN FOR PAIN MANAGEMENT. PATIENT ON ROOM AIR, BREATHING EVEN AND UNLABORED, NO SOB NOTED, O2 SAT 96%. PATIENT ON TELE MONITOR SHOWING CONTROLLED AFIB, WITH HR OF 85, NO DISTRESS NOTED ON PATIENT. IV ACCESS ON LEFT WRIST #20G, INTACT AND PATENT. NO S/S OF INFILTRATIONS. ALL SAFETY MEASURE IN PLACE. BED IN LOWEST POSITION AND LOCKED. BED ALARM ON. SIDE RAILS UP X2, CALL LIGHT WITH IN REACH. WILL CONTINUE TO MONITOR.
[2021-10-30] MEDS: VANCOMYCIN 1 GM in IV D5W 250 ML IV SCH (19:44)
[2021-10-30 20:00] VITALS: BP 120/71
[2021-10-31] VITALS: BP 107/65
[2021-10-31] MEDS: ACETAMINOPHEN 325 MG TABLET PO PRN ×3 (00:50→20:15)
[2021-10-31] MEDS: IV NS 0.9% 1,000 ML IV SCH ×2 (03:26→09:52)
[2021-10-31 04:00] VITALS: BP 110/63
[2021-10-31 06:46] LABS: CALCIUM, SERUM 7.7 mg/dL (8.5-10.1); POTASSIUM 3.3 mmol/L (3.5-5.1)
--- NOTE | 2021-10-31 07:37 | NUR ---
RN OPENING NOTE RECEIVED PATIENT IN BED, AO X 4, ABLE TO RESPONDS PHYSICAL STIMULI. IN NO ACUTE DISTRESS NOTED. RESPIRATORY EVEN AND UNLABORED ON ROOM. SKIN IS WARM TO TOUCH, KEEP CLEAN/DRY, INTACT IV SITE. KEPT ELEVATED HOB FOR ENSURE AIRWAY AND ASPIRATION PRECAUTION, ALSO LOWEST POSITION OF THE BED, S/R UP X 3 FOR SAFETY. ALL SAFETY PRECAUTION APPLIED. CALL LIGHT WITHIN REACH, WILL CONTINUE TO MONITOR.
[2021-10-31] MEDS: PANTOPRAZOLE 40 MG TABLET.DR PO SCH (07:57)
[2021-10-31] MEDS: BLOOD SUGAR DIAGNOSTIC 1 EACH STRIP IN SCH ×4 (07:57→21:28)
[2021-10-31 08:00] VITALS: BP 136/76
[2021-10-31 08:00] LABS: BASOPHILS # (AUTO) 0.1 K/uL (0.0-0.2); BASOPHILS % (AUTO) 0.2 % (0.0-2.0); EOSINOPHILS % (AUTO) 0.5 % (0.0-6.0); HEMATOCRIT 41 % (39-51); HEMOGLOBIN 13.4 g/dL (13.5-17.5); LYMPHOCYTES # (AUTO) 1.1 K/uL (0.8-4.8); MEAN CORPUSCULAR HGB CONC 33 g/dl (31.0-36.0); MEAN CORPUSCULAR VOLUME 87 fL (80-96); MONOCYTES # (AUTO) 1.1 K/uL (0.1-1.30); NEUTROPHILS # (AUTO) 24.9 K/uL (1.8-8.9); NEUTROPHILS % (AUTO) 91.3 % (43.0-81.0); PLATELET COUNT (AUTO) 178 K/uL (150-450); RED BLOOD CELL COUNT(AUTO) 4.71 MIL/uL (4.5-6.0); WHITE BLOOD COUNT (AUTO) 27.3 K/uL (4.3-11.0)
[2021-10-31] MEDS: INSULIN REGULAR, HUMAN 100 UNIT/ML 3 ML VIAL SQ PRN ×4 (08:05→21:27)
[2021-10-31] MEDS: FUROSEMIDE 20 MG/2 ML VIAL IV SCH ×2 (08:25→16:33)
[2021-10-31] MEDS: Z GUARD REMEDY 4 OZ OINT TP SCH (08:26)
[2021-10-31 12:00] VITALS: BP 123/66
[2021-10-31] MEDS ORDERED: POTASSIUM CHLORIDE 20 MEQ TAB.PRT.SR PO SCH (12:00)
[2021-10-31 13:57] LABS: LYMPHOCYTES % (MANUAL) 3 % (16-48); MONOCYTES % (MANUAL) 3 % (0-11.0); NEUTROPHILS % (MANUAL) 92 (42-76); REACTIVE LYMPHOCYTES 2 % (0-0)
[2021-10-31 16:00] VITALS: BP 117/66
--- NOTE | 2021-10-31 18:46 | NUR ---
RN closing notes: Patient in bed awake, alert and oriented x 4,respiration is even and labored O2 sat 95% on room air,left forearm saline lock intact patent, , bed remained in low and locked position, wears diaper,both side rails up for safety,wound care done as ordered, patient refused MRI to be done today, MD aware, call light within reach, all needs anticipated
--- NOTE | 2021-10-31 19:25 | NUR ---
RN OPENING NOTES RECEIVED CARE OF PATIENT FROM AM NURSE WHILE PATIENT IN BED, A/O X4, ABLE TO VERBALIZE NEEDS. PATIENT EXPRESSES DISCOMFORT ON RIGHT ARM AND BILATERAL EXTREMITIES, REPOSITIONED FOR COMFORT. INTERVENTION NOT EFFECTIVE, WILL ADMINISTER MORPHINE AND TYLENOL PRN FOR PAIN MANAGEMENT. PATIENT ON ROOM AIR, BREATHING EVEN AND UNLABORED, NO SOB NOTED, O2 SAT 97%. PATIENT ON TELE MONITOR SHOWING CONTROLLED AFIB, WITH HR OF 74, NO DISTRESS NOTED ON PATIENT. IV ACCESS ON LEFT WRIST #20G, INTACT AND PATENT. NO S/S OF INFILTRATIONS. ALL SAFETY MEASURE IN PLACE. BED IN LOWEST POSITION AND LOCKED. BED ALARM ON. SIDE RAILS UP X2, CALL LIGHT WITH IN REACH. WILL CONTINUE TO MONITOR PATIENT AND CARRY OUT ALL MD ORDERS.
[2021-10-31 20:00] VITALS: BP 129/71
[2021-10-31] MEDS: VANCOMYCIN 1 GM in IV D5W 250 ML IV SCH (20:15)
[2021-10-31] MEDS: MORPHINE SULFATE INJ 2 MG/ML DISP.SYRIN IV PRN (23:47)
[2021-11-01] VITALS: BP 105/79
[2021-11-01 04:00] VITALS: BP 122/73
[2021-11-01] MEDS: ACETAMINOPHEN 325 MG TABLET PO PRN ×2 (04:33→13:32)
--- NOTE | 2021-11-01 06:23 | NUR ---
RN CLOSING NOTES WILL ENDORSE CARE OF PATIENT WHILE PATIENT IN BED, SLEEPING, WAKES TO NAME. A/O X4. ALL PATIENT NEEDS MET THROUGHOUT SHIFT. NO SIGNIFICANT FINDINGS UPON ALL NURSING ASSESSMENTS. WOUND CARE DONE ORDERED. ALL DUE MEDS GIVEN, PAIN MANAGED THROUGHOUT SHIFT, REPOSITIONED AND OFFLOAD Q2H. SAFETY PRECAUTIONS IMPLEMENTED PER HOSPITAL PROTOCOLS. WILL ENDORSE TO AM NURSE FOR KRISTIE.
[2021-11-01 07:14] LABS: CALCIUM, SERUM 7.5 mg/dL (8.5-10.1); POTASSIUM 3.3 mmol/L (3.5-5.1)
--- NOTE | 2021-11-01 07:23 | NUR ---
RN OPENING NOTE PATIENT RECEIVED IN BED, RESTING. PATIENT ON ROOM AIR WITH NO SIGNS OF LABORED BREATHING AT THIS TIME. LEFT WRIST 20G SL IN PLACE. NO SIGNS OF ACUTE DISTRESS NOTED AT THIS TIME. BED LOCKED AND IN LOWEST POSITION, CALL LIGHT WITHIN REACH, 3 SIDE RAILS UP. WILL CONTINUE TO MONITOR.
[2021-11-01] MEDS: BLOOD SUGAR DIAGNOSTIC 1 EACH STRIP IN SCH ×4 (07:44→22:13)
[2021-11-01 08:00] VITALS: BP 126/69
[2021-11-01] MEDS ORDERED: POTASSIUM CHLORIDE 20 MEQ TAB.PRT.SR PO ONE (08:00)
[2021-11-01] MEDS: PANTOPRAZOLE 40 MG TABLET.DR PO SCH (08:07)
[2021-11-01] MEDS: FUROSEMIDE 20 MG/2 ML VIAL IV SCH ×2 (08:09→16:06)
[2021-11-01] MEDS: INSULIN REGULAR, HUMAN 100 UNIT/ML 3 ML VIAL SQ PRN ×4 (08:09→22:04)
[2021-11-01] MEDS: Z GUARD REMEDY 4 OZ OINT TP SCH (08:10)
[2021-11-01] MEDS ORDERED: POTASSIUM CHLORIDE 20 MEQ TAB.PRT.SR PO SCH (10:00)
[2021-11-01] MEDS: MORPHINE SULFATE INJ 2 MG/ML DISP.SYRIN IV PRN (11:14)
[2021-11-01 12:00] VITALS: BP 126/69
[2021-11-01] MEDS ORDERED: GADOTERATE MEGLUMINE 10 MMOL/20 ML VIAL IV ONE (15:33)
[2021-11-01 16:00] VITALS: BP 109/64
[2021-11-01 20:00] VITALS: BP 123/64
[2021-11-01] MEDS: VANCOMYCIN 0.75 GM in IV D5W 250 ML IV SCH (21:10)
[2021-11-02] VITALS: BP 142/79
[2021-11-02] MEDS: ACETAMINOPHEN 325 MG TABLET PO PRN ×3 (02:02→14:08)
[2021-11-02 04:00] VITALS: BP 142/79
--- NOTE | 2021-11-02 07:06 | NUR ---
RN notes Alert and oriented, verbally able to communicate needs. In bed resting comfortably with no distress noted. Complaining of right shoulder pain, offload with pillows. Tylenol 325 mg 2 tablets x 2. Non ambulatory. Needs attended. Kept clean and dry. Will endorse to next shift for continuity of care.
[2021-11-02 07:10] LABS: CALCIUM, SERUM 7.6 mg/dL (8.5-10.1); CREATININE 0.9 mg/dL (0.6-1.3)
--- NOTE | 2021-11-02 07:30 | NUR ---
HAIR BOILER AM NOTE RECEIVED PATIENT IN BED, AO X 4, ABLE TO MAKE NEEDS KNOWN, OBESE, ON ROOM AIR, O2 SAT AT 97%, NO DISTRESS, RESPIRATION UNLABORED, AFIB CONTROLLED HR 69 ON MONITOR, LEFT WRIST 20 G FLUSHES WELL, SITE CLEAR, BEDREST, CCHO DIET, ASSIST IN TURNING AND REPOSITIONING Q 2 HOURS, OFF LOAD, SEE NURSING FLOWSHEET FOR SKIN ISSUES, WILL PERFORM PRESCRIBED WOUND TREATMENT IN A WHILE. ON [facility] BED. ELEVATE HOB FOR ENSURE AIRWAY AND ASPIRATION PRECAUTION, ALSO LOWEST POSITION OF THE BED, S/R UP X 3 FOR SAFETY. ALL SAFETY PRECAUTION APPLIED. CALL LIGHT WITHIN REACH, WILL CONTINUE TO MONITOR.
[2021-11-02 08:00] VITALS: BP 128/63
[2021-11-02] MEDS: PANTOPRAZOLE 40 MG TABLET.DR PO SCH (08:00)
[2021-11-02] MEDS: BLOOD SUGAR DIAGNOSTIC 1 EACH STRIP IN SCH ×4 (08:01→21:10)
[2021-11-02] MEDS: DAKINS QUARTER STRENGTH (0.125%) 480 ML BOTTLE TOP SCH (08:13)
[2021-11-02] MEDS: FUROSEMIDE 20 MG/2 ML VIAL IV SCH ×2 (08:13→18:09)
[2021-11-02] MEDS: Z GUARD REMEDY 4 OZ OINT TP SCH (08:15)
[2021-11-02] MEDS: INSULIN REGULAR, HUMAN 100 UNIT/ML 3 ML VIAL SQ PRN ×4 (08:28→21:12)
--- NOTE | 2021-11-02 09:30 | NUR ---
RN NOTES DUE MEDS GIVEN
--- NOTE | 2021-11-02 11:00 | NUR ---
RN NOTES MIDLINE ON YUNIOR 18G IN PLACE. INTACT AND SITE CLEAR.
[2021-11-02 11:08] LABS: BASOPHILS # (AUTO) 0.1 K/uL (0.0-0.2); BASOPHILS % (AUTO) 0.3 % (0.0-2.0); EOSINOPHILS % (AUTO) 0.7 % (0.0-6.0); HEMATOCRIT 41 % (39-51); HEMOGLOBIN 13.2 g/dL (13.5-17.5); LYMPHOCYTES # (AUTO) 1.3 K/uL (0.8-4.8); LYMPHOCYTES % (AUTO) 6.2 % (20.0-44.0); MEAN CORPUSCULAR HGB CONC 32 g/dl (31.0-36.0); MEAN CORPUSCULAR VOLUME 89 fL (80-96); MONOCYTES # (AUTO) 1.3 K/uL (0.1-1.30); MONOCYTES % (AUTO) 6.1 % (2.0-12.0); NEUTROPHILS # (AUTO) 18.4 K/uL (1.8-8.9); NEUTROPHILS % (AUTO) 86.7 % (43.0-81.0); PLATELET COUNT (AUTO) 281 K/uL (150-450); RED BLOOD CELL COUNT(AUTO) 4.63 MIL/uL (4.5-6.0); WHITE BLOOD COUNT (AUTO) 21.2 K/uL (4.3-11.0)
[2021-11-02 12:00] VITALS: BP 136/75
[2021-11-02 16:00] VITALS: BP 120/67
--- NOTE | 2021-11-02 19:33 | NUR ---
LIAISON INSPECTION LABORATORY ASSISTANT CLOSING NOTE PATIENT IN BED, AO X 4, ABLE TO MAKE NEEDS KNOWN, OBESE, ON ROOM AIR, NO DISTRESS, RESPIRATION UNLABORED, AFIB CONTROLLED ON MONITOR, LEFT WRIST 20 G AND YUNIOR 18 G MIDLINE FLUSHES WELL, SITE CLEAR, BEDREST, CCHO DIET, ASSISTED IN TURNING AND REPOSITIONING Q 2 HOURS, OFF LOAD, SEE NURSING FLOWSHEET FOR SKIN ISSUES, PERFORMED PRESCRIBED WOUND TREATMENT IN A WHILE. ON BARIMAX BED. ELEVATE HOB FOR ENSURE AIRWAY AND ASPIRATION PRECAUTION, LOWEST POSITION OF THE BED, S/R UP X 3 FOR SAFETY. ALL SAFETY PRECAUTION APPLIED. CALL LIGHT WITHIN REACH, ALL NEEDS MET AT THIS TIME, WILL ENDORSE TO NEXT SHIFT FOR KRISTIE.
[2021-11-02 20:00] VITALS: BP 115/64
[2021-11-02] MEDS: VANCOMYCIN 0.75 GM in IV D5W 250 ML IV SCH (21:12)
[2021-11-03] VITALS: BP 128/63
[2021-11-03] MEDS: ACETAMINOPHEN 325 MG TABLET PO PRN ×4 (00:12→22:51)
[2021-11-03 05:01] VITALS: BP 118/63
[2021-11-03 07:12] LABS: BASOPHILS # (AUTO) 0.1 K/uL (0.0-0.2); BASOPHILS % (AUTO) 0.4 % (0.0-2.0); EOSINOPHILS % (AUTO) 0.8 % (0.0-6.0); HEMATOCRIT 42 % (39-51); HEMOGLOBIN 13.6 g/dL (13.5-17.5); LYMPHOCYTES # (AUTO) 1.4 K/uL (0.8-4.8); MEAN CORPUSCULAR HGB CONC 32 g/dl (31.0-36.0); MEAN CORPUSCULAR VOLUME 89 fL (80-96); MONOCYTES # (AUTO) 1.2 K/uL (0.1-1.30); MONOCYTES % (AUTO) 6.4 % (2.0-12.0); NEUTROPHILS # (AUTO) 16.5 K/uL (1.8-8.9); NEUTROPHILS % (AUTO) 85.4 % (43.0-81.0); PLATELET COUNT (AUTO) 311 K/uL (150-450); RED BLOOD CELL COUNT(AUTO) 4.74 MIL/uL (4.5-6.0); WHITE BLOOD COUNT (AUTO) 19.4 K/uL (4.3-11.0)
[2021-11-03 07:25] LABS: CALCIUM, SERUM 7.9 mg/dL (8.5-10.1); CREATININE 0.9 mg/dL (0.6-1.3); POTASSIUM 3.9 mmol/L (3.5-5.1)
--- NOTE | 2021-11-03 07:25 | NUR ---
RN OPENING NOTE PATIENT IN BED, AO X 4, ABLE TO MAKE NEEDS KNOWN, OBESE, ON ROOM AIR, NO DISTRESS, RESPIRATION UNLABORED, AFIB ON TELE MONITOR. YUNIOR 18 G MIDLINE FLUSHES WELL, SITE CLEAR, BEDREST, CCHO DIET. ON BARIMAX BED. ELEVATED HOB FOR ENSURE AIRWAY AND ASPIRATION PRECAUTION. ALL SAFETY MEASURES NOTED AND ACCOUNTED FOR. BED IN LOWEST POSITION AND WHEELS LOCKED IN PLACE. CALL LIGHT WITHIN REACH. WILL CONTINUE TO MONITOR.
[2021-11-03] MEDS: PANTOPRAZOLE 40 MG TABLET.DR PO SCH (07:56)
[2021-11-03 08:00] VITALS: BP 144/75
[2021-11-03] MEDS: BLOOD SUGAR DIAGNOSTIC 1 EACH STRIP IN SCH ×4 (08:10→22:57)
[2021-11-03] MEDS: INSULIN REGULAR, HUMAN 100 UNIT/ML 3 ML VIAL SQ PRN ×4 (08:15→22:59)
[2021-11-03] MEDS: FUROSEMIDE 20 MG/2 ML VIAL IV SCH ×2 (08:59→17:04)
[2021-11-03] MEDS: DAKINS QUARTER STRENGTH (0.125%) 480 ML BOTTLE TOP SCH (08:59)
[2021-11-03] MEDS: Z GUARD REMEDY 4 OZ OINT TP SCH (08:59)
[2021-11-03 12:00] VITALS: BP 131/69
[2021-11-03 16:00] VITALS: BP 154/70
--- NOTE | 2021-11-03 18:30 | NUR ---
RN CLOSING NOTE PT REMAINED STABLE THROUGHOUT SHIFT. PATIENT IN BED, AO X 4, ABLE TO MAKE NEEDS KNOWN, OBESE, ON ROOM AIR, NO DISTRESS, RESPIRATION UNLABORED, AFIB ON TELE MONITOR. YUNIOR 18 G MIDLINE FLUSHES WELL, SITE CLEAR, BEDREST, CCHO DIET. ON BARIMAX BED. ELEVATED HOB FOR ENSURE AIRWAY AND ASPIRATION PRECAUTION. ALL SAFETY MEASURES NOTED AND ACCOUNTED FOR. BED IN LOWEST POSITION AND WHEELS LOCKED IN PLACE. CALL LIGHT WITHIN REACH. WILL ENDORSE TO ERGONOMICS CONSULTANT RN.
--- NOTE | 2021-11-03 19:05 | NUR ---
RN OPENING NOTES RECEIVED PATIENT ON BED, AWAKE, VERBALLY RESPONSIVE, A/O X 4. ON ROOM AIR SATING AT 97%. RESPIRATORY EVEN AND UNLABORED, NO SOB NOTED. REMAIN AFEBRILE. NO S/S OF DISTRESS NOTED. NOTED WITH YUNIOR MILD LINE, INTACT PATENT, FLUSHED WITH NS. NO INFILTRATION NOTED AT SITE. SAFETY MEASURE PROVIDED. BED IN LOWEST POSITION, LOCKED. BED ALARM ARMED. CONTINUE TO MONITOR.
[2021-11-03 20:00] VITALS: BP 150/67
[2021-11-03] MEDS: VANCOMYCIN 0.75 GM in IV D5W 250 ML IV SCH (20:47)
[2021-11-04] VITALS: BP 148/76
[2021-11-04 04:00] VITALS: BP 146/78
[2021-11-04 06:49] LABS: BASOPHILS # (AUTO) 0.1 K/uL (0.0-0.2); BASOPHILS % (AUTO) 0.3 % (0.0-2.0); EOSINOPHILS % (AUTO) 0.5 % (0.0-6.0); HEMATOCRIT 37 % (39-51); LYMPHOCYTES # (AUTO) 1.2 K/uL (0.8-4.8); LYMPHOCYTES % (AUTO) 6.1 % (20.0-44.0); MEAN CORPUSCULAR HGB CONC 32 g/dl (31.0-36.0); MEAN CORPUSCULAR VOLUME 88 fL (80-96); MONOCYTES # (AUTO) 1.4 K/uL (0.1-1.30); MONOCYTES % (AUTO) 7.3 % (2.0-12.0); NEUTROPHILS # (AUTO) 16.2 K/uL (1.8-8.9); NEUTROPHILS % (AUTO) 85.8 % (43.0-81.0); PLATELET COUNT (AUTO) 243 K/uL (150-450); RED BLOOD CELL COUNT(AUTO) 4.23 MIL/uL (4.5-6.0); WHITE BLOOD COUNT (AUTO) 18.9 K/uL (4.3-11.0)
--- NOTE | 2021-11-04 07:32 | NUR ---
RN NOTES NO SIGNIFICANT CHANGES THROUGH OUT THE SHIFT. RESPIRATORY EVEN AND UNLABORED, NO SOB NOTED. REMAIN AFEBRILE. NO S/S OF DISTRESS NOTED. ALL DUE MEDS GIVEN ORDERED. SAFETY MEASURE PROVIDED. BED IN LOWEST POSITION, LOCKED. BED ALARM ARMED. ENDORSED TO NEXT SHIFT
[2021-11-04] MEDS: BLOOD SUGAR DIAGNOSTIC 1 EACH STRIP IN SCH ×4 (07:44→21:03)
[2021-11-04] MEDS: PANTOPRAZOLE 40 MG TABLET.DR PO SCH (08:13)
[2021-11-04] MEDS: INSULIN REGULAR, HUMAN 100 UNIT/ML 3 ML VIAL SQ PRN ×3 (08:14→21:37)
[2021-11-04] MEDS: DAKINS QUARTER STRENGTH (0.125%) 480 ML BOTTLE TOP SCH (08:17)
[2021-11-04] MEDS: Z GUARD REMEDY 4 OZ OINT TP SCH (08:17)
[2021-11-04] MEDS: FUROSEMIDE 20 MG/2 ML VIAL IV SCH ×2 (08:20→17:00)
[2021-11-04 08:40] LABS: CALCIUM, SERUM 7.9 mg/dL (8.5-10.1); POTASSIUM 3.9 mmol/L (3.5-5.1)
[2021-11-04 09:15] VITALS: BP 132/74
--- NOTE | 2021-11-04 09:16 | NUR ---
GOLF RANGE ATTENDANT OPENING NOTES RECEIVED PATIENT ON BED, AWAKE, VERBALLY RESPONSIVE, A/O X 4. ON ROOM AIR; NO SOB NOTED. TELE MONITOR WITH A CURRENT READING OF A-FIB 60S. AFEBRILE. NO S/SX OF DISTRESS NOTED. YUNIOR MIDLINE, INTACT, PATENT, FLUSHES WELL. NO INFILTRATION NOTED AT SITE. IVAN CATH PRESENT DRAINING CLEAR YELLOW URINE TO GRAVITY. SAFETY PRECAUTIONS IN PLACE, BED IN LOW POSITION AND LOCKED, RAILS UP X2, CALL LIGHT WITHIN REACH. WILL CONTINUE TO MONITOR PATIENT.
--- NOTE | 2021-11-04 11:25 | NUR ---
ROADS SUPERINTENDENT NOTES PATIENT COMPLAINING OF R ARM PAIN 5 OUT OF 10 REQUESTING PRN TYLENOL. PRN TYLENOL ADMINISTERED. WILL REASSESS.
[2021-11-04] MEDS: ACETAMINOPHEN 325 MG TABLET PO PRN ×2 (11:27→21:03)
[2021-11-04 13:21] VITALS: BP 126/72
[2021-11-04 16:01] VITALS: BP 106/70
--- NOTE | 2021-11-04 18:40 | NUR ---
WEDGER AND GLUER CLOSING NOTES PATIENT REMAINS IN BED, AWAKE, VERBALLY RESPONSIVE, A/O X 4. ON ROOM AIR; NO SOB NOTED. TELE MONITOR WITH A CURRENT READING OF A-FIB 60S. AFEBRILE DURING SHIFT. NO S/SX OF DISTRESS NOTED. YUNIOR MIDLINE, INTACT, PATENT, FLUSHES WELL. NO INFILTRATION NOTED AT SITE. ALL NEEDS ATTENDED DURING THE DAY. SAFETY PRECAUTIONS IN PLACE, BED IN LOW POSITION AND LOCKED, RAILS UP X2, CALL LIGHT WITHIN REACH. WILL ENDORSE TO IN STORE DEMONSTRATOR NURSE.
--- NOTE | 2021-11-04 19:30 | NUR ---
TELE/RN OPENING NOTE RECEIVED PATIENT RESTING IN BED. AWAKE, ALERT AND ORIENTED X 4. ABLE TO MAKE NEEDS KNOWN. DENIES PAIN AT THIS TIME. CONTINUES ON ROOM AIR WITH NO S/SX OF RESPIRATORY DISTRESS NOTED. IV ACCESS TO LEFT UPPER ARM MIDLINE #18G INTACT, PATENT AND SALINE LOCKED. CONTINUES ON IV ABX. CONTINUES ON TELE MONITOR WITH CURRENT READING A-FIB CONTROLLED. CALL LIGHT WITHIN REACH. ASPIRATION, FALL AND SAFETY PRECAUTIONS MAINTAINED. WILL CONTINUE TO MONITOR.
[2021-11-04 20:00] VITALS: BP 120/70
[2021-11-04] MEDS: VANCOMYCIN 0.75 GM in IV D5W 250 ML IV SCH (20:37)
[2021-11-05] VITALS: BP 137/69
[2021-11-05] MEDS: ACETAMINOPHEN 325 MG TABLET PO PRN ×2 (03:36→17:54)
[2021-11-05 04:00] VITALS: BP 137/76
[2021-11-05 06:11] LABS: CALCIUM, SERUM 8.2 mg/dL (8.5-10.1); CREATININE 0.9 mg/dL (0.6-1.3)
--- NOTE | 2021-11-05 06:30 | NUR ---
TELE/RN CLOSING NOTE PATIENT CURRENTLY SLEEPING IN BED. ALERT AND ORIENTED X 4. ABLE TO MAKE NEEDS KNOWN. DENIES PAIN AT THIS TIME. CONTINUES ON ROOM AIR WITH NO S/SX OF RESPIRATORY DISTRESS NOTED. IV ACCESS TO LEFT UPPER ARM MIDLINE #18G INTACT, PATENT AND SALINE LOCKED. CONTINUES ON IV ABX. CONTINUES ON TELE MONITOR WITH CURRENT READING A-FIB CONTROLLED. CALL LIGHT WITHIN REACH. ASPIRATION, FALL AND SAFETY PRECAUTIONS MAINTAINED. WILL ENDORSE PLAN OF CARE TO ONCOMING SHIFT.
[2021-11-05 06:42] LABS: BASOPHILS # (AUTO) 0.1 K/uL (0.0-0.2); BASOPHILS % (AUTO) 0.4 % (0.0-2.0); EOSINOPHILS % (AUTO) 0.6 % (0.0-6.0); HEMATOCRIT 40 % (39-51); HEMOGLOBIN 12.8 g/dL (13.5-17.5); LYMPHOCYTES # (AUTO) 1.1 K/uL (0.8-4.8); LYMPHOCYTES % (AUTO) 7.4 % (20.0-44.0); MEAN CORPUSCULAR HGB CONC 32 g/dl (31.0-36.0); MEAN CORPUSCULAR VOLUME 89 fL (80-96); MONOCYTES # (AUTO) 1.1 K/uL (0.1-1.30); MONOCYTES % (AUTO) 6.9 % (2.0-12.0); NEUTROPHILS # (AUTO) 13.2 K/uL (1.8-8.9); NEUTROPHILS % (AUTO) 84.7 % (43.0-81.0); PLATELET COUNT (AUTO) 270 K/uL (150-450); RED BLOOD CELL COUNT(AUTO) 4.47 MIL/uL (4.5-6.0); WHITE BLOOD COUNT (AUTO) 15.6 K/uL (4.3-11.0)
--- NOTE | 2021-11-05 07:35 | NUR ---
RN OPENING NOTE PATIENT AWAKE, RESTING IN BED. ALERT AND ORIENTED X 4. ABLE TO MAKE NEEDS KNOWN. DENIES PAIN AT THIS TIME. CONTINUES ON ROOM AIR WITH NO S/SX OF RESPIRATORY DISTRESS NOTED. IV ACCESS TO LEFT UPPER ARM MIDLINE #18G INTACT, PATENT AND SALINE LOCKED. ON TELE MONITOR WITH CURRENT READING A-FIB CONTROLLED. CALL LIGHT WITHIN REACH. ASPIRATION, FALL AND SAFETY PRECAUTIONS MAINTAINED. WILL CONTINUE TO MONITOR.
[2021-11-05] MEDS: PANTOPRAZOLE 40 MG TABLET.DR PO SCH (07:39)
[2021-11-05] MEDS: BLOOD SUGAR DIAGNOSTIC 1 EACH STRIP IN SCH ×4 (07:46→22:09)
[2021-11-05] MEDS: INSULIN REGULAR, HUMAN 100 UNIT/ML 3 ML VIAL SQ PRN ×4 (07:49→22:20)
[2021-11-05 08:00] VITALS: BP 127/84
[2021-11-05] MEDS: Z GUARD REMEDY 4 OZ OINT TP SCH (08:29)
[2021-11-05] MEDS: DAKINS QUARTER STRENGTH (0.125%) 480 ML BOTTLE TOP SCH (08:30)
[2021-11-05] MEDS: FUROSEMIDE 20 MG/2 ML VIAL IV SCH (08:30)
[2021-11-05] MEDS: CLOTRIMAZOLE/BETAMETASONE DIPROPIONATE 15 GM TUBE TP SCH ×3 (08:31→16:52)
--- NOTE | 2021-11-05 09:00 | NUR ---
RN NOTE\ PT REMAINED STABLE THROUGHOUT SHIFT. AM MEDS ADM PER MD ORDER. ALL SAFETY MEASURES NOTED AND ACCOUNTED FOR. CALL LIGHT WITHIN REACH. PT CARE TRANSFERRED TO [facility]LIN[facility]OS.
[2021-11-05 12:00] VITALS: BP 125/75
[2021-11-05 16:00] VITALS: BP 139/71
[2021-11-05] MEDS: FUROSEMIDE 40 MG TABLET PO SCH (17:54)
--- NOTE | 2021-11-05 18:32 | NUR ---
SUPERVISOR HAND WORKERS CLOSING NOTE PATIENT REMAINED STABLE THROUGHOUT THE SHIFT. STILL A/O X4. ABLE TO MAKE NEEDS KNOWN. DENIES PAIN AT THIS TIME. CONTINUES ON ROOM AIR WITH NO S/SX OF RESPIRATORY DISTRESS NOTED. IV ACCESS TO LEFT UPPER ARM MIDLINE #18G INTACT, PATENT AND SALINE LOCKED. CONTINUES ON IV ABX. CONTINUES ON TELE MONITOR WITH CURRENT READING A-FIB CONTROLLED. CALL LIGHT WITHIN REACH. ASPIRATION, FALL AND SAFETY PRECAUTIONS MAINTAINED. WILL ENDORSE PLAN OF CARE TO ONCOMING SHIFT.
--- NOTE | 2021-11-05 19:35 | NUR ---
RN OPENING NOTES RECEIVED PATIENT IN BED, AWAKE, A/O X4, VERBALLY RESPONSIVE. ON ROOM AIR AND PT TOLERATED WELL. BREATHING EVEN AND UNLABORED. NO SOB NOTED. IV ACCESS ON YUNIOR MIDLINE #18G. INTACT AND PATENT. NO BLEEDING NOTED. NO C/O PAIN OR DISCOMFORT. NO ACUTE DISTRESS. ALL SAFETY MEASURE IN PLACE. BED IN LOWEST POSITION AND LOCKED. BED ALARM ON. SIDE RAILS UP X2, PLACE CALL LIGHT WITH IN REACH. WILL CONTINUE TO MONITOR.
[2021-11-05 20:00] VITALS: BP 135/96
[2021-11-05] MEDS: VANCOMYCIN 0.75 GM in IV D5W 250 ML IV SCH (20:15)
[2021-11-05] MEDS ORDERED: SENNOSIDES 8.6 MG TABLET PO SCH (22:00)
--- NOTE | 2021-11-05 22:33 | NUR ---
RN NOTES: PT'S BLOOD SUGAR 268, 12 UNITS OF REGULAR INSULIN GIVEN PER SLIDING SCALE. NO S/S OF HYPER/HYPOGLYCEMIA. WILL CONTINUE TO MONITOR
[2021-11-06] VITALS: BP 142/75
--- NOTE | 2021-11-06 00:08 | NUR ---
RN NOTES: PT C/O PAIN ON RT ARM 3/10 PAIN SCALE. TYLENOL 325 MG 2 TABS GIVEN PRN ORDERED. PT TOLERATED WELL. WILL CONTINUE TO MONITOR
[2021-11-06 04:00] VITALS: BP 116/60
--- NOTE | 2021-11-06 06:34 | NUR ---
RN CLOSING NOTES PATIENT IN BED SLEEPING BUT EASILY AROUSABLE, AWAKE, A/O X4, VERBALLY RESPONSIVE. ON ROOM AIR, O2 SAT 94% AND PT TOLERATED WELL. BREATHING EVEN AND UNLABORED. NO SOB NOTED. IV ACCESS ON YUNIOR MIDLINE #18G. INTACT AND PATENT. NO BLEEDING NOTED. NO C/O PAIN OR DISCOMFORT. NO ACUTE DISTRESS. ALL DUE MEDS GIVEN ORDERED. ALL SAFETY MEASURE IN PLACE. BED IN LOWEST POSITION AND LOCKED. BED ALARM ON. SIDE RAILS UP X2, PLACE CALL LIGHT WITH IN REACH. WILL ENDORSE TO MORNING SHIFT NURSE.
--- NOTE | 2021-11-06 07:11 | NUR ---
RN NOTES: PT REMAIN NPO AFTER MIDNIGHT. DR. AGUILAR CALLED, ASKED IF PT IS READY TO DO THE PROCEDURE CARDIAC CATH. MADE AWARE PT, BUT STRONGLY REFUSED TO DO ANY PROCEDURE. EXPLAINED THE RISKS AND BENEFIT BUT STILL STRONGLY REFUSED. MENTIONED HE DOESN'T WANT TO DO ANY PROCEDURE AND HE IS NOT GOING SIGN FOR ANY CONSENT. NOTIFIED DR. AGUILAR.
[2021-11-06 07:14] LABS: BASOPHILS # (AUTO) 0.1 K/uL (0.0-0.2); BASOPHILS % (AUTO) 0.6 % (0.0-2.0); EOSINOPHILS % (AUTO) 1.1 % (0.0-6.0); HEMATOCRIT 38 % (39-51); HEMOGLOBIN 12.1 g/dL (13.5-17.5); LYMPHOCYTES # (AUTO) 1.2 K/uL (0.8-4.8); MEAN CORPUSCULAR HGB CONC 32 g/dl (31.0-36.0); MEAN CORPUSCULAR VOLUME 89 fL (80-96); MONOCYTES # (AUTO) 1.2 K/uL (0.1-1.30); MONOCYTES % (AUTO) 7.6 % (2.0-12.0); NEUTROPHILS # (AUTO) 12.7 K/uL (1.8-8.9); NEUTROPHILS % (AUTO) 82.7 % (43.0-81.0); RED BLOOD CELL COUNT(AUTO) 4.29 MIL/uL (4.5-6.0); WHITE BLOOD COUNT (AUTO) 15.3 K/uL (4.3-11.0)
--- NOTE | 2021-11-06 07:24 | NUR ---
RN OPENING NOTE PATIENT IN BED RESTING A/O X4, NO S/S OF PAIN NOTED AT THIS TIME. ON ROOM AIR, NO DISTRESS OR SHORTNESS OF BREATH NOTED. IV ACCESS YUNIOR MIDLINE, INTACT, PATENT AND FLUSHING WELL. PATIENT ON EXTERNAL MEDICAL REFERRAL COORDINATOR WITH CURRENT READING OF A-FIB. FALL AND SAFETY MEASURES IN PLACE, BED ALARM ON, BED IN LOW AND LOCK POSITION, CALL LIGHT AND TABLE WITHIN EASY REACH, SIDE RAILS UP X2. WILL CONTINUE TO MONITOR.
[2021-11-06 08:00] VITALS: BP 140/70
[2021-11-06 08:01] LABS: CALCIUM, SERUM 8.3 mg/dL (8.5-10.1); CREATININE 0.9 mg/dL (0.6-1.3); POTASSIUM 3.8 mmol/L (3.5-5.1)
[2021-11-06] MEDS: PANTOPRAZOLE 40 MG TABLET.DR PO SCH (08:40)
[2021-11-06] MEDS: FUROSEMIDE 40 MG TABLET PO SCH (08:40)
[2021-11-06] MEDS: DAKINS QUARTER STRENGTH (0.125%) 480 ML BOTTLE TOP SCH (08:41)
[2021-11-06] MEDS: BLOOD SUGAR DIAGNOSTIC 1 EACH STRIP IN SCH ×2 (08:41→12:14)
[2021-11-06] MEDS: Z GUARD REMEDY 4 OZ OINT TP SCH (08:42)
[2021-11-06] MEDS: CLOTRIMAZOLE/BETAMETASONE DIPROPIONATE 15 GM TUBE TP SCH (08:42)
[2021-11-06] MEDS ORDERED: SPIRONOLACTONE 25 MG TABLET PO SCH (09:00)
[2021-11-06 09:42] LABS: PLATELET COUNT (AUTO) 253 K/uL (150-450)
[2021-11-06] MEDS ORDERED: VANC750F2 IV (10:01)
[2021-11-06] MEDS ORDERED: FURO40TA5 PO (10:01)
[2021-11-06 12:00] VITALS: BP 126/70
[2021-11-06] MEDS: ACETAMINOPHEN 325 MG TABLET PO PRN ×3 (12:11→14:52)
[2021-11-06] MEDS: INSULIN REGULAR, HUMAN 100 UNIT/ML 3 ML VIAL SQ PRN (12:14)
[2021-11-06 12:20] VITALS: BP 126/70
[2021-11-06] MEDS ORDERED: METOPROLOL SUCCINATE 25 MG TAB.SR.24H PO SCH (12:30)
[2021-11-06] MEDS ORDERED: LOSARTAN POTASSIUM 25 MG TABLET PO SCH (12:30)
--- NOTE | 2021-11-06 16:10 | NUR ---
DISCHARGE NOTE PATIENT DISCHARGE IN MEDICAL STABLE CONDITION. A/O X4. V/S TAKEN, STABLE AND RECORDED. IV ACCESS YUNIOR MIDLINE, PATIENT WILL BE ON ANTIBIOTICS FOR 7 DAYS. SKIN ASSESSMENT DONE AND PICTURES TAKEN. NAME ARM BAND REMOVED. ALL BELONGINGS CHECKED AND SIGNED. HEALTH TEACHING AND DISCHARGE INSTRUCTIONS GIVEN AND VERBALIZED UNDERSTANDING. PATIENT LEFT UNIT VIA GURNEY WITH NO SIGNS OF DISTRESS, ACCOMPANIED BY PARAMEDICS. REPORT WAS GIVEN TO NURSE (CAMILO) AT [facility]. CHARGE NURSE AWARE OF DISCHARGE.
== END 2021-11-06 16:00 | DRG 853 ==
LOC: ER 16:59 → TELE1 23:55
PROVIDERS: ADMIT Nurse Practitioner Acute Care; ATTEND Internal Medicine
PROC: 0JBQ0ZZ Excision of Right Foot Subcutaneous Tissue and Fascia, Open Approach (ICD-10-PCS; 2021-10-28)
PROC: 0JBQ0ZZ Excision of Right Foot Subcutaneous Tissue and Fascia, Open Approach (ICD-10-PCS; principal; 2021-10-30)
PROC: 05H633Z Insertion of Infusion Device into Left Subclavian Vein, Percutaneous Approach (ICD-10-PCS; 2021-11-02)
PROC: B547ZZA Ultrasonography of Left Subclavian Vein, Guidance (ICD-10-PCS; 2021-11-02)
DX: A40.0 Sepsis due to streptococcus, group A (principal); N17.0 Acute kidney failure with tubular necrosis; I21.4 Non-ST elevation (NSTEMI) myocardial infarction; I50.23 Acute on chronic systolic (congestive) heart failure; L03.116 Cellulitis of left lower limb; L03.115 Cellulitis of right lower limb; E87.1 Hypo-osmolality and hyponatremia; E44.1 Mild protein-calorie malnutrition; L97.419 Non-pressure chronic ulcer of right heel and midfoot with unspecified severity; L97.819 Non-pressure chronic ulcer of other part of right lower leg with unspecified severity; E11.51 Type 2 diabetes mellitus with diabetic peripheral angiopathy without gangrene; I25.10 Atherosclerotic heart disease of native coronary artery without angina pectoris; E11.621 Type 2 diabetes mellitus with foot ulcer; E11.40 Type 2 diabetes mellitus with diabetic neuropathy, unspecified; E66.01 Morbid (severe) obesity due to excess calories; E78.5 Hyperlipidemia, unspecified; E86.0 Dehydration; E88.09 Other disorders of plasma-protein metabolism, not elsewhere classified; I11.0 Hypertensive heart disease with heart failure; I25.2 Old myocardial infarction; I87.2 Venous insufficiency (chronic) (peripheral); L30.4 Erythema intertrigo; Z86.16 Personal history of COVID-19; Z86.711 Personal history of pulmonary embolism; R74.01 Elevation of levels of liver transaminase levels; L89.156 Pressure-induced deep tissue damage of sacral region; L89.326 Pressure-induced deep tissue damage of left buttock; L89.316 Pressure-induced deep tissue damage of right buttock; R60.9 Edema, unspecified; M75.121 Complete rotator cuff tear or rupture of right shoulder, not specified as traumatic; Z79.84 Long term (current) use of oral hypoglycemic drugs
CPT/HCPCS: 36410; 36415; 70450-TC; 71045-TC; 73200-TC; 73620-TC; 76770-TC; 80048-TC; 80061-TC; 80076-TC; 80202-TC; 81001; 82962-TC; 83605-TC; 83735-TC; 83880; 84100-TC; 84484-TC; 85025-TC; 85652-TC; 85730-TC; 86140-TC; 87040-TC; 87081-TC; 87086-TC; 87186-TC; 93307-TC; 93970-TC; 93971-TC; 97112-TC; 97530-TC; A4565; A6253; A6403; A6407; A9575; C9803; G0378; J1650; J1815; J1940; J2270; J2543; J3370; J3480; J7030; J7050; J7060

== ENCOUNTER 2021-12-09 23:26 | Inpatient (IN) | payer MEDICARE, OTHER ==
[~2021-12-09] VITALS: Ht 180.3 cm; Wt 142.0 kg
[~2021-12-09 23:26] MED LIST changes: +ACID1TAB12 PO; +APIX2.5T PO; +ASCO500C17 PO; -ASPI-1420 PO; -ATEN25TA PO; +BUME1TAB8 PO; +CLOP75TA15 PO; +FURO40TA5 PO; +METO25TA4 PO; +MULT-439 PO; +SENN-175 PO; -SIMV-46 PO; +SPIR50TA5 PO; +VANC750F2 IV; +VITA-354 PO
[2021-12-10 01:18] LABS: HEMATOCRIT 40 % (39-51); HEMOGLOBIN 12.6 g/dL (13.5-17.5); LYMPHOCYTES # (AUTO) 0.6 K/uL (0.8-4.8); LYMPHOCYTES % (AUTO) 1.5 % (20.0-44.0); MEAN CORPUSCULAR HGB CONC 31 g/dl (31.0-36.0); MEAN CORPUSCULAR VOLUME 89 fL (80-96); MONOCYTES # (AUTO) 0.5 K/uL (0.1-1.30); MONOCYTES % (AUTO) 1.4 % (2.0-12.0); NEUTROPHILS # (AUTO) 37.8 K/uL (1.8-8.9); NEUTROPHILS % (AUTO) 97.1 % (43.0-81.0); PLATELET COUNT (AUTO) 245 K/uL (150-450); RED BLOOD CELL COUNT(AUTO) 4.56 MIL/uL (4.5-6.0)
[2021-12-10 01:29] LABS: WHITE BLOOD COUNT (AUTO) 38.9 K/uL (4.3-11.0)
[2021-12-10] MEDS ORDERED: VANCOMYCIN 1 GM VIAL ONE (01:59)
[2021-12-10] MEDS ORDERED: VANCOMYCIN 1 GM in IV D5W 250 ML IV ONE (02:00)
[2021-12-10 02:07] LABS: CALCIUM, SERUM 8.1 mg/dL (8.5-10.1); CARBON DIOXIDE 27 mmol/L (21-32); CHLORIDE 96 mmol/L (98-107); CREATININE 1.4 mg/dL (0.6-1.3); POTASSIUM 4.6 mmol/L (3.5-5.1); SODIUM SERUM 127 mmol/L (136-145); UREA NITROGEN, BLOOD 39 mg/dL (7-18)
[2021-12-10 02:11] LABS: GLUCOSE 352 mg/dL (74-106)
[2021-12-10 02:13] LABS: ALANINE AMINOTRANSFERASE 13 U/L (12-78); ALKALINE PHOSPHATASE 136 U/L (46-116); ASPARTATE AMINOTRANSFERASE 19 U/L (15-37); BILIRUBIN,DIRECT 0.2 mg/dL (0.0-0.2); BILIRUBIN,TOTAL 0.4 mg/dL (0.2-1.0); TOTAL PROTEIN, SERUM 5.6 g/dL (6.4-8.2)
[2021-12-10] MEDS ORDERED: IV NS 0.9% 1,000 ML BAG IV ONE ×2 (02:30→03:00)
[2021-12-10] MEDS ORDERED: Z GUARD REMEDY 4 OZ OINT TP PRN ×2 (03:00→13:30)
[2021-12-10] MEDS ORDERED: MORPHINE SULFATE INJ 2 MG/ML DISP.SYRIN IV PRN (03:00)
[2021-12-10] MEDS ORDERED: TEMAZEPAM 15 MG CAPSULE PO PRN (03:00)
[2021-12-10] MEDS ORDERED: MAGNESIUM HYDROXIDE 30 ML UDC PO PRN ×2 (03:00→13:30)
[2021-12-10] MEDS ORDERED: ONDANSETRON HCL/PF 4 MG/2 ML VIAL IVP PRN ×2 (03:00→13:30)
[2021-12-10] MEDS ORDERED: MAG HYDROX/AL HYDROX/SIMETH 30 ML UDC PO PRN ×2 (03:00→13:30)
[2021-12-10] MEDS ORDERED: HYDROCODONE/APAP 5/325MG TABLET PO PRN (03:00)
[2021-12-10] MEDS ORDERED: IV NS 0.9% 1,000 ML IV PRN (03:00)
[2021-12-10] MEDS ORDERED: DEXTROSE 50%-WATER 50 ML DISP.SYRIN IV PRN ×2 (03:00→13:30)
[2021-12-10] MEDS ORDERED: LIDOCAINE 2% JEL UROJET 10 ML MM ONE (03:30)
[2021-12-10 05:05] LABS: BILIRUBIN,URINE NEGATIVE (NEGATIVE); COLOR,URINE YELLOW (YELLOW); LEUKOCYTE ESTERASE ,URINE NEGATIVE (NEGATIVE); NITRITE, URINE NEGATIVE (NEGATIVE); PH,URINE 5.5 (5.0-8.0); PROTEIN,URINE TRACE mg/dl (NEGATIVE); UGLUCOSE 250 MG/DL mg/dL (NEGATIVE); UROBILINOGEN,URINE 0.2 EU/dL (0.2)
[2021-12-10] MEDS ORDERED: MORPHINE SULFATE INJ 4 MG/ML DISP.SYRIN IV PRN (07:00)
[2021-12-10] MEDS ORDERED: FURO-145 PO (07:12)
[2021-12-10] MEDS ORDERED: GABA-532 PO (07:12)
[2021-12-10] MEDS ORDERED: BISA10SU11 RC (07:12)
[2021-12-10] MEDS ORDERED: AMIN30LI2 PO (07:12)
[2021-12-10] MEDS ORDERED: TYL2T PO (07:12)
[2021-12-10] MEDS ORDERED: NA P133E RC (07:12)
[2021-12-10] MEDS ORDERED: ACET-868 PO (07:12)
[2021-12-10] MEDS ORDERED: ASCO500T10 PO (07:12)
[2021-12-10] MEDS ORDERED: MAGN400O6 PO (07:13)
[2021-12-10] MEDS ORDERED: ACET-2605 PO (07:13)
[2021-12-10] MEDS ORDERED: HYDR170P TP (07:32)
[2021-12-10] MEDS ORDERED: POVI3780 TP (07:32)
[2021-12-10] MEDS ORDERED: PANTOPRAZOLE 40 MG TABLET.DR PO ONE (07:46)
[2021-12-10] MEDS: PANTOPRAZOLE 40 MG TABLET.DR PO SCH (07:54)
[2021-12-10] MEDS: BLOOD SUGAR DIAGNOSTIC 1 EACH STRIP VI SCH ×4 (07:55→22:44)
[2021-12-10] MEDS ORDERED: INSULIN REGULAR, HUMAN 100 UNIT/ML 10 ML VIAL ONE (07:57)
[2021-12-10] MEDS: *INSULIN REGULAR(HUMULIN R)HUM 100 UNIT/ML VIAL SQ PRN ×2 (08:06→22:54)
[2021-12-10] MEDS: INSULIN REGULAR, HUMAN 100 UNIT/ML 3 ML VIAL SQ PRN ×2 (08:06→16:06)
[2021-12-10 08:16] LABS: BAND % (MANUAL) 1 % (0.0-5.0); LYMPHOCYTES % (MANUAL) 1 % (16-48); NEUTROPHILS % (MANUAL) 98 (42-76)
[2021-12-10] MEDS ORDERED: ASPIRIN 81 MG TAB.CHEW ONE (09:05)
[2021-12-10] MEDS: ASPIRIN 81 MG TAB.CHEW PO SCH (09:08)
[2021-12-10] MEDS ORDERED: ACETAMINOPHEN ES 500 MG TABLET PO PRN (13:00)
[2021-12-10] MEDS ORDERED: BISACODYL SUPP (10 MG) 10 MG/SUPP.RECT SUPP.RECT RC PRN (13:00)
[2021-12-10] MEDS ORDERED: ACETAMINOPHEN 325 MG TABLET PO PRN ×3 (13:00→13:30)
[2021-12-10] MEDS ORDERED: NA PHOS,M-B/NA PHOS,DI-BA 1 EA ENEMA RC PRN (13:00)
[2021-12-10] MEDS ORDERED: INSULIN REGULAR, HUMAN 100 UNIT/ML 3 ML VIAL SQ PRN (13:30)
[2021-12-10] MEDS ORDERED: *INSULIN REGULAR(HUMULIN R)HUM 100 UNIT/ML VIAL SQ PRN (13:30)
[2021-12-10] MEDS ORDERED: FUROSEMIDE 40 MG/4 ML VIAL ONE ×2 (14:01→17:54)
[2021-12-10] MEDS: FUROSEMIDE 40 MG/4 ML VIAL IV SCH ×2 (14:06→18:00)
[2021-12-10] MEDS ORDERED: ACETAMINOPHEN 325 MG TABLET ONE (15:23)
[2021-12-10] MEDS: VANCOMYCIN 0.75 GM in IV D5W 250 ML IV SCH (15:32)
[2021-12-10] MEDS: ACETAMINOPHEN 325 MG TABLET PO PRN (15:32)
[2021-12-10] MEDS ORDERED: BLOOD SUGAR DIAGNOSTIC 1 EACH STRIP VI SCH (17:30)
[2021-12-10] MEDS ORDERED: APIXABAN 2.5 MG TABLET ONE (17:54)
[2021-12-10] MEDS ORDERED: GABAPENTIN 300 MG CAPSULE ONE (17:54)
[2021-12-10] MEDS: APIXABAN 2.5 MG TABLET PO SCH (18:00)
[2021-12-10] MEDS: GABAPENTIN 100 MG CAPSULE PO SCH (18:00)
[2021-12-10] MEDS ORDERED: CEFEPIME 1 GM in IV D5W 50 ML IV SCH (21:00)
[2021-12-10 21:12] VITALS: BP 93/58
[2021-12-10] MEDS: SENNOSIDES 8.6 MG TABLET PO SCH (22:00)
[2021-12-10 23:52] VITALS: BP 93/58
[2021-12-11] VITALS (7 sets, daily range): BP systolic 91–153; BP diastolic 36–105
[2021-12-11] MEDS ORDERED: CEFEPIME 1 GM VIAL ONE (00:06)
[2021-12-11] MEDS: VANCOMYCIN 0.75 GM in IV D5W 250 ML IV SCH ×2 (03:04→15:48)
[2021-12-11] MEDS: BLOOD SUGAR DIAGNOSTIC 1 EACH STRIP VI SCH ×4 (06:44→22:29)
[2021-12-11] MEDS: INSULIN REGULAR, HUMAN 100 UNIT/ML 3 ML VIAL SQ PRN ×3 (06:46→16:49)
[2021-12-11 07:14] LABS: CALCIUM, SERUM 7.9 mg/dL (8.5-10.1); CREATININE 1.4 mg/dL (0.6-1.3); MAGNESIUM 1.6 mg/dL (1.8-2.4); PHOSPHORUS 3.6 mg/dL (2.5-4.9); POTASSIUM 4.4 mmol/L (3.5-5.1)
[2021-12-11] MEDS ORDERED: Magnesium 1GM/D5W 100ML PREMIX 100 ML IV SCH (08:00)
[2021-12-11 08:13] LABS: BASOPHILS # (AUTO) 0.1 K/uL (0.0-0.2); BASOPHILS % (AUTO) 0.2 % (0.0-2.0); EOSINOPHILS % (AUTO) 1.1 % (0.0-6.0); HEMATOCRIT 42 % (39-51); HEMOGLOBIN 13.3 g/dL (13.5-17.5); LYMPHOCYTES # (AUTO) 1.1 K/uL (0.8-4.8); LYMPHOCYTES % (AUTO) 4.3 % (20.0-44.0); MEAN CORPUSCULAR HGB CONC 32 g/dl (31.0-36.0); MEAN CORPUSCULAR VOLUME 88 fL (80-96); MONOCYTES % (AUTO) 3.8 % (2.0-12.0); NEUTROPHILS # (AUTO) 23.5 K/uL (1.8-8.9); NEUTROPHILS % (AUTO) 90.6 % (43.0-81.0); PLATELET COUNT (AUTO) 234 K/uL (150-450); WHITE BLOOD COUNT (AUTO) 25.9 K/uL (4.3-11.0)
[2021-12-11 08:29] LABS: THYROID STIMULATING HORMONE 2.907 uIU/mL (0.358-3.74)
[2021-12-11] MEDS: CEFEPIME 2 GM in IV D5W 100 ML IV SCH ×2 (09:43→21:32)
[2021-12-11] MEDS: PANTOPRAZOLE 40 MG TABLET.DR PO SCH (09:44)
[2021-12-11] MEDS: CLOPIDOGREL BISULFATE 75 MG TABLET PO SCH (09:44)
[2021-12-11] MEDS: ASPIRIN 81 MG TAB.CHEW PO SCH (09:44)
[2021-12-11] MEDS: GABAPENTIN 100 MG CAPSULE PO SCH ×2 (09:44→16:48)
[2021-12-11] MEDS: METOPROLOL SUCCINATE 25 MG TAB.SR.24H PO SCH (09:45)
[2021-12-11] MEDS: FUROSEMIDE 40 MG/4 ML VIAL IV SCH ×2 (09:45→16:48)
[2021-12-11] MEDS: APIXABAN 2.5 MG TABLET PO SCH ×2 (09:46→16:49)
[2021-12-11] MEDS ORDERED: MAGNESIUM OXIDE 400 MG TABLET PO ONE (10:00)
[2021-12-11] MEDS: ACETAMINOPHEN 325 MG TABLET PO PRN (13:43)
[2021-12-11] MEDS: SENNOSIDES 8.6 MG TABLET PO SCH (22:22)
[2021-12-11] MEDS: *INSULIN REGULAR(HUMULIN R)HUM 100 UNIT/ML VIAL SQ PRN (22:36)
[2021-12-12] VITALS: BP_SYST 117; BP_SYST 137; BP_DIAS 73
[2021-12-12] MEDS: VANCOMYCIN 0.75 GM in IV D5W 250 ML IV SCH ×2 (02:50→15:00)
[2021-12-12 04:00] VITALS: BP 120/61
[2021-12-12] MEDS: BLOOD SUGAR DIAGNOSTIC 1 EACH STRIP VI SCH ×4 (06:47→21:28)
[2021-12-12] MEDS: INSULIN REGULAR, HUMAN 100 UNIT/ML 3 ML VIAL SQ PRN ×3 (06:49→18:12)
[2021-12-12 08:00] VITALS: BP 141/74
[2021-12-12] MEDS: GABAPENTIN 100 MG CAPSULE PO SCH ×2 (08:34→16:02)
[2021-12-12] MEDS: PANTOPRAZOLE 40 MG TABLET.DR PO SCH (08:34)
[2021-12-12] MEDS: CLOPIDOGREL BISULFATE 75 MG TABLET PO SCH (08:35)
[2021-12-12] MEDS: APIXABAN 2.5 MG TABLET PO SCH ×2 (08:35→16:03)
[2021-12-12] MEDS: FUROSEMIDE 40 MG/4 ML VIAL IV SCH ×2 (08:36→16:02)
[2021-12-12] MEDS: METOPROLOL SUCCINATE 25 MG TAB.SR.24H PO SCH (08:41)
[2021-12-12 08:45] LABS: BASOPHILS % (AUTO) 0.2 % (0.0-2.0); HEMATOCRIT 43 % (39-51); HEMOGLOBIN 13.5 g/dL (13.5-17.5); LYMPHOCYTES # (AUTO) 0.9 K/uL (0.8-4.8); LYMPHOCYTES % (AUTO) 4.5 % (20.0-44.0); MEAN CORPUSCULAR HGB CONC 31 g/dl (31.0-36.0); MEAN CORPUSCULAR VOLUME 90 fL (80-96); MONOCYTES # (AUTO) 0.7 K/uL (0.1-1.30); MONOCYTES % (AUTO) 3.5 % (2.0-12.0); NEUTROPHILS # (AUTO) 18.8 K/uL (1.8-8.9); NEUTROPHILS % (AUTO) 90.8 % (43.0-81.0); PLATELET COUNT (AUTO) 265 K/uL (150-450); RED BLOOD CELL COUNT(AUTO) 4.85 MIL/uL (4.5-6.0); WHITE BLOOD COUNT (AUTO) 20.7 K/uL (4.3-11.0)
[2021-12-12] MEDS: CEFEPIME 2 GM in IV D5W 100 ML IV SCH ×2 (08:50→21:14)
[2021-12-12 08:54] LABS: CALCIUM, SERUM 7.7 mg/dL (8.5-10.1); CREATININE 1.2 mg/dL (0.6-1.3); MAGNESIUM 1.8 mg/dL (1.8-2.4); PHOSPHORUS 3.5 mg/dL (2.5-4.9); POTASSIUM 4.2 mmol/L (3.5-5.1)
[2021-12-12] MEDS: THERAHONEY GEL 1.5 OZ TUBE TP SCH (12:05)
[2021-12-12 16:00] VITALS: BP 136/68
[2021-12-12] MEDS: ACETAMINOPHEN 325 MG TABLET PO PRN (16:03)
[2021-12-12] MEDS: VANCOMYCIN 1 GM in IV D5W 250ml IV SCH (19:59)
[2021-12-12 20:00] VITALS: BP 125/63
[2021-12-12] MEDS: SENNOSIDES 8.6 MG TABLET PO SCH (21:14)
[2021-12-12] MEDS: *INSULIN REGULAR(HUMULIN R)HUM 100 UNIT/ML VIAL SQ PRN (21:31)
[2021-12-13] VITALS: BP 118/63
[2021-12-13 04:00] VITALS: BP 115/71
[2021-12-13 06:26] LABS: BASOPHILS % (AUTO) 0.1 % (0.0-2.0); EOSINOPHILS % (AUTO) 1.4 % (0.0-6.0); HEMATOCRIT 39 % (39-51); HEMOGLOBIN 12.7 g/dL (13.5-17.5); LYMPHOCYTES % (AUTO) 5.5 % (20.0-44.0); MEAN CORPUSCULAR HGB CONC 32 g/dl (31.0-36.0); MEAN CORPUSCULAR VOLUME 87 fL (80-96); MONOCYTES # (AUTO) 0.7 K/uL (0.1-1.30); MONOCYTES % (AUTO) 4.1 % (2.0-12.0); NEUTROPHILS % (AUTO) 88.9 % (43.0-81.0); PLATELET COUNT (AUTO) 279 K/uL (150-450); RED BLOOD CELL COUNT(AUTO) 4.52 MIL/uL (4.5-6.0)
[2021-12-13] MEDS: BLOOD SUGAR DIAGNOSTIC 1 EACH STRIP VI SCH ×4 (06:34→22:40)
[2021-12-13] MEDS: INSULIN REGULAR, HUMAN 100 UNIT/ML 3 ML VIAL SQ PRN ×3 (06:36→16:48)
[2021-12-13 06:57] LABS: CALCIUM, SERUM 7.4 mg/dL (8.5-10.1); CREATININE 1.1 mg/dL (0.6-1.3); POTASSIUM 4.2 mmol/L (3.5-5.1)
[2021-12-13 08:00] VITALS: BP 133/58
[2021-12-13] MEDS: FUROSEMIDE 40 MG/4 ML VIAL IV SCH ×2 (08:15→16:29)
[2021-12-13] MEDS: PANTOPRAZOLE 40 MG TABLET.DR PO SCH (08:17)
[2021-12-13] MEDS: GABAPENTIN 100 MG CAPSULE PO SCH ×2 (08:17→16:29)
[2021-12-13] MEDS: CLOPIDOGREL BISULFATE 75 MG TABLET PO SCH (08:17)
[2021-12-13] MEDS: METOPROLOL SUCCINATE 25 MG TAB.SR.24H PO SCH (08:18)
[2021-12-13] MEDS: THERAHONEY GEL 1.5 OZ TUBE TP SCH (08:20)
[2021-12-13] MEDS: APIXABAN 2.5 MG TABLET PO SCH ×2 (08:21→16:30)
[2021-12-13] MEDS: CEFEPIME 2 GM in IV D5W 100 ML IV SCH ×2 (08:25→21:22)
[2021-12-13 16:00] VITALS: BP 104/61
[2021-12-13] MEDS: VANCOMYCIN 1 GM in IV D5W 250ml IV SCH (20:01)
[2021-12-13 20:08] VITALS: BP 114/65
[2021-12-13] MEDS: SENNOSIDES 8.6 MG TABLET PO SCH (21:22)
[2021-12-13] MEDS: *INSULIN REGULAR(HUMULIN R)HUM 100 UNIT/ML VIAL SQ PRN (21:25)
[2021-12-14 00:10] VITALS: BP 121/56
[2021-12-14] MEDS: IV NS 0.9% 1,000 ML IV PRN (00:10)
[2021-12-14 04:26] VITALS: BP 133/64
[2021-12-14] MEDS: BLOOD SUGAR DIAGNOSTIC 1 EACH STRIP VI SCH ×4 (06:50→21:25)
[2021-12-14] MEDS: INSULIN REGULAR, HUMAN 100 UNIT/ML 3 ML VIAL SQ PRN ×3 (06:51→16:59)
[2021-12-14 08:00] VITALS: BP 141/52
[2021-12-14] MEDS: CEFEPIME 2 GM in IV D5W 100 ML IV SCH ×2 (08:23→21:25)
[2021-12-14] MEDS: METOPROLOL SUCCINATE 25 MG TAB.SR.24H PO SCH (08:24)
[2021-12-14] MEDS: CLOPIDOGREL BISULFATE 75 MG TABLET PO SCH (08:25)
[2021-12-14] MEDS: APIXABAN 2.5 MG TABLET PO SCH ×2 (08:25→16:58)
[2021-12-14] MEDS: GABAPENTIN 100 MG CAPSULE PO SCH ×2 (08:26→16:57)
[2021-12-14] MEDS: PANTOPRAZOLE 40 MG TABLET.DR PO SCH (08:26)
[2021-12-14] MEDS: FUROSEMIDE 40 MG/4 ML VIAL IV SCH ×2 (08:26→16:57)
[2021-12-14] MEDS: THERAHONEY GEL 1.5 OZ TUBE TP SCH (08:29)
[2021-12-14 11:36] LABS: BASOPHILS # (AUTO) 0.1 K/uL (0.0-0.2); BASOPHILS % (AUTO) 0.4 % (0.0-2.0); EOSINOPHILS % (AUTO) 1.6 % (0.0-6.0); HEMATOCRIT 40 % (39-51); HEMOGLOBIN 12.9 g/dL (13.5-17.5); LYMPHOCYTES % (AUTO) 5.7 % (20.0-44.0); MEAN CORPUSCULAR HGB CONC 32 g/dl (31.0-36.0); MEAN CORPUSCULAR VOLUME 86 fL (80-96); MONOCYTES # (AUTO) 0.8 K/uL (0.1-1.30); MONOCYTES % (AUTO) 4.6 % (2.0-12.0); NEUTROPHILS # (AUTO) 15.8 K/uL (1.8-8.9); NEUTROPHILS % (AUTO) 87.7 % (43.0-81.0); PLATELET COUNT (AUTO) 330 K/uL (150-450); RED BLOOD CELL COUNT(AUTO) 4.67 MIL/uL (4.5-6.0); WHITE BLOOD COUNT (AUTO) 18.1 K/uL (4.3-11.0)
[2021-12-14 11:50] LABS: CALCIUM, SERUM 7.4 mg/dL (8.5-10.1); CREATININE 1.1 mg/dL (0.6-1.3); MAGNESIUM 1.6 mg/dL (1.8-2.4); PHOSPHORUS 2.1 mg/dL (2.5-4.9); POTASSIUM 4.4 mmol/L (3.5-5.1)
[2021-12-14 16:00] VITALS: BP 128/70
[2021-12-14] MEDS ORDERED: K PHOS NEUTRAL 250 MG TABLET PO ONE (17:00)
[2021-12-14 20:00] VITALS: BP 124/62
[2021-12-14] MEDS: VANCOMYCIN 1 GM in IV D5W 250ml IV SCH (20:23)
[2021-12-14] MEDS: SENNOSIDES 8.6 MG TABLET PO SCH (21:24)
[2021-12-14] MEDS: *INSULIN REGULAR(HUMULIN R)HUM 100 UNIT/ML VIAL SQ PRN (21:48)
[2021-12-14 23:47] VITALS: BP 103/41
[2021-12-15] MEDS: IV NS 0.9% 1,000 ML IV PRN (03:30)
[2021-12-15 04:00] VITALS: BP 127/58
[2021-12-15 06:20] LABS: CALCIUM, SERUM 7.5 mg/dL (8.5-10.1); MAGNESIUM 1.6 mg/dL (1.8-2.4); PHOSPHORUS 2.5 mg/dL (2.5-4.9); POTASSIUM 3.8 mmol/L (3.5-5.1)
[2021-12-15 06:24] LABS: BASOPHILS % (AUTO) 0.2 % (0.0-2.0); EOSINOPHILS % (AUTO) 2.7 % (0.0-6.0); HEMATOCRIT 40 % (39-51); LYMPHOCYTES # (AUTO) 1.5 K/uL (0.8-4.8); LYMPHOCYTES % (AUTO) 8.5 % (20.0-44.0); MEAN CORPUSCULAR HGB CONC 32 g/dl (31.0-36.0); MEAN CORPUSCULAR VOLUME 86 fL (80-96); MONOCYTES # (AUTO) 1.3 K/uL (0.1-1.30); MONOCYTES % (AUTO) 7.6 % (2.0-12.0); NEUTROPHILS # (AUTO) 13.9 K/uL (1.8-8.9); PLATELET COUNT (AUTO) 356 K/uL (150-450); RED BLOOD CELL COUNT(AUTO) 4.67 MIL/uL (4.5-6.0); WHITE BLOOD COUNT (AUTO) 17.2 K/uL (4.3-11.0)
[2021-12-15] MEDS: INSULIN REGULAR, HUMAN 100 UNIT/ML 3 ML VIAL SQ PRN ×3 (06:28→17:36)
[2021-12-15] MEDS: BLOOD SUGAR DIAGNOSTIC 1 EACH STRIP VI SCH ×4 (06:39→21:22)
[2021-12-15 08:00] VITALS: BP 140/74
[2021-12-15] MEDS: PANTOPRAZOLE 40 MG TABLET.DR PO SCH (08:00)
[2021-12-15] MEDS: Magnesium 1GM/D5W 100ML PREMIX 100 ML IV SCH ×2 (08:09→09:20)
[2021-12-15] MEDS: FUROSEMIDE 40 MG/4 ML VIAL IV SCH (08:36)
[2021-12-15] MEDS: GABAPENTIN 100 MG CAPSULE PO SCH ×2 (08:36→17:38)
[2021-12-15] MEDS: CLOPIDOGREL BISULFATE 75 MG TABLET PO SCH (08:37)
[2021-12-15] MEDS: METOPROLOL SUCCINATE 25 MG TAB.SR.24H PO SCH (08:37)
[2021-12-15] MEDS: APIXABAN 2.5 MG TABLET PO SCH ×2 (08:40→17:38)
[2021-12-15] MEDS: THERAHONEY GEL 1.5 OZ TUBE TP SCH (08:56)
[2021-12-15] MEDS: CEFEPIME 2 GM in IV D5W 100 ML IV SCH ×2 (09:32→21:28)
[2021-12-15 16:00] VITALS: BP 143/67
[2021-12-15 20:00] VITALS: BP 132/64
[2021-12-15] MEDS: VANCOMYCIN 1 GM in IV D5W 250ml IV SCH (20:29)
[2021-12-15] MEDS: *INSULIN REGULAR(HUMULIN R)HUM 100 UNIT/ML VIAL SQ PRN (21:13)
[2021-12-15] MEDS: SENNOSIDES 8.6 MG TABLET PO SCH (21:28)
[2021-12-16] MEDS: INSULIN REGULAR, HUMAN 100 UNIT/ML 3 ML VIAL SQ PRN ×4 (05:37→23:49)
[2021-12-16] MEDS: BLOOD SUGAR DIAGNOSTIC 1 EACH STRIP VI SCH ×4 (05:37→23:45)
[2021-12-16 06:15] LABS: BASOPHILS # (AUTO) 0.1 K/uL (0.0-0.2); BASOPHILS % (AUTO) 0.5 % (0.0-2.0); EOSINOPHILS % (AUTO) 3.2 % (0.0-6.0); HEMATOCRIT 41 % (39-51); HEMOGLOBIN 13.1 g/dL (13.5-17.5); LYMPHOCYTES # (AUTO) 1.2 K/uL (0.8-4.8); LYMPHOCYTES % (AUTO) 7.9 % (20.0-44.0); MEAN CORPUSCULAR HGB CONC 32 g/dl (31.0-36.0); MEAN CORPUSCULAR VOLUME 87 fL (80-96); MONOCYTES # (AUTO) 1.3 K/uL (0.1-1.30); MONOCYTES % (AUTO) 8.5 % (2.0-12.0); NEUTROPHILS # (AUTO) 12.5 K/uL (1.8-8.9); NEUTROPHILS % (AUTO) 79.9 % (43.0-81.0); PLATELET COUNT (AUTO) 364 K/uL (150-450); WHITE BLOOD COUNT (AUTO) 15.6 K/uL (4.3-11.0)
[2021-12-16 07:23] LABS: CALCIUM, SERUM 7.3 mg/dL (8.5-10.1); CREATININE 1.1 mg/dL (0.6-1.3); MAGNESIUM 1.7 mg/dL (1.8-2.4); POTASSIUM 3.9 mmol/L (3.5-5.1)
[2021-12-16 07:41] LABS: BAND % (MANUAL) 6 % (0.0-5.0); EOSINOPHILS % (MANUAL) 1 % (0-4); LYMPHOCYTES % (MANUAL) 12 % (16-48); METAMYELOCYTES % 2 % (0-0); MONOCYTES % (MANUAL) 4 % (0-11.0); MYELOCYTES % 2 % (0-0); NEUTROPHILS % (MANUAL) 73 (42-76)
[2021-12-16 08:00] VITALS: BP 119/54
[2021-12-16] MEDS: CLOPIDOGREL BISULFATE 75 MG TABLET PO SCH (08:25)
[2021-12-16] MEDS: GABAPENTIN 100 MG CAPSULE PO SCH ×2 (08:25→16:18)
[2021-12-16] MEDS: PANTOPRAZOLE 40 MG TABLET.DR PO SCH (08:25)
[2021-12-16] MEDS: METOPROLOL SUCCINATE 25 MG TAB.SR.24H PO SCH (08:26)
[2021-12-16] MEDS: CEFEPIME 2 GM in IV D5W 100 ML IV SCH ×2 (08:27→22:05)
[2021-12-16] MEDS: THERAHONEY GEL 1.5 OZ TUBE TP SCH (08:27)
[2021-12-16] MEDS: APIXABAN 2.5 MG TABLET PO SCH ×2 (08:30→16:19)
[2021-12-16] MEDS ORDERED: FUROSEMIDE 40 MG/4 ML VIAL IV SCH (09:00)
[2021-12-16] MEDS ORDERED: MAGNESIUM OXIDE 400 MG TABLET PO ONE (11:30)
[2021-12-16] MEDS: GLUCERNA SHAKE 237 ML CAN PO SCH ×2 (12:58→17:15)
[2021-12-16] MEDS: BUMETANIDE (1 MG) 1 MG TABLET PO SCH (14:57)
[2021-12-16] MEDS: ACETAMINOPHEN 325 MG TABLET PO PRN (15:08)
[2021-12-16 16:00] VITALS: BP 145/60
[2021-12-16 20:00] VITALS: BP 102/62
[2021-12-16] MEDS: VANCOMYCIN 1 GM in IV D5W 250ml IV SCH (21:31)
[2021-12-16] MEDS: CLOTRIMAZOLE/BETAMETASONE DIPROPIONATE 15 GM TUBE TP SCH (22:00)
[2021-12-16] MEDS: SENNOSIDES 8.6 MG TABLET PO SCH (22:46)
[2021-12-17] MEDS: ACETAMINOPHEN 325 MG TABLET PO PRN (01:57)
[2021-12-17 06:26] LABS: BASOPHILS # (AUTO) 0.1 K/uL (0.0-0.2); BASOPHILS % (AUTO) 0.8 % (0.0-2.0); EOSINOPHILS % (AUTO) 3.7 % (0.0-6.0); HEMATOCRIT 42 % (39-51); HEMOGLOBIN 13.3 g/dL (13.5-17.5); LYMPHOCYTES # (AUTO) 1.6 K/uL (0.8-4.8); MEAN CORPUSCULAR HGB CONC 32 g/dl (31.0-36.0); MEAN CORPUSCULAR VOLUME 87 fL (80-96); MONOCYTES # (AUTO) 1.2 K/uL (0.1-1.30); MONOCYTES % (AUTO) 9.2 % (2.0-12.0); NEUTROPHILS % (AUTO) 74.3 % (43.0-81.0); PLATELET COUNT (AUTO) 386 K/uL (150-450); RED BLOOD CELL COUNT(AUTO) 4.78 MIL/uL (4.5-6.0); WHITE BLOOD COUNT (AUTO) 13.5 K/uL (4.3-11.0)
[2021-12-17 07:06] LABS: CALCIUM, SERUM 7.9 mg/dL (8.5-10.1); MAGNESIUM 1.5 mg/dL (1.8-2.4); PHOSPHORUS 2.2 mg/dL (2.5-4.9)
[2021-12-17] MEDS: BLOOD SUGAR DIAGNOSTIC 1 EACH STRIP VI SCH ×4 (07:36→21:37)
[2021-12-17] MEDS: INSULIN REGULAR, HUMAN 100 UNIT/ML 3 ML VIAL SQ PRN ×3 (07:40→17:14)
[2021-12-17] MEDS: CLOPIDOGREL BISULFATE 75 MG TABLET PO SCH (08:22)
[2021-12-17] MEDS: BUMETANIDE (1 MG) 1 MG TABLET PO SCH ×2 (08:22→16:41)
[2021-12-17] MEDS: PANTOPRAZOLE 40 MG TABLET.DR PO SCH (08:22)
[2021-12-17] MEDS: METOPROLOL SUCCINATE 25 MG TAB.SR.24H PO SCH (08:23)
[2021-12-17] MEDS: GABAPENTIN 100 MG CAPSULE PO SCH ×2 (08:23→16:40)
[2021-12-17] MEDS: CEFEPIME 2 GM in IV D5W 100 ML IV SCH ×2 (08:24→21:19)
[2021-12-17] MEDS: APIXABAN 2.5 MG TABLET PO SCH ×2 (08:24→17:15)
[2021-12-17] MEDS: GLUCERNA SHAKE 237 ML CAN PO SCH ×2 (08:24→16:41)
[2021-12-17] MEDS: THERAHONEY GEL 1.5 OZ TUBE TP SCH (09:00)
[2021-12-17] MEDS: CLOTRIMAZOLE/BETAMETASONE DIPROPIONATE 15 GM TUBE TP SCH ×2 (11:08→16:41)
[2021-12-17] MEDS ORDERED: MAGNESIUM OXIDE 400 MG TABLET PO ONE (12:30)
[2021-12-17] MEDS ORDERED: K PHOS NEUTRAL 250 MG TABLET PO ONE (13:30)
[2021-12-17] MEDS: VANCOMYCIN 1 GM in IV D5W 250ml IV SCH (19:50)
[2021-12-17] MEDS: SENNOSIDES 8.6 MG TABLET PO SCH (21:36)
[2021-12-17] MEDS: *INSULIN REGULAR(HUMULIN R)HUM 100 UNIT/ML VIAL SQ PRN (21:48)
[2021-12-18 06:21] LABS: BASOPHILS # (AUTO) 0.1 K/uL (0.0-0.2); BASOPHILS % (AUTO) 0.5 % (0.0-2.0); HEMATOCRIT 40 % (39-51); HEMOGLOBIN 12.7 g/dL (13.5-17.5); LYMPHOCYTES # (AUTO) 1.2 K/uL (0.8-4.8); LYMPHOCYTES % (AUTO) 7.6 % (20.0-44.0); MEAN CORPUSCULAR HGB CONC 32 g/dl (31.0-36.0); MEAN CORPUSCULAR VOLUME 87 fL (80-96); MONOCYTES # (AUTO) 1.2 K/uL (0.1-1.30); MONOCYTES % (AUTO) 7.6 % (2.0-12.0); NEUTROPHILS # (AUTO) 12.5 K/uL (1.8-8.9); NEUTROPHILS % (AUTO) 82.3 % (43.0-81.0); PLATELET COUNT (AUTO) 400 K/uL (150-450); RED BLOOD CELL COUNT(AUTO) 4.62 MIL/uL (4.5-6.0); WHITE BLOOD COUNT (AUTO) 15.2 K/uL (4.3-11.0)
[2021-12-18] MEDS: BLOOD SUGAR DIAGNOSTIC 1 EACH STRIP VI SCH ×2 (06:33→11:29)
[2021-12-18] MEDS: INSULIN REGULAR, HUMAN 100 UNIT/ML 3 ML VIAL SQ PRN ×2 (06:34→11:11)
[2021-12-18] MEDS: ACETAMINOPHEN 325 MG TABLET PO PRN (06:56)
[2021-12-18 07:13] LABS: CALCIUM, SERUM 7.6 mg/dL (8.5-10.1); CREATININE 1.2 mg/dL (0.6-1.3); MAGNESIUM 1.5 mg/dL (1.8-2.4); PHOSPHORUS 2.7 mg/dL (2.5-4.9)
[2021-12-18 08:00] VITALS: BP 127/57
[2021-12-18] MEDS: CLOPIDOGREL BISULFATE 75 MG TABLET PO SCH (08:37)
[2021-12-18] MEDS: PANTOPRAZOLE 40 MG TABLET.DR PO SCH (08:37)
[2021-12-18] MEDS: CLOTRIMAZOLE/BETAMETASONE DIPROPIONATE 15 GM TUBE TP SCH (08:37)
[2021-12-18] MEDS: GABAPENTIN 100 MG CAPSULE PO SCH (08:37)
[2021-12-18] MEDS: BUMETANIDE (1 MG) 1 MG TABLET PO SCH (08:37)
[2021-12-18 08:38] VITALS: BP 127/57
[2021-12-18] MEDS: METOPROLOL SUCCINATE 25 MG TAB.SR.24H PO SCH (08:38)
[2021-12-18] MEDS: THERAHONEY GEL 1.5 OZ TUBE TP SCH (08:38)
[2021-12-18] MEDS: CEFEPIME 2 GM in IV D5W 100 ML IV SCH (08:38)
[2021-12-18] MEDS: GLUCERNA SHAKE 237 ML CAN PO SCH (08:38)
[2021-12-18] MEDS: APIXABAN 2.5 MG TABLET PO SCH (09:26)
[2021-12-18] MEDS ORDERED: FURO-145 PO (10:22)
[2021-12-18] MEDS ORDERED: CEFE2FRO IV (10:28)
[2021-12-18] MEDS ORDERED: VANC1PLA9 IV (10:28)
[2021-12-18] MEDS ORDERED: MAGNESIUM OXIDE 400 MG TABLET PO ONE (12:30)
== END 2021-12-18 14:55 | DRG 264 ==
LOC: ER 23:30 → TRANSITION 12-10 04:00 → MED 12-10 20:09 → TELE 12-10 22:11 → MED 12-15 13:52
PROVIDERS: ADMIT Internal Medicine; ATTEND Internal Medicine
PROC: 0JBQ0ZZ Excision of Right Foot Subcutaneous Tissue and Fascia, Open Approach (ICD-10-PCS; principal; 2021-12-11)
DX: I13.0 Hypertensive heart and chronic kidney disease with heart failure and stage 1 through stage 4 chronic kidney disease, or unspecified chronic kidney disease (principal); E11.00 Type 2 diabetes mellitus with hyperosmolarity without nonketotic hyperglycemic-hyperosmolar coma (NKHHC); I21.4 Non-ST elevation (NSTEMI) myocardial infarction; I50.43 Acute on chronic combined systolic (congestive) and diastolic (congestive) heart failure; N17.0 Acute kidney failure with tubular necrosis; L03.115 Cellulitis of right lower limb; E44.1 Mild protein-calorie malnutrition; E87.1 Hypo-osmolality and hyponatremia; G81.91 Hemiplegia, unspecified affecting right dominant side; L97.819 Non-pressure chronic ulcer of other part of right lower leg with unspecified severity; I87.311 Chronic venous hypertension (idiopathic) with ulcer of right lower extremity; L03.116 Cellulitis of left lower limb; M86.171 Other acute osteomyelitis, right ankle and foot; I42.9 Cardiomyopathy, unspecified; Z79.84 Long term (current) use of oral hypoglycemic drugs; E11.621 Type 2 diabetes mellitus with foot ulcer; I25.10 Atherosclerotic heart disease of native coronary artery without angina pectoris; Z20.822 Contact with and (suspected) exposure to COVID-19; L97.519 Non-pressure chronic ulcer of other part of right foot with unspecified severity; E11.22 Type 2 diabetes mellitus with diabetic chronic kidney disease; N18.9 Chronic kidney disease, unspecified; E11.40 Type 2 diabetes mellitus with diabetic neuropathy, unspecified; E11.51 Type 2 diabetes mellitus with diabetic peripheral angiopathy without gangrene; E11.622 Type 2 diabetes mellitus with other skin ulcer; E88.09 Other disorders of plasma-protein metabolism, not elsewhere classified; I25.2 Old myocardial infarction; Z86.16 Personal history of COVID-19; Z86.19 Personal history of other infectious and parasitic diseases; F20.9 Schizophrenia, unspecified; Z88.6 Allergy status to analgesic agent; Z91.013 Allergy to seafood; Z79.899 Other long term (current) drug therapy; Z79.02 Long term (current) use of antithrombotics/antiplatelets; Z79.01 Long term (current) use of anticoagulants; I87.2 Venous insufficiency (chronic) (peripheral); E86.1 Hypovolemia; B96.1 Klebsiella pneumoniae [K. pneumoniae] as the cause of diseases classified elsewhere; L89.156 Pressure-induced deep tissue damage of sacral region; Z82.3 Family history of stroke; Z86.711 Personal history of pulmonary embolism; M75.121 Complete rotator cuff tear or rupture of right shoulder, not specified as traumatic; Z87.39 Personal history of other diseases of the musculoskeletal system and connective tissue; E66.01 Morbid (severe) obesity due to excess calories; R74.01 Elevation of levels of liver transaminase levels; E11.69 Type 2 diabetes mellitus with other specified complication; I35.0 Nonrheumatic aortic (valve) stenosis; B96.5 Pseudomonas (aeruginosa) (mallei) (pseudomallei) as the cause of diseases classified elsewhere; B96.4 Proteus (mirabilis) (morganii) as the cause of diseases classified elsewhere; B95.62 Methicillin resistant Staphylococcus aureus infection as the cause of diseases classified elsewhere
CPT/HCPCS: 36415; 71045-TC; 76770-TC; 80048-TC; 80076-TC; 80202-TC; 82962-TC; 83605-TC; 83735-TC; 84100-TC; 84300-TC; 84443-TC; 84484-TC; 85025-TC; 85730-TC; 87040-TC; 87070-TC; 87081-TC; 87086-TC; 87186-TC; 93307-TC; A4217; A6253; A6403; A6407; C9803; G0378; J0692; J1815; J1940; J2270; J2405; J3370; J3475; J3490; J7030; J7050; J7060